=== PATIENT | female | born 1950 | race Caucasian/White ===

== ENCOUNTER 2021-09-22 12:44 | Emergency (ER) | payer OTHER, SELFPAY ==
[2021-09-22 12:46] VITALS: BP 129/80; PULSE 103; RESP 16; TEMP 36.3; O2SAT 94; BMI 30.2
--- NOTE | 2021-09-22 13:25 | RAD_ITS ---
STUDY: X-RAY - LEFT FOOT CLINICAL: Left foot pain, left foot injury 1 week ago. TECHNIQUE: 3 view(s) of the foot. COMPARISON: None. FINDINGS: There is a small plantar calcaneal enthesophyte. There is a small avulsion fracture at the medial aspect of the medial cuneiform only demonstrated on the oblique view. Normal visualized subtalar, talonavicular, calcaneocuboid, tarsal and tarsometatarsal articulations. Normal metatarsi. There are marginal osteophytes and severe joint space narrowing of the metatarsophalangeal joint of the great toe. Normal tibial and fibular sesamoid bones. Normal interphalangeal joint of the great toe. Normal phalanges of the great toe. Normal second through fifth metatarsophalangeal joints. Normal interphalangeal joints and phalanges of the lesser toes. The soft tissue structures are unremarkable. RAD/Foot min 3 Views IMPRESSION: Small avulsion fracture at the medial aspect of the medial cuneiform of indeterminate age. Osteoarthritis of the first metatarsophalangeal joint. Electronically Signed: Kodak Kelly MD at 14:06 EST Tel , Service support ,
--- NOTE | 2021-09-22 13:37 | ED.VIS.LOWEX ---
HPI History of Present Illness Chief Complaint: Lower Extremity Injury Detail of Chief Complaint: Left foot injury. Informant: patient and spouse/S.O. Occured/Mechanism Mechanism/Context: Yes injury Onset/Context/Timing Onset: Days Context: Sudden Onset Timing: Continuous Current Severity: Mild Maximum Severity: Mild Associated Symptoms Associated Symptoms: Negative for Parasthesia, Weakness and Loss of Funtion Narrative Narrative: 71-year-old female history of COPD. States she was getting in bed about a week ago when she lost her balance fell and injured her left foot. She has had bruising and swelling to it since that time. It is still very uncomfortable to walk on and she wanted evaluated. She denies any ankle injury. She denies any other complaints. Prior similar symptoms: No Recent Illness/Hospitalization: No PFSH PFSH Allergy/AdvReac Type Severity Reaction Status Date / Time No Known Allergies Allergy Verified 09/22/21 12:45 Social History Smoking Status: Current every day smoker tobacco type: cigarettes ROS ROS ED ROS Narrative Denies recent illness. Review of Systems ROS Unobtainable: Denies due to encephalopathy Constitutional Constitutional ED: Denies fever(s) Eyes Eyes: Denies change in vision ENT ENT ED: Denies ear pain Cardiovascular Cardiovascular: Denies chest pain Respiratory/Chest Respiratory/Chest: Denies dyspnea Gastrointestinal Gastrointestinal: Denies abdominal pain Genitourinary Genitourinary ED: Denies dysuria Musculoskeletal Musculoskeletal: Denies myalgias Integumentary Denies rash Neurologic Neurologic: Denies headache(s) Psychiatric Psychiatric: Denies depression Endocrine Endocrinology: Denies polyuria Hematologic/Lymphatic Hematologic/Lymphatic: Denies easy bruising Allergic/Immunologic Allergic/Immunologic ED: Denies urticaria EXAM Physical Exam Narrative Exam Narrative: 71-year-old female no acute distress vital signs stable afebrile. HEENT exam unremarkable atraumatic moist with membranes. Neck nontender. Lungs clear to auscultation. Heart regular rhythm no murmur. Chest wall nontender. Abdomen soft nontender normal bowel sounds no peritoneal signs. Pelvic girdle intact. Hips are nontender. No shortening or rotation. Normal flexion-extension. Both upper extremities are nontender no deformity. Normal range of motion. Right lower extremity nontender normal range of motion. Left lower extremity left foot is tender swollen and bruised. X-ray will be obtained. Ankle and knee are nontender. Neurologically she is awake and alert. Const Vital Signs: 09/22/21 12:46 Temperature 97.3 F L Temperature Source Temporal Pulse Rate 103 H Respiratory Rate 16 Blood Pressure 129/80 H Blood Pressure Mean 96 Pulse Ox 94 Oxygen Delivery Method Room Air Positive well nourished, well developed and obese; Negative for cachectic, contractures or unkempt General Appearance ED: well developed and NAD; Negative for unkempt, cachectic or contractures Nutritional Appearance: obese; Negative for cachectic HEENT Reports moist mucous membranes normocephalic and atraumatic; Negative for trauma or tenderness Eyes PERRL Neck full ROM and supple Thyroid: Negative for tender Chest Wall inspection of chest normal and palpation of chest normal Resp normal respiratory effort, no retractions and clear to auscultation bilaterally Auscultation: Negative for rales, rhonchi or wheezes Cardio regular rate, regular rhythm, S1 normal heart sound, S2 normal heart sound and no murmurs GI non-tender, non-distended and no masses Auscultation: normoactive bowel sounds Palpation: soft; Negative for tender, guarding or rebound tenderness present Back/Spine no CVA tenderness General Back: Negative for CVA tenderness Cervical Spine: Negative for cervical spine tenderness Thoracic Spine / Upper Back: Negative for thoracic spinal tenderness Lumbar Spine / Lower Back: Negative for lumbar spinal tenderness Extremity normal to inspection and full ROM Extremity Narrative: Except left foot bruised mildly swollen tender. No bony deformity. Skin intact. General Extremety ED: Negative for cyanosis General Extremity: Negative for cyanosis Neuro oriented x3 and moves all extremities Sensorium / Orientation: alert, oriented to person, oriented to place and oriented to time; Negative for orientation impaired, confused, lethargic or stuporous Motor Exam: strength 5/5 throughout Psych mental status grossly normal Appearance: Negative for unkempt Mood & Affect: Negative for anxious Skin no wounds Skin Narrative: Bruising left foot. Rashes: no rashes Trauma: Negative for abrasion or laceration MDM MDM MDM Narrative Medical decision making narrative: 71-year-old female fell a week ago bruising tenderness to her left foot x-ray being obtained. Repeat exam at 3:25 PM patient is doing well. She is dressed sitting in a chair ready to go. We went over x-ray results. They know to follow-up with a local food safety officer if not improving. Radiography Diagnostic Testing: Clinical Impression(s) from Imaging Studies Foot X-Ray 09/22/21 13:25 IMPRESSION: Small avulsion fracture at the medial aspect of the medial cuneiform of indeterminate age. Osteoarthritis of the first metatarsophalangeal joint. Electronically Signed: Kodak Kelly MD at 14:06 EST Tel , Service support , Left foot x-ray 3 views interpreted by myself the radiologist showed chronic changes primarily osteoarthritis of the left great toe. There is a small avulsion fracture of the medial cuneiform bone which is age-indeterminate and may have nothing to do with today's evaluation or may have happened when she fell. I went over that with the patient and her . Discharge Plan Triage Chief Complaint: Lower Extremity Injury ED Provider: Casey Gonzales Dx/Rx/DC Orders Primary Care Provider: Saleem Jarrett
== END 2021-09-22 15:32 | disposition home or self-care (01) ==
PROVIDERS: Emergency Provider Emergency Medicine; PCP Family Medicine
DX: S90.32XA Contusion of left foot, initial encounter (principal); W01.0XXA Fall on same level from slipping, tripping and stumbling without subsequent striking against object, initial encounter; Y93.9 Activity, unspecified; Y92.9 Unspecified place or not applicable; Y99.9 Unspecified external cause status; J44.9 Chronic obstructive pulmonary disease, unspecified; E66.9 Obesity, unspecified; F17.210 Nicotine dependence, cigarettes, uncomplicated
CPT/HCPCS: 73630; 99282

== ENCOUNTER 2021-11-05 08:42 | Outpatient (CLI) | payer MEDICARE, SELFPAY ==
--- NOTE | 2021-11-05 08:49 | US_ITS ---
STUDY: ABDOMINAL ULTRASOUND REASON FOR EXAM: Female, 71 years old. THROMBOCYTOPENIA TECHNIQUE: Transabdominal ultrasound was performed with real-time and static woo scale imaging. TECHNICAL QUALITY: Adequate. COMPARISON: None. FINDINGS: Liver: The liver measures 16.9 cm. There is increased echogenicity consistent with fatty infiltration. The bile ducts are within normal limits. There is hepatic color flow. The direction of portal flow is hepatopetal. There is no demonstrated mass lesion. Portal vein measurement: Gallbladder: Normal distended gallbladder. The gallbladder wall measures 3 mm. There is a negative sonographic Ye''s sign. There is no pericholecystic fluid. There are no gallstones. Common Bile Duct (C.B.D.): The common bile duct measures 6 mm. Pancreas: Normal size of the head, body and tail of the pancreas. There is normal echogenicity of the pancreas. There is no demonstrated pancreatic mass or cyst. Spleen: Spleen is atrophic The spleen measures 5.4 cm. Right Kidney: Normal size of the right kidney. The right kidney measures 10.4 x 5.0 x 5.2 cm. Normal renal cortex. The right cortex measures 1.6 cm. There is no demonstrated renal mass or cyst. There is no right hydronephrosis. Left Kidney: Normal size of the left kidney. The left kidney measures 10.0 x 5.1 x 5.8 cm. Normal renal cortex. The left cortex measures 1.5 cm. There is no demonstrated renal mass or cyst. There is no left hydronephrosis. Aorta: Tapers normally I.V.C.: The IVC is patent. There is no ascites. US/Abdomen Complete IMPRESSION: Fatty liver, no discrete lesion Atrophic spleen at 5.4 cm but no sonographic evidence of abnormal mass Electronically Signed: Pj Britt MD at 10:25 EST , Service support ,
--- NOTE | 2021-11-05 08:49 | US_ITS ---
STUDY: THYROID ULTRASOUND REASON FOR EXAM: Female, 71 years old. Thyroid nodule. TECHNIQUE: Ultrasound evaluation of the thyroid was performed with real-time and static woo-scale imaging. COMPARISON: None. FINDINGS: RIGHT LOBE: The right lobe of the thyroid gland measures 4.5 cm x 2.2 cm x 3 cm. There is a heterogeneous echotexture. There is a 1.9 cm x 1.3 cm x 1.6 cm solid and cystic nodule in the lower pole of the right lobe. Intranodular vascularity is seen. LEFT LOBE: The left lobe of the thyroid gland measures 3.8 cm x 1.7 cm x 2.9 cm. There is a heterogeneous echotexture. There are no demonstrated solid, cystic or complex lesions. ISTHMUS: The isthmus measures 3 mm. The regional lymph nodes are normal. US/Thyroid IMPRESSION: 1.9 cm x 1.3 cm x 1.6 cm solid and cystic nodule in the lower pole of the right lobe of the thyroid. Correlation with nuclear medicine thyroid uptake and scan is recommended. Electronically Signed: Jose D Esposito MD at 10:51 EST , Service support ,
== END 2021-11-05 23:59 | disposition short-term general hospital (02) ==
PROVIDERS: PCP Family Medicine; Referring Provider Family Medicine; Visit Provider Family Medicine
DX: E04.1 Nontoxic single thyroid nodule (principal); D69.6 Thrombocytopenia, unspecified
CPT/HCPCS: 76536; 76700

== ENCOUNTER → 2022-04-28 | Outpatient (CLI) | payer MEDICARE, SELFPAY ==
[2022-04-28 11:55] LABS: Hematocrit 44.9 % (37-47); Hemoglobin 15.8 g/dL (12.0-15.0); Mean Corp Hgb Conc 35.2 g/dL (32-36); Mean Corpuscular Hgb 36.8 pg (27.0-32.0); Mean Corpuscular Volume 104.7 fL (81-99); Platelet Count 148 K/mm3 (150-450); RBC Distribution Width SD 58.1 fl (35.1-43.9); Red Blood Count 4.29 M/mm3 (4.2-5.4); White Blood Count 3.8 K/mm3 (4.4-11.0)
[2022-04-28 12:22] LABS: ALB/GLOB Ratio 0.9 RATIO (0.9-2.4); AST(SGOT) 49 U/L (15-37); Alanine Aminotransfer ALT/SGPT 32 U/L (13-56); Albumin, Serum 3.6 g/dL (3.2-5.0); Alkaline Phosphatase 74 U/L (45-117); Anion Gap 6 (5-15); BUN 8 mg/dL (7-18); BUN/Creat Ratio 12.2 RATIO (10-20); Calcium,Total 8.7 mg/dL (8.5-10.1); Chloride 107 mmol/L (98-107); Creatinine, Serum 0.66 mg/dL (0.55-1.02); EST Glomerular Filtration Rate 94 mL/min (>60); Est Glom Filt Rate - Afr Amer 114 mL/min (>60); Globulin 3.8 g/dL (2.2-4.2); Glucose 84 mg/dL (74-106); Potassium 3.9 mmol/L (3.5-5.1); Protein, Total 7.4 g/dL (6.4-8.2); Sodium Level 142 mmol/L (136-145)
== END | disposition home or self-care (01) ==
LOC: MTLAB 10:35
PROVIDERS: PCP Family Medicine; Referring Provider Psychiatry & Neurology Neurology; Visit Provider Psychiatry & Neurology Neurology
DX: H81.90 Unspecified disorder of vestibular function, unspecified ear (principal)
CPT/HCPCS: 36415; 80053; 85027

== ENCOUNTER 2022-06-10 10:00 | Outpatient (RCR) | payer MEDICARE, SELFPAY ==
--- NOTE | 2022-04-29 13:50 | HP.PTEVAL ---
Patient's Visit Information KING METCALF is a 71 year old F referred to Physical Therapy by Dr. Raheem Cristina MD with a diagnosis of Peripheral vestibulopathy. Date of Evaluation: 04/29/22 Physical Therapist: Dominick Hernandez, DPT, OCS, CSCS - Visit Plan Frequency: 1x/Week Duration: 4-6 Weeks Plan: weekly x 4-6 for progression of habituation exercises and balance(ec) as needed. - Subjective Off and on dizzyness for over a year. Gets it daily. Short duration, not sure what causes it. Getting up and lying down can cause. Described as spinning. Sees Dr. Cristina but unable to tell me why she sees him. Dr. Jarrett sent her there. Has some numbness in L little finger. No pain. Not weakness, not imbalanced. 3 falls, 2 going to bathroom at night a while ago. 3rd one was this year fell going up step catching foot on step. Last dizzy was couple days ago. Poor historian. Lives with in one story with basement and she does not use it. One step to enter, does it well as it has grab bar. Dress self, bathe self. No cane or walker needed but has them. Hobbies:computer. Exercises: [email or web address] class 3x/week. Not employed. - Objective Walks hunched over but I with short steps, able to heel raise. Trasnfers without UE I. Steps require rail but reciprocal and I. Sensation LE WNL to gross light touch. reflexes 1/3 patella and achilles. LE strength 4-/5. Romberg eo 30 adn ec sway but 30 sec easily. - B hallpike zack and roll test. dizzy up from R>L hallpike but no nystagmus. Oculomotor: no nystagmus with gaze or head shake. - skew eye deviation. - ocular tilt. - head thrust. pursuit and saccades are slow and discoordinated but not symptomatic. VOR is slow but asymptomatic. min issues today are dizzyness up from both hallpike and ec balance challenges. - Balance/Special Test Scores Functional Gait Assessment Score: 24 % Disability: 20.0000 Dizziness Score: 26 - Goals Goal 1:: Abolish dizzyness with sitting up Goal Time Frame: 4-6 Weeks Goal 2:: FGA to diminish fall risk Goal Time Frame: 4-6 Weeks Goal 3:: DHI score 15 or better Goal Time Frame: 4-6 Weeks Goal 4:: I management of condition Goal Time Frame: 4-6 Weeks - Rehabilitation Potential Physical Therapy Diagnosis: vestibular weakness causing balance and some positional challenges. Rehabilitation Potential: Fair - Anticipated Interventions Patient/Client Instruction: Educate patient on: Condition, Plan of Care For the Purpose of:: To increase tolerance to activity/condition/position, To improve balance Therapeutic Exercise to Include: Balance training Comment: habituation For the Purpose of:: To increase tolerance to activity/condition/position, To improve ability of physical actions for home/community/work/leisure, To improve balance, To improve safety with gait Thank you for the opportunity to evaluate your patient. For Medicare and Medicare HMO plans, please review the plan of care and approve it. It will need to be FAXED BACK to us at [phone] for Medicare purposes. For Medicare only, by signing this I certify the plan of care. Please let me know if there are questions or concerns regarding this plan of care. Physician Signature: Date:
--- NOTE | 2022-06-10 10:13 | HP.PTDCSUM ---
It has been my pleasure to treat KING METCALF referred by Dr. Raheem Cristina MD, with the diagnosis of Peripheral vestibulopathy for a total of 4 visit(s). Discharge Date: 06/10/22 Please see the following information for a summary of their discharge status. Subjective: Did well over the last couple weeks. balance is improving. No problems int he last few weeks. One dizzy spell in last 3 weeks getting up from sitting and lasted 2 seconds. Activities normal at home and balance class going well. doing exercises e very day. To Dr. Cristina in september % Improvement: 95 Objective/Function: FGA much better and above average for age. Walking well and without hesitation. No positions causing dizzyness today, subjectively 95% better. Goal 1:: Abolish dizzyness with sitting up Goal Progress: Goal Met Goal 2:: FGA 26/30 to diminish fall risk Goal Progress: Goal Met Goal 3:: DHI score 15 or better Goal Progress: Goal Met Goal 4:: I management of condition Goal Progress: Goal Met Plan: d/c Discharge Comments: Will f/u with doctor in September. If there are questions or concerns regarding this patient's physical therapy, please feel free to call me at [phone]. Thank you for the referral of this patient. Sincerely, Dominick Hernandez, DPT, OCS, CSCS Balance/Gait/Functional tests - Balance/Special Test Scores Functional Gait Assessment Score: 29 % Disability: 3.3400 Dizziness Score: 10
== END 2022-06-10 13:19 | disposition home or self-care (01) ==
LOC: PT 10:00
PROVIDERS: PCP Family Medicine; Referring Provider Psychiatry & Neurology Neurology; Visit Provider Psychiatry & Neurology Neurology
DX: H81.90 Unspecified disorder of vestibular function, unspecified ear (principal)
CPT/HCPCS: 97110; 97162; 97164; 97530

== ENCOUNTER 2022-12-29 07:48 | Emergency (ER) | payer MEDICARE, SELFPAY ==
[2022-12-29 07:49] VITALS: BP 146/93; PULSE 107; RESP 18; TEMP 36.6; O2SAT 94
[2022-12-29 07:51] VITALS: BMI 30.9
--- NOTE | 2022-12-29 08:31 | CT_ITS ---
STUDY: CT LUMBAR SPINE WITHOUT CONTRAST REASON FOR EXAM: Female, 72 years old. Low back pain following a fall. RADIATION DOSAGE (If Supplied By Facility): CTDIvol = ( 21.65 ) mGy, DLP = ( 558.61 ) mGycm TECHNIQUE: The patient was scanned in a multi detector CT scanner. High resolution transaxial imaging was performed. Images were obtained from T12 to S1 level. Sagittal and coronal images were reconstructed. Individualized dose optimization techniques were used for this CT. COMPARISON: None FINDINGS: There is an exaggerated lumbar lordosis. There is no substantial scoliosis. Demineralization of the lumbar vertebrae. 50% loss of height of the superior endplate of the T12 vertebra in keeping with a compression fracture. No significant displacement is seen. L1-2: Normal endplates. Normal disc height and morphology. Normal bilateral facet joints. Normal central canal and bilateral lateral recesses. Normal bilateral intervertebral neural foramina. L2-3: Mild degree of anterior spondylosis. L3-4: Minimal degree of anterior listhesis of L3 on L4 most likely secondary to the facet joint osteoarthritis. Mild degree of central canal stenosis due to mild diffuse posterior disc bulge as well as a hypertrophy of the ligamenta flava. Facet joint osteoarthritis and hypertrophy with bilateral neural foraminal stenosis. L4-5: Mild degree of diffuse posterior disc bulge. Mild degree of bilateral neural foraminal stenosis. L5-S1: Normal endplates. Normal disc height and morphology. Normal bilateral facet joints. Normal central canal and bilateral lateral recesses. Normal bilateral intervertebral neural foramina. Atherosclerotic plaque formation of the infra renal abdominal aorta. CT/Spine Lumbar without Contrast IMPRESSION: 50% loss of height of the T12 vertebrae 80 with a compression fracture. Minimal anterior listhesis of L3 on L4 most likely secondary to the facet joint osteoarthritis. Electronically Signed: Jose D Esposito MD at 10:08 [facility] ,
--- NOTE | 2022-12-29 08:31 | CT_ITS ---
STUDY: CT BRAIN WITHOUT CONTRAST REASON FOR EXAM: Female, 72 years old. Head injury due to a recent fall. RADIATION DOSAGE (If Supplied By Facility): CTDIvol = ( 44.99 ) mGy, DLP = ( 798.92 ) mGycm TECHNIQUE: Transaxial CT imaging of the brain was performed without administration of intravenous contrast material. Individualized dose optimization techniques were used for this CT. COMPARISON: No relevant priors. FINDINGS: Normal soft tissue structures. Normal calvarium. There is mild cerebral atrophy with widening of the extra-axial spaces and ventricular dilatation. There are areas of decreased attenuation within the white matter tracts of the supratentorial brain, consistent with microvascular disease changes. Normal basal ganglia and thalami. Normal brainstem. Normal cerebellum. There is no intracranial hemorrhage. There are no findings of an acute ischemic infarction. Atherosclerotic calcification of the cavernous portions of the internal carotid arteries bilaterally. Normal visualized paranasal sinuses. CT/Brain/Head without Contrast IMPRESSION: Chronic involutional changes of the brain. Electronically Signed: Jose D Esposito MD at 10:05 EST ,
--- NOTE | 2022-12-29 08:31 | CT_ITS ---
STUDY: CT THORACIC SPINE WITHOUT CONTRAST REASON FOR EXAM: Female, 72 years old. Back pain following a fall. RADIATION DOSAGE (If Supplied By Facility): CTDIvol = ( 18.51 ) mGy, DLP = ( 634.79 ) mGycm TECHNIQUE: The patient was scanned in a multi detector CT scanner. High resolution imaging was performed. Images were obtained from T1 to T12 vertebral level. Sagittal and coronal images were reconstructed. Individualized dose optimization techniques were used for this CT. COMPARISON: None. FINDINGS: There is multilevel degenerative disc disease and cervical spondylosis. There is an increased kyphosis of the thoracic spine. There is no substantial scoliosis. There is multilevel endplate spondylosis of the thoracic spine. There is multilevel degenerative disc disease with loss of the disc space heights. 50% loss of height of the superior endplate of the T12 vertebrae in keeping with a compression fracture. Atherosclerotic calcification of the thoracic aorta. Increased markings at the lung bases suggestive of atelectasis and/or scarring. CT/Spine Thoracic without Contras IMPRESSION: 50% loss of height of the T12 vertebrae in keeping with a compression fracture. Electronically Signed: Jose D Esposito MD at 10:15 EST ,
--- NOTE | 2022-12-29 08:31 | CT_ITS ---
STUDY: CT CHEST, ABDOMEN T PELVIS WITH CONTRAST REASON FOR EXAM: Female, 72 years old. History of fall. Diffuse pain. RADIATION DOSAGE (If Supplied By Facility): CTDIvol = ( 14.89 ) mGy, DLP = ( 1210.88 ) mGycm TECHNIQUE: Transaxial imaging was performed following intravenous administration of IV 100mL [id number]-300. Individualized dose optimization techniques were used for this CT. COMPARISON: No relevant priors. FINDINGS: CHEST Minimally enlarged right lobe of the thyroid with the a focal hypodensity in the posterior aspect. Mild degree of increased linear markings at the lung bases slightly more prominent on the right side suggestive of a mild bibasilar scarring and/or atelectasis. There is no demonstrated pleural abnormality. There are calcifications of the coronary arteries. There are multiple small lymph nodes within the mediastinum, which are normal in size and morphology most compatible with reactive lymph hyperplasia. Normal hilar regions. Normal unenhanced pulmonary arteries. There is atherosclerotic calcification of the aortic arch with tortuosity and elongation of the aortic arch and descending thoracic aorta. There are multi-level degenerative changes of the thoracic spine. 50% loss of height of the T12 vertebrae suggestive of compression fracture. Diffuse fatty infiltration of the liver. ABDOMEN There is decreased attenuation of the liver consistent with steatosis. Normal gallbladder and extrahepatic biliary system. Normal spleen. Normal pancreas. Normal bilateral adrenal glands. Normal right kidney. Normal left kidney. There is a small hiatal hernia. Normal small intestine. There are multiple colonic diverticula consistent with diverticulosis. The appendix is visualized and appears normal. There is diffuse atherosclerotic calcification of the abdominal aorta and its major visceral branches, without a demonstrated aneurysm. Normal inferior vena cava. Normal retroperitoneum. Normal abdominal wall. 50% loss of height of the superior endplate of the T12 vertebrae. PELVIS Normal urinary bladder. There is no pelvic fluid. There is no pelvic lymphadenopathy or mass lesion. There is diffuse atherosclerotic calcification of the pelvic arteries. CT/CT Chest, Abd, Pel w/Contrast IMPRESSION: 50% loss of height of the superior endplate of the T12 vertebrae. Diffuse fatty attrition of the liver. Mild degree of increased linear markings at the lung bases suggestive of atelectasis and/or scarring. Electronically Signed: Jose D Esposito MD at 10:13 EST ,
[2022-12-29 08:52] LABS: Absolute Lymphocyte Count 0.45 X10^3/uL (0.83-4.51); Absolute Neutrophil Count 5.6 X10^3/uL (2.0-7.7); Basophil# 0.03 X10^3/uL; Basophil% 0.4 % (0-1); Eosinophil# 0.01 X10^3/uL; Eosinophils% 0.1 % (0-5); Hematocrit 47.2 % (37-47); Hemoglobin 17.1 g/dL (12.0-15.0); Lymphocyte # 0.45 X10^3/ul (0.83-4.51); Lymphocyte % 6.7 % (19-41); Mean Corp Hgb Conc 36.2 g/dL (32-36); Mean Corpuscular Hgb 37.3 pg (27.0-32.0); Mean Corpuscular Volume 103.1 fL (81-99); Mean Platelet Vol. 10.5 fl (6.2-12.0); Monocyte# 0.52 X10^3/uL; Monocyte% 7.8 % (0-10); NRBC Flagged by Analyzer 0 % (0-5); Neutrophil # 5.62 X10^3/uL (2.7-7.7); Neutrophil % 84.3 % (47-70); POSITIVE COUNT YES; POSITIVE DIFFERENTIAL YES; Platelet Count 98 K/mm3 (150-450); Red Blood Count 4.58 M/mm3 (4.2-5.4); White Blood Count 6.7 K/mm3 (4.4-11.0)
[2022-12-29] MEDS: 0.9% Normal Saline 1,000 ML 1000 ML IV (08:53)
[2022-12-29] MEDS: HYDROmorphone 1 MG/ML Syringe 0.5 MG IV (08:55)
[2022-12-29] MEDS: Ondansetron 4 MG/2 ML Vial IV ×2 (08:55→11:19)
[2022-12-29 08:56] LABS: Differential Indicated SCAN CRITERIA MET
[2022-12-29 09:09] LABS: AST(SGOT) 59 U/L (15-37); Alanine Aminotransfer ALT/SGPT 35 U/L (13-56); Alkaline Phosphatase 108 U/L (45-117); Anion Gap 14 (5-15); BUN 7 mg/dL (7-18); BUN/Creat Ratio 13.6 RATIO (10-20); Chloride 96 mmol/L (98-107); Creatinine, Serum 0.52 mg/dL (0.55-1.02); EST Glomerular Filtration Rate 124 mL/min (>60); Est Glom Filt Rate - Afr Amer 150 mL/min (>60); Estimated Creatinine Clearance 37.81 ml/min; Glucose 91 mg/dL (74-106); Potassium 3.7 mmol/L (3.5-5.1); Sodium Level 133 mmol/L (136-145); Troponin-I HS 10 pg/mL (3.0-54.0)
[2022-12-29 09:25] LABS: Lactic Acid 3.3 mmol/L (0.4-1.9)
[2022-12-29 09:26] VITALS: BP 159/87; PULSE 86; RESP 20; TEMP 36.6; O2SAT 96
[2022-12-29 09:41] LABS: Differential Comment SCANNED
[2022-12-29] MEDS: HYDROmorphone 0.5 MG/0.5 ML SYRINGE IV (10:00)
[2022-12-29 10:10] VITALS: BP 133/85; PULSE 118; RESP 20; O2SAT 96
[2022-12-29 10:55] LABS: Bacteria 0 SEEN /hpf (None Seen); Mucous, Urine 0 SEEN /hpf (<or=2+); White Blood Cells 0 SEEN /hpf (0-5)
[2022-12-29 10:59] LABS: Color, Urine Yellow (Yellow); Glucose, Dipstick Normal (Normal); Ketone-Dipstick 50 mg/dl (Negative); Leukocyte Esterase-Dipstick Negative /ul (Negative); Nitrite-Dipstick Negative (Negative); Occult Blood-Urine 10 /ul (Negative); Protein-Dipstick 30 mg/dl (Negative); Urine Bilirubin Dipstick Negative (Negative); Urine Clarity Sl. Cloudy (Clear); Urine Urobilinogen Normal (Normal); Urine pH 6.5 (5.0 - 8.0)
[2022-12-29 11:09] LABS: Red Blood Cells-Urine 0-5 SEEN /hpf (0-5); Squamous Epithelial Cells - UA 0-5 SEEN /hpf (5-10)
[2022-12-29] MEDS: 0.9% Normal Saline 1,000 ML 999 ML IV (11:19)
[2022-12-29] MEDS: oxyCODONE 5 MG Tablet PO (11:19)
--- NOTE | 2022-12-29 11:45 | ED.RN ---
Pt continues to states they will be going home or leaving [facility]. Aware unable to be without 02 as her sat drops in the 80's. Dr Morris pina. Will discuss with social services director Araseli
--- NOTE | 2022-12-29 12:46 | CM.ED ---
Social Work Note Referral Source: [facility] Referral Reason: oxygen/support MAU Peralta met with MASSIEL and reviewed patient's symptoms as well as concerns for patient wishing to leave [facility] rather than be admitted to [facility]. MAU Peralta also reports patient will at minimum need to go home with oxygen if she isn't willing to stay as the patient's oxygen levels have been dropping while resting without additional oxygen. SW to follow up. SW met with patient and patient's and introduced herself and role as [facility] Director Workforce Management. Patient was agreeable to speak with SW with present. SW inquired about recent events as well as patient's needs. Patient reported she wasn't interested in staying at [facility] due to a negative experience she had at [facility]. Patient reports she wants to return home. Patient's explained they have someone that comes to clean their home and patient's does the cooking. Patient's reports the patient is a daily smoker and drinker, so she would not want to be in the hospital without access to those things. SW validated patient's concerns and provided emotional support. SW educated patient on the dangers of smoking with oxygen, patient and patient's voiced understanding that patient needs to be outside with the oxygen off inside if patient needs to smoke. SW inquired about the need for additional resources for alcohol use or other community resources. Patient declined additional resources. No other needs voiced at this time. MASSIEL reviewed the conversation with MAU Peralta and MD Caceres. MAU Peralta reports patient needs 3 lmp continual oxygen, MD in agreement. MASSIEL assisted MD in completing the Home oxygen script. MASSIEL contacted [facility] liaison Ronel to review referral for patient. Referral sent via [facility]. SW informed patient and patient's the [facility] liaison will be in to provide the oxygen tank and review instructions on use as soon as she is able. Patient and patient's voice understanding. No other needs voiced. SW remains available if needs arise. Plan: home with oxygen Araesli CASTILLO, CHRISS
[2022-12-29 12:50] LABS: Reflex Lactate? Y
--- NOTE | 2022-12-29 13:18 | EDS_ITS ---
HPI History of Present Illness Chief Complaint: Head Injury Informant: patient Narrative Narrative: Patient is a 72-year-old female with history of tobacco use, questionable COPD, hypertension presenting with generalized weakness and back pain. Patient sustained a fall 2 days ago where she did hit her head on a small table and then landed on her back. No loss of conscious at the time. Patient states she had taken a nap and stood up and then got dizzy. This caused her to fall. She is really been complaining of thoracic back pain since. She been taking Advil and started having upset stomach and started throwing up. She generally been able to eat or drink much. Does have a cough but does not feel like is particularly different than normal. Denies any shortness of breath. Denies any fever or chills. Denies any abdominal pain. No other complaints at this time. [facility] Medical History Alcohol abuse Chronic bronchitis Coagulation defect COPD (chronic obstructive pulmonary disease) COPD (chronic obstructive pulmonary disease) History of colon polyps Hypertension Migraines Osteopenia Pneumonia Popliteal aneurysm Home Medications amlodipine 5 mg tablet 5 mg PO DAILY BLOOD PRESSURE 04/27/22 [History Last Taken 12/29/22] citalopram 10 mg tablet 10 mg PO DAILY DEPRESSION 04/27/22 [History Last Taken 12/29/22] budesonide-formoterol HFA 80 mcg-4.5 mcg/actuation aerosol inhaler (Symbicort) 2 puff inhalation BID COPD 09/26/22 [History Last Taken 12/29/22] lactobacillus combination no.4 3 billion cell capsule (Probiotic) 3,000 mmu cells PO DAILY GUT HEALTH 12/29/22 [History Last Taken 12/29/22] methyl salicylate-menthol topical ointment 1 ea topical DAILY PRN BACK PAIN 12/29/22 [History Last Taken 12/29/22] multivitamin 1 tab PO DAILY HEALTH MAINTENANCE 12/29/22 [History Last Taken 12/29/22] ondansetron HCl 4 mg tablet 4 mg PO Q6H PRN nausea and vomiting 3 days #12 tabs 12/29/22 [Rx Last Taken Unknown] oxycodone-acetaminophen 5 mg-325 mg tablet (Endocet) 1 tab PO Q6H PRN pain 3 days #12 tabs 12/29/22 [Rx Last Taken Unknown] polyethylene glycol 3350 17 gram/dose oral powder (Miralax) 17 g PO DAILY #119 grams 12/29/22 [Rx Last Taken Unknown] vitamin B complex 1 cap PO DAILY SUPPLEMENT 12/29/22 [History Last Taken 12/29/22] Allergy/AdvReac Type Severity Reaction Status Date / Time No Known Allergies Allergy Verified 12/29/22 07:49 Family History Daughter Alcoholism Anxiety Sister Diabetes Mother Heart disease Hypertension CVA (cerebral vascular accident) Father Heart disease Brother Lung cancer Surgical History History of Social History Smoking Status: Current every day smoker tobacco type: cigarettes Tobacco: How many years used: 50 second hand exposure: No alcohol intake: current Alcohol type: hard liquor details: occasoinally substance use type: does not use what type of physical activity do you participate in: other details: silver sneakers frequency: 3-4 times per week marielos/adventist: Anglican seatbelt use: always ROS ROS ED Constitutional Constitutional ED: Denies chills or fever(s) Eyes Eyes: Denies change in vision Cardiovascular Cardiovascular: Denies chest pain or palpitations Respiratory/Chest Respiratory/Chest: Reports cough; Denies dyspnea Gastrointestinal Gastrointestinal: Denies abdominal pain Genitourinary Genitourinary ED: Denies dysuria or hematuria Musculoskeletal Musculoskeletal: Reports back pain; Denies arthralgias or neck pain Integumentary Denies rash Neurologic Neurologic: Denies headache(s), paresthesias or weakness Hematologic/Lymphatic Hematologic/Lymphatic: Denies easy bleeding or easy bruising EXAM Physical Exam Const Vital Signs: 12/29/22 07:49 12/29/22 07:51 12/29/22 09:26 Temperature 98 F 97.9 F Temperature Source Temporal Temporal Pulse Rate 107 H 86 Respiratory Rate 18 20 H Respiratory Effort Short of Breath Blood Pressure 146/93 H 159/87 H Blood Pressure Mean 110 111 Pulse Ox 94 96 Oxygen Delivery Method Room Air Nasal Cannula 12/29/22 10:10 12/29/22 14:47 Temperature Temperature Source Pulse Rate 118 H 100 Respiratory Rate 20 H 20 H Respiratory Effort Blood Pressure 133/85 H 134/87 H Blood Pressure Mean 101 Pulse Ox 96 95 Oxygen Delivery Method Nasal Cannula Positive well nourished and well developed General Appearance ED: well developed HEENT Reports dry mucous membranes HEENT Narrative: No scalp laceration appreciated. Approximately 2 cm irregular circumferential area of ecchymosis to the left parietal scalp. No associated hematoma. trauma Mouth ED: Yes dry mucous membranes Mouth: dry mucous membranes Eyes PERRL and EOMs intact bilaterally General Eye ED: Negative for pale conjunctiva Neck supple Neck Narrative: No midline tenderness, normal range of motion Chest Wall inspection of chest normal and palpation of chest normal Resp Resp Narrative: Mild tachypnea, diminished breath sounds at the bases. Cardio regular rhythm and no murmurs Rate: tachycardic GI normal to inspection, nondistended, normoactive bowel sounds and non-tender Palpation: Negative for guarding Back/Spine Back/Spine Narrative: No obvious deformity. No step-off sign. Tenderness to palpation approximately T12/L1 Extremity normal to inspection Extremity Narrative: No focal deformity Neuro oriented x3 Sensorium / Orientation: alert Motor Exam: general weakness Psych mental status grossly normal Skin no rashes or lesions noted and no wounds Skin Narrative: Ecchymosis to the left scalp?see above MDM MDM MDM Narrative Medical decision making narrative: Patient is evaluated for continued back pain. Patient had a fall after what sounds like a dizzy episode possibly near syncopal episode earlier in the week. Arrival she is seeming to have a hard time breathing however she is not hypoxic. She has clear breath sounds. Clinically I suspect patient has some underlying obstructive lung disease however she does not have a clear diagnosis of it. While in the ER patient does become hypoxic and is requiring 2 L of supplemental oxygen. She has midline back tenderness as well as signs of a prior head injury. She also reports that she has been having nausea and vomiting as well as constipation so small bowel obstructions on the differential. CT of the brain does not show any acute intracranial process or skull fracture. CT of the chest due to her increased work of breathing and to make sure she does not have an associated rib fracture is obtained as well as recons of the thoracic and lumbar spine. CT abdomen pelvis is obtained to rule out small bowel obstruction or acute intra-abdominal pathology. Septic work-up also obtained as patient is tachycardic upon arrival. Patient is found to have an acute T12 compression fracture consistent with her area of pain in her back. No other acute processes found. She is 84% on room air at rest. Patient denies feeling short of breath. Patient is counseled that I would recommend admission given her acute hypoxia of unknown origin (no signs of pneumonia or pneumothorax on her CT of her chest) as well as for pain control. Patient was given 2 doses of Dilaudid in the emergency room and does have adequate pain control. She also has a lactic acidosis of 3.3, her kidney function is normal however her hemoglobin is elevated 17.1 I suspect she is dehydrated/hemoconcentrated. Patient is given a 2 L of IV fluid and a repeat lactate it is 0.7. Blood cultures were ordered. Patient again refused admission. She will sign AGAINST MEDICAL ADVICE. I did arrange for home oxygen with social work. Ultimately it was discovered that patient smokes and drinks pretty heavily and does not want to go through detox/be admitted to the hospital because of the social reasons. In addition she had admission in the past to [facility] and had a very bad experience. Patient is counseled the risk of going home. She will be prescribed a short course of Percocet for her back pain as she does have an acute compression fracture but counseled at length do not mix it with alcohol. She is also counseled at length to not smoke cigarettes while wearing home oxygen. I did discuss the case with Dr. Smith, spine surgery, who gave her activity restrictions and instructed her to call the office later today to arrange next day follow-up if possible. Patient and are agreeable this plan of care. Patient is able to ambulate out of the emergency room. Finally patient is given a prescription for Zofran for her nausea as well as MiraLAX for opioid-induced constipation. As she is able to tolerate p.o. in the emergency room. Patient is given referral for pulmonology as well for her hypoxia to be evaluated outpatient. Encouraged to return to the emergency room should she change her mind about admission. History & Record Review Discussion w/independent historian: Family ( does not know the patient smokes and drinks regularly) Lab Data Labs: Laboratory Results - last 24 hr 12/29/22 12/29/22 12/29/22 08:25 08:25 08:40 WBC 6.7 RBC 4.58 Hgb 17.1 H Hct 47.2 H MCV 103.1 H MCH 37.3 H MCHC 36.2 H RDW Std Deviation 54.0 H RDW Coeff of Chelsie 14.0 Plt Count 98 L MPV 10.5 Immature Gran % (Auto) 0.700 Neut % (Auto) 84.3 H Lymph % (Auto) 6.7 L Lamar % (Auto) 7.8 Eos % (Auto) 0.1 Baso % (Auto) 0.4 Absolute Neuts (auto) 5.6 Absolute Lymphs (auto) 0.45 L Nucleated RBC % 0 Differential Comment SCANNED Sodium 133 L Potassium 3.7 Chloride 96 L Carbon Dioxide 23.0 Anion Gap 14 BUN 7 Creatinine 0.52 L Estim Creat Clear Calc 37.81 Est GFR (MDRD) Af Amer 150 Est GFR (MDRD) Non-Af 124 BUN/Creatinine Ratio 13.6 Glucose 91 Lactic Acid 3.3 H* Calcium 9.0 Total Bilirubin 1.50 H AST 59 H ALT 35 Alkaline Phosphatase 108 Troponin I High Sens 10 Total Protein 8.0 Albumin 4.0 Globulin 4.0 Albumin/Globulin Ratio 1.0 Urine Color Urine Clarity Urine pH Ur Specific Singer Urine Protein Urine Glucose (UA) Urine Ketones Urine Occult Blood Urine Nitrite Urine Bilirubin Urine Urobilinogen Ur Leukocyte Esterase Urine RBC Urine WBC Ur Squamous Epith Cells Urine Bacteria Urine Mucus 12/29/22 12/29/22 10:30 13:10 WBC RBC Hgb Hct MCV MCH MCHC RDW Std Deviation RDW Coeff of Chelsie Plt Count MPV Immature Gran % (Auto) Neut % (Auto) Lymph % (Auto) Lamar % (Auto) Eos % (Auto) Baso % (Auto) Absolute Neuts (auto) Absolute Lymphs (auto) Nucleated RBC % Differential Comment Sodium Potassium Chloride Carbon Dioxide Anion Gap BUN Creatinine Estim Creat Clear Calc Est GFR (MDRD) Af Amer Est GFR (MDRD) Non-Af BUN/Creatinine Ratio Glucose Lactic Acid 0.7 Calcium Total Bilirubin AST ALT Alkaline Phosphatase Troponin I High Sens Total Protein Albumin Globulin Albumin/Globulin Ratio Urine Color Yellow Urine Clarity Sl. Cloudy Urine pH 6.5 Ur Specific Singer 1.010 Urine Protein 30 H Urine Glucose (UA) Normal Urine Ketones 50 H Urine Occult Blood 10 H Urine Nitrite Negative Urine Bilirubin Negative Urine Urobilinogen Normal Ur Leukocyte Esterase Negative Urine RBC 0-5 SEEN Urine WBC 0 SEEN Ur Squamous Epith Cells 0-5 SEEN Urine Bacteria 0 SEEN Urine Mucus 0 SEEN Radiography Diagnostic Testing: Clinical Impression(s) from Imaging Studies Brain CT 12/29/22 08:31 IMPRESSION: Chronic involutional changes of the brain. Electronically Signed: Jose D Esposito MD at 10:05 EST , Chest/Abdomen/Pelvis CT 12/29/22 08:31 IMPRESSION: 50% loss of height of the superior endplate of the T12 vertebrae. Diffuse fatty attrition of the liver. Mild degree of increased linear markings at the lung bases suggestive of atelectasis and/or scarring. Electronically Signed: Jose D Esposito MD at 10:13 EST , Lumbar Spine CT 12/29/22 08:31 IMPRESSION: 50% loss of height of the T12 vertebrae 80 with a compression fracture. Minimal anterior listhesis of L3 on L4 most likely secondary to the facet joint osteoarthritis. Electronically Signed: Jose D Esposito MD at 10:08 EST , Thoracic Spine CT 12/29/22 08:31 IMPRESSION: 50% loss of height of the T12 vertebrae in keeping with a compression fracture. Electronically Signed: Jose D Esposito MD at 10:15 EST , Rhythm Strip Rhythm Strip: Sinus Tach Rate: 122 Ectopy: None EKG Initial EKG: Attestation: I personally reviewed and interpreted this EKG as follows: Comments: Sinus tachycardia at a rate of 122 bpm Left axis deviation Low voltage QRS Nonspecific T wave changes No prior EKG available for comparison Management Discussion w/another healthcare provider: Early Childhood Associate Teacher (Spine surgeon, Dr. Smith. We will arrange for close outpatient follow-up. Given lifting and movement restrictions) and garment worker/Case management (Arrange for home oxygen) Discharge Plan Triage Chief Complaint: Head Injury ED Provider: April Caceres Dx/Rx/DC Orders Clinical Impression: Compression fracture of T12 vertebra, Closed head injury, Acute dehydration, Elevated lactic acid level, Hypoxia Instructions: AMA, ED Fracture, Vertebral Compression, ED Scalp Contusion, ED Dehydration (Adult), ED Head Injury (Adult) Prescriptions: New oxycodone-acetaminophen [Endocet] 5-325 mg tablet 1 tab PO Q6H PRN (Reason: pain) 3 Days Qty: 12 0RF polyethylene glycol 3350 [Miralax] 17 gram/dose powder 17 g PO DAILY Qty: 119 0RF ondansetron HCl 4 mg tablet 4 mg PO Q6H PRN (Reason: nausea and vomiting) 3 Days Qty: 12 0RF No Action citalopram 10 mg tablet 10 mg PO DAILY amlodipine 5 mg tablet 5 mg PO DAILY budesonide-formoterol [Symbicort] 80-4.5 mcg/actuation HFA aerosol inhaler 2 puff inhalation BID multivitamin Tablet 1 tab PO DAILY BenGay Ointment 1 ea TOPICAL DAILY PRN (Reason: BACK PAIN ) vitamin B complex [B Complex] Capsule 1 cap PO DAILY Probiotic 3 billion cell Capsule 3,000 mmu cells PO DAILY Rx Instructions: administer with a meal Primary Care Provider: Mell López NP Referrals: Sen Rodríguez DO [Med Staff - Active Staff] - As soon as possible Dimas Smith DO [Med Staff - Active Staff] - As soon as possible (Call office today ) Mell López NP, ELECTRIFICATION ADVISER-C [Primary Care Provider] - Activity Restrictions/Additional Instructions: Do not lift more than 5 to 10 pounds. No repetitive bending twisting and take it easy. Please follow-up with your primary care doctor as well as pulmonology for further evaluation of your low oxygen. If you do not feel like you have adequate pain control, have worsening dehydration or worsening symptoms please return to the emergency room. Do not smoke while wearing oxygen. This is incredibly dangerous. Disposition Disposition: Against Medical Advice Discharge Date/Time: 12/29/22 14:50
[2022-12-29 13:51] LABS: Lactic Acid 0.7 mmol/L (0.4-1.9)
[2022-12-29 14:47] VITALS: BP 134/87; PULSE 100; RESP 20; O2SAT 95
== END 2022-12-29 14:50 | disposition left against medical advice (07) ==
PROVIDERS: Emergency Provider Emergency Medicine; PCP Internal Medicine; Visit Provider Emergency Medicine
DX: S22.080A Wedge compression fracture of T11-T12 vertebra, initial encounter for closed fracture (principal); J44.9 Chronic obstructive pulmonary disease, unspecified; S09.90XA Unspecified injury of head, initial encounter; R09.02 Hypoxemia; E86.0 Dehydration; T40.2X5A Adverse effect of other opioids, initial encounter; I10 Essential (primary) hypertension; R11.0 Nausea; R74.02 Elevation of levels of lactic acid dehydrogenase [LDH]; K59.03 Drug induced constipation; F17.210 Nicotine dependence, cigarettes, uncomplicated
CPT/HCPCS: 70450; 71260; 72128; 72131; 74160; 74177; 80053; 81001; 83605; 84484; 85025; 87040; 93005; 96361; 96374; 96375; 96376; 99285; J7030; Q9967; A4216; J2405

== ENCOUNTER → 2023-04-13 | Outpatient (CLI) | payer MEDICARE, SELFPAY ==
--- NOTE | 2023-04-14 05:54 | PFTCOMP_ITS ---
COMPLETE PULMONARY FUNCTION TEST INTERPRETATION Brief HPI: Patient is a 72-year-old female, currently under the care of Dr. Rodríguez, who presents to [facility] for complete pulmonary function tests secondary to diagnosis of nicotine dependence. Respiratory therapist reports good effort and reproducible results. Interpretation: Forced expiration spirometry shows no large airways obstructive ventilatory defect with an FEV1 of 86% predicted. There is no significant bronchodilator response by strict ATS criteria. Spirograms are of good quality and plateau normally. The respiratory flow volume loop shows a normal pattern. Lung volumes by body plethysmography show a normal total lung capacity at 4.55 L, 109% predicted. All other lung volumes are within normal limits. Diffusion capacity by carbon monoxide is normal at 96% predicted. The airway resistance is normal. No previous pulmonary function tests were available for review. Impression: These pulmonary function tests are grossly within normal limits
== END | disposition home or self-care (01) ==
LOC: PSN 09:57
PROVIDERS: PCP Internal Medicine; Referring Provider Internal Medicine Critical Care Medicine; Visit Provider Internal Medicine Critical Care Medicine
DX: J45.909 Unspecified asthma, uncomplicated (principal); F17.210 Nicotine dependence, cigarettes, uncomplicated
CPT/HCPCS: 94060; 94726; 94729

== ENCOUNTER 2023-06-05 11:30 | Outpatient (RCR) | payer MEDICARE, SELFPAY ==
--- NOTE | 2023-04-17 14:40 | HP.PTEVAL_ITS ---
Patient's Visit Information KING METCALF is a 72 year old F referred to Physical Therapy by [facility] with a diagnosis of PERSONAL HISTORY OF SPINE SURGERY ,BACK PAIN DUE TO INJURY. Date of Evaluation: 04/17/23 Physical Therapist: Albert Walton, PT, Cert MDT, OCS - Visit Plan Frequency: 2x /Week Duration: 6 Weeks Plan: S/P LUMABR FUSION WITH RODS AND SREWS WITH ALLOGRAFT FEBRUARY 15. LUMBAR BRACE ON ALL TIMES. PT INTERVETIONS BLE STRENGTHENING , POSRURAL EX'S ,DLS ,ENDURANCE ,FUNCTIONAL STRENGTHENING AND BALANCE PROGRAM - Subjective This 72 y/o female presents to physical therapy with lumbar fusion. Patient fell December 23 2022 at home ,patient went to ER had CATSCAN of thoracic and lumbar showed compression fracture. Patient had alot better after seen DR with lumbar brace. Then ~ 7 weeks symptoms worse with back brace and pain medication. Seen Back neurologist which patient had US and then had 2nd CATSCAN and recommended immediate surgery. Patient fusion with rods and 12 srews with fusion T11 ,12 bone allograft on February 15 [facility] placed in TLSO brace to be worn at all times. Patient also has bone stimulator vest. Patient had [facility] in 2xweek for 1 month. Patient return to [place] March 31 . Patient use rollator for gait. Denies paresthesia/tingling. Patient has one story home with basement with one step. Patient has walkin shower grab bars and shower bench. Patient is able to dress and needs assist with showering. Bowel/bladder -/ Coughing/sneezing-. Patient plans to have osteoporsis. Plan to keep brace on 6 months. RTD surgeon Jun. Patient condition affects QOL and f unction. Patient goals to return prior level and walk without device. - Pain Bilateral Back Pain Intensity (Out of 10): 1 Pain Intensity Range: 10 - Objective POSTURE: mild forward posture , mod thoracic fracture. NEURO: denies paresthesia/tingling ,reflexes L3-4,L4-L5,L5 -S1 1/3. GAIT: ambulatory with rollator with mild forward slow jessica. BALANCE: fair + with rollator. LUMBAR ROM: NT. FLEXABLITY: hamstrings min tight. MMT: ( Peak force) quads 23.4 left ,22.7 right ,hip flexion 18.6 right ,left 17.6 ,ankle 4/5 - Balance/Special Test Scores Oswestry Low Back Score: 35 - Goals Goal 1:: Patient to be I with HEP Goal Time Frame: 4-6 Weeks Goal 2:: Patient to ambulate with least restrictive device community distances. Goal Time Frame: 4-6 Weeks Goal 3:: Patient to demonstrate 50% improvement with decrease pain and improved function Goal Time Frame: 4-6 Weeks Goal 4:: Patient to improve peak force quads/hams/hip by 5-10 # to improve function with gait Goal Time Frame: 4-6 Weeks Goal 5:: Patient to improve back oswestry score by 5 points to improve QOL and function Goal Time Frame: 4-6 Weeks Goal 6:: Patient to improve CATSIB by 10 points to improve balance. Goal Time Frame: 4-6 Weeks - Rehabilitation Potential Physical Therapy Diagnosis: This patient underwent s/p lumbar surgery with fusion with back brace on all times uses rollator with pain ,decrease strength ,gait ,balance. and ADLS thus benefit from skilled PT Rehabilitation Potential: Good - Anticipated Interventions Patient/Client Instruction: Educate patient on: Condition, Plan of Care For the Purpose of:: To decrease pain, To increase ROM, To improve muscle performance and motor function, To increase tolerance to activity/condition/position, To improve ability of physical actions for home/community/work/leisure, To improve gait and locomotor functions, To increase flexibility/ROM, To improve endurance, To improve balance, To improve safety with gait, To reduce risk of recurrence, To improve tolerance to ADL's Therapeutic Exercise to Include: Strength training, Endurance training, Balance training, Body mechanics, Postural training, Gait and locomotor training, Dynamic Lumbar Stabilization Comment: BLE For the Purpose of:: To decrease pain, To improve muscle performance and motor function, To increase tolerance to activity/condition/position, To improve ability of physical actions for home/community/work/leisure, To improve health of tissue, To decrease soft tissue restriction, To increase flexibility/ROM, To improve endurance, To improve balance, To reduce risk of recurrence, To improve tolerance to ADL's Thank you for the opportunity to evaluate your patient. For Medicare and Medicare HMO plans, please review the plan of care and approve it. It will need to be FAXED BACK to us at [phone] for Medicare purposes. For Medicare only, by signing this I certify the plan of care. Please let me know if there are questions or concerns regarding this plan of care. Physician Signature: Date:
--- NOTE | 2023-06-05 11:59 | HP.PTDCSUM_ITS ---
Discharge Summary D/C summary: It has been my pleasure to treat KING METCALF referred by [facility], with the diagnosis of PERSONAL HISTORY OF SPINE SURGERY ,BACK PAIN DUE TO INJURY for a total of 13 visit(s). Discharge Date: 06/05/23 Please see the following information for a summary of their discharge status. Subjective Subjective: Patient ready for d/c due to leaving [facility] Pain Bilateral Back: Pain Intensity (Out of 10): 1 Overall Improvement % Improvement: 75 Objective Objective/Function: POSTURE: mild forward posture , mod thoracic fracture. NEURO: denies paresthesia/tingling ,reflexes L3-4,L4-L5,L5 -S1 1/3. GAIT: ambulatory with rollator with mild forward slow jessica. BALANCE: fair + with rollator. LUMBAR ROM: NT. FLEXABLITY: hamstrings min tight. MMT: ( Peak force) quads 343.4 left ,28.7 right ,hip flexion 23.6 right ,left 21.6 ,ankle 4/5 Goals Goal 1:: Patient to be I with HEP Goal Progress: Goal Met Goal 2:: Patient to ambulate with least restrictive device community distances. Goal Progress: Progressing Goal 3:: Patient to demonstrate 50% improvement with decrease pain and improved function Goal Progress: Goal Met Goal 4:: Patient to improve peak force quads/hams/hip by 5-10 # to improve function with gait Goal 5:: Patient to improve back oswestry score by 5 points to improve QOL and function Goal 6:: Patient to improve CATSIB by 10 points to improve balance. Goal Progress: Goal Met Plan Plan: D/C D/C Information Discharge Comments: HEP d/c sentence: If there are questions or concerns regarding this patient's physical therapy, please feel free to call me at [phone]. Thank you for the referral of this patient. Sincerely, Albert Walton, PT, Cert MDT, OCS Balance/Gait/Functional tests Balance/Special Test Scores CATSIB Score (Max score 120 seconds): 100 Oswestry Low Back Score: 16
== END 2023-06-05 14:16 | disposition home or self-care (01) ==
LOC: PT 11:30
PROVIDERS: PCP Internal Medicine; Referring Provider Internal Medicine; Visit Provider Internal Medicine
DX: M54.9 Dorsalgia, unspecified (principal); Z98.890 Other specified postprocedural states
CPT/HCPCS: 97110; 97162; 97530

== ENCOUNTER → 2024-05-22 | Outpatient (CLI) | payer MEDICARE, SELFPAY ==
--- NOTE | 2024-05-22 15:45 | CT_ITS ---
STUDY: LOW DOSE CT LUNG CANCER SCREENING REASON FOR EXAM: Female, 73 years old. SCREEN. Smoker 60+ years. 1.5 packs per day. RADIATION DOSAGE (If Supplied By Facility): CTDIvol = ( 3.02 ) mGy, DLP = ( 90.25 ) mGycm TECHNIQUE: No contrast was administered. Low dose technique was utilized (average mAS-38 and kVp 120). 1.25 mm axial source images with a slice interval of 1.25-mm were reconstructed in lung windows with coronal sagittal reformats. COMPARISON: December 29, 2022 NODULES: No suspicious pulmonary nodule. likely atelectasis in the left lower lung. Parenchyma: No airspace consolidation, effusion, or pneumothorax. Mild atelectasis or scarring in the lateral left lung base and posterior right lung base. Endobronchial lesion: Mild mucous or debris in the left mainstem bronchus. No evidence of solid endobronchial mass. No gross peribronchial thickening Aorta: Aortic atherosclerosis without ectasia or intramural hematoma. CORONARY ARTERIES: Moderate multivessel calcified coronary atherosclerosis. Heart: No cardiomegaly or pericardial effusion. Pulmonary artery: No main pulmonary arterial enlargement. Mediastinal nodes: No mediastinal adenopathy. Unremarkable hilar adenopathy. Other chest and abdominal findings: Right thyroid 1.5 cm nodule, stable to minimally increased in size from December 29, 2022. Unremarkable esophagus. Left breast surgical changes. Thoracolumbar fixation hardware partially seen. No acute osseous finding. Sequela old right posterior lateral rib fractures. CT/Low Dose CT Lung Screening IMPRESSION: No suspicious pulmonary nodule. New thick linear likely atelectasis or scarring in the left lower lung, possibly secondary to ongoing breast radiation, which could obscure pulmonary nodule. Clinical follow-up is recommended to exclude developing consolidation and pneumonia. 3 month follow-up CT is recommended to ensure resolution. Right thyroid 1.5 cm nodule, stable to minimally increased in size from December 29, 2022. Ultrasound characterization is recommended when clinically able. Lung-RADS category 0 - Additional lung cancer screening CT images and/or comparison to prior chest CT examination is needed. IMPORTANT NOTES FOR USE: ACR Lung-RADS Version 1.1 Assessment Categories Release Date: 2018 Category: Coded 0-4 bases on nodule(s) with highest degree of suspicion. Negative screen is defined as categories 1 and 2; a positive screen is defined as categories 3 and 4. Category 3 and 4A nodules that are unchanged on interval CT should be coded as category 2, and individuals returned to screening in 12 months. Category 4X: Category 3 or 4 nodules with additional imaging findings that increase the suspicion of lung cancer, such as spiculation, GGN that doubles in size in 1 year, enlarged lymph notes, etc. Category Modifiers: S (significant finding unrelated to lung cancer) Electronically Signed: Jaxson Sahu MD at 0:02 EDT ,
== END | disposition home or self-care (01) ==
PROVIDERS: PCP Internal Medicine; Referring Provider Internal Medicine; Visit Provider Internal Medicine
DX: Z12.2 Encounter for screening for malignant neoplasm of respiratory organs (principal); F17.210 Nicotine dependence, cigarettes, uncomplicated
CPT/HCPCS: 71271

== ENCOUNTER 2024-11-28 18:40 | Inpatient (IN) | payer MEDICARE, SELFPAY ==
[2024-11-28] VITALS (30 sets, daily range): BP systolic 106–131; BP diastolic 50–95; PULSE 84–120; RESP 12–35; TEMP 36.5–37.1; O2SAT 60–96; BMI 31.4; BMI 32.3
--- NOTE | 2024-11-28 18:57 | EKG12_ITS ---
Test Reason : SOB Blood Pressure : */* mmHG Vent. Rate : 155 BPM Atrial Rate : 86 BPM P-R Int : 168 ms QRS Dur : 70 ms QT Int : 352 ms P-R-T Axes : 54 -43 15 degrees QTcB Int : 565 ms Critical Test Result: High HR Sinus rhythm with frequent Premature ventricular complexes Left axis deviation Low voltage QRS Inferior infarct , age undetermined Cannot rule out Anterior infarct , age undetermined Abnormal ECG Confirmed by MELANIA JARQUIN, LEONIDES ([id number]), publications editor BEN GILLESPIE ([id number]) on 11/30/2024 8:05:21 AM Referred By: Confirmed By: LEONIDES VELÁZQUEZ MD
--- NOTE | 2024-11-28 19:14 | EDS_ITS ---
HPI History of Present Illness Chief Complaint: Shortness of Breath Narrative Narrative: Chief complaint and HPI: Shortness of breath. 74-year-old female with past medical history of COPD, HTN presents for evaluation of shortness of breath. History taken by patient as well as . Patient states at baseline she has a cough due to her COPD. She states over the past week she has been having increased shortness of breath. She has also had decreased appetite and is more fatigued. She denies any fever, chills, chest pain, abdominal pain, vomiting, dysuria. On arrival in the emergency department patient was hypoxic at 60% on room air. Placed on 6 L nasal cannula with improvement. She has a past medical history of breast cancer here. Denies a history of DVT/PE, blood clotting disorder, recent trauma or surgery, exogenous estrogen use, unilateral leg swelling, travel. Review of systems: See HPI Medications: As listed on the chart Allergies: As listed on the chart PFSH: Per chart Vital signs: As listed on the chart. Reviewed. Physical exam: Gen: A&O x3 Head: Normocephalic, atraumatic Eyes: No sclera icterus, conjunctiva clear ENT: Dry mucous membranes Neck: Trachea midline, No JVD CV: RRR, no murmurs, no peripheral edema Breast: Patient has thickening of the skin over her left breast compared to the right - states that this is new over the past 2-week, nontender and patient denies any pain, no inversion of the nipple or nipple discharge, not war m, the skin is darker in color compared to her normal skin however patient states that this is her baseline since receiving radiation from her previous breast cancer Resp: Lungs diminished, wheezing, On 6 L nasal cannula, GI: Abd soft, non-distended, non-tender, no r/r/g Musc: Full ROM, no deformity Skin: Warm, dry Neuro: Alert, oriented, grossly intact, sensation intact Psych: Cooperative, appropriate mood and affect [facility] Medical History (Updated 11/28/24 @ 22:[address] Karen Liang MD) History of breast cancer Obesity Asthma Anxiety and depression Tobacco use Thrombocytopenia HLD (hyperlipidemia) Chronic neck and back pain Alcohol abuse Osteopenia Coagulation defect Popliteal aneurysm COPD (chronic obstructive pulmonary disease) History of colon polyps Hypertension Migraines Chronic bronchitis Home Medications ?Medication ?Instructions ?Recorded ?Last Taken ?Type amlodipine 5 mg tablet 5 mg PO DAILY BLOOD PRESSURE 04/27/22 12/29/22 History budesonide-formoterol HFA 80 2 puff inhalation BID [employer] D 09/26/22 12/29/22 History mcg-4.5 mcg/actuation aerosol inhaler (Symbicort) lactobacillus combination no.4 3 3,000 mmu cells PO DA [facility] 12/29/22 12/29/22 History billion cell capsule (Probiotic) multivitamin 1 tab PO DAILY [facility] 12/29/22 12/29/22 History polyethylene glycol 3350 17 17 g PO DAILY #119 grams 0 12/29/22 Unknown Rx gram/dose oral powder (Miralax) vitamin B complex 1 cap PO DAILY SUPPLEMENT 12/29/22 History aspirin 81 mg capsule 81 mg PO DAILY 11/28/24 Unkn own History atorvastatin 40 mg tablet 40 mg PO DAILY 11/28/24 Unkn own History duloxetine 20 mg capsule,delayed 20 mg PO DAILY Unknown History release potassium chloride 10 mEq 10 meq PO DAILY 11/28/24 Unk nown History tablet,extended release(part/cryst) Allergy/AdvReac Type Severity Reaction Status Date / Time No Known Allergies Allergy Verified 11/28/24 18:41 Family History Daughter Alcoholism Anxiety Sister Diabetes Mother Heart disease Hypertension CVA (cerebral vascular accident) Father Heart disease Brother Lung cancer Surgical History History of S/P spinal fusion Social History (Updated 06/25/23 @ 09:36 by Angelika Ndiaye) household members: spouse Smoking Status: Heavy Smoker (>10/day) Tobacco: How many years used: 50 second hand exposure: No alcohol intake: current alcohol intake frequency: 0-2 drinks per day Alcohol type: hard liquor details: occasoinally substance use type: does not use what type of physical activity do you participate in: other details: silver sneakers frequency: 3-4 times per week marielos/buddhist: Buddhist seatbelt use: always EXAM Physical Exam Const Vital Signs: 11/28/24 18:41 11/28/24 18:41 11/28/24 18:43 Temperature 98.3 F 98.3 F Temperature Source Oral Oral Pulse Rate 95 110 H Respiratory Rate 30 H 27 H Respiratory Effort Respiratory Depth Respiratory Pattern Blood Pressure 121/76 H 121/76 H Blood Pressure Mean 91 91 Pulse Ox 60 92 60 Oxygen Delivery Method Room Air Nasal Cannula Room Air Oxygen Flow Rate (L/min) 6 Fraction of Inspired Oxygen (FIO2) 11/28/24 18:57 11/28/24 18:57 11/28/24 19:13 Temperature Temperature Source Pulse Rate Respiratory Rate 24 H Respiratory Effort Respiratory Depth Respiratory Pattern Blood Pressure Blood Pressure Mean Pulse Ox 95 95 Oxygen Delivery Method Nasal Cannula Nasal Cannula Nasal Cannula Oxygen Flow Rate (L/min) 6 6 6 Fraction of Inspired Oxygen (FIO2) 11/28/24 19:15 11/28/24 19:43 11/28/24 20:00 Temperature 98.0 F 98 F Temperature Source Oral Oral Pulse Rate 92 95 Respiratory Rate 28 H 23 H Respiratory Effort Short of Breath Labored Accessory Muscle Use Head [place] Respiratory Depth Deep Respiratory Pattern Tachypnea Blood Pressure 108/95 H 116/71 Blood Pressure Mean 99 86 Pulse Ox 95 95 Oxygen Delivery Method Nasal Cannula Nasal Cannula Nasal Cannula Oxygen Flow Rate (L/min) 6 6 6 Fraction of Inspired Oxygen (FIO2) 11/28/24 20:00 11/28/24 20:00 11/28/24 20:55 Temperature 98 F 98.1 F Temperature Source Oral Pulse Rate 95 92 86 Respiratory Rate 23 H 24 H 22 H Respiratory Effort Respiratory Depth Respiratory Pattern Blood Pressure 116/71 116/71 Blood Pressure Mean 86 86 Pulse Ox 95 92 Oxygen Delivery Method Room Air Oxygen Flow Rate (L/min) Fraction of Inspired Oxygen (FIO2) 11/28/24 20:55 11/28/24 21:00 11/28/24 21:43 Temperature 98.1 F Temperature Source Oral Pulse Rate 92 Respiratory Rate 24 H Respiratory Effort Respiratory Depth Respiratory Pattern Blood Pressure 106/50 L Blood Pressure Mean 68 Pulse Ox 92 93 92 Oxygen Delivery Method Nasal Cannula Nasal Cannula High Flow Oxygen Flow Rate (L/min) 6 6 15 Fraction of Inspired Oxygen (FIO2) 11/28/24 21:53 11/28/24 21:55 11/28/24 22:00 Temperature 98.1 F Temperature Source Temporal Pulse Rate 101 H 101 H Respiratory Rate 21 H 25 H 20 H Respiratory Effort Respiratory Depth Respiratory Pattern Tachypnea Blood Pressure 131/84 H Blood Pressure Mean 99 Pulse Ox 92 93 94 Oxygen Delivery Method High Flow Bi-pap Oxygen Flow Rate (L/min) 15 Fraction of Inspired Oxygen (FIO2) 25 MDM MDM MDM Narrative Medical decision making narrative: 74-year-old female with past medical history of COPD, HTN presents for evaluation of shortness of breath. Differential diagnosis includes but is not limited to COPD exacerbation, pneumonia, PE, ACS, viral illness, inflammatory breast cancer. On presentation patient is hypoxic at 60% on room air. She was placed on 6 L nasal cannula with improvement in saturations. NS bolus, DuoNebs, Solu-Medrol ordered. Cardiac/respiratory workup ordered. EKG reviewed see below. CBC without leukocytosis or anemia. Patient has baseline thrombocyto penia. BMP without ELISABETH. Troponin unremarkable. Lactic acid unremarkable. BNP unremarkable. Chest x-ray shows bibasilar pneumonia. Rocephin and azithromycin ordered. Patient's D-dimer elevated at 2.06. Cannot rule PE out at this time therefore CTA chest ordered. Shortly after coming back from CTA patient's hypoxia worsened. She was requiring 15 L nonrebreather with increased work of breathing. Patient placed on BiPAP. VBG ordered prior to BiPAP with pH of 7.32 and normal pCO2 of 32. CTA chest negative for PE. CTA shows left-sided pneumonia with air bronchograms. There is the patient's mild skin thickening of the left breast with subcutaneous soft tissue stranding. This correlates with patient's physical exam. Compression fracture deformity of T11 and T12 vertebral body. Patient and family updated of all the results and the plan for admission. Patient was discussed with hospitalist and admission was accepted. EKG: Interpreted by me/EM physician: EKG shows normal sinus rhythm with PVCs. She has T wave inversions in lead III which is new from previous EKG. Heart rate is normal. EKG is reading heart rate is 155 but this is incorrect. Diagnostic: Interpreted by me/EM physician: Bibasilar pneumonia 35 minutes of critical care time utilized in managing the patient. This is due to high probability of and deterioration of the patient based on the patient's condition and excludes any separately billable procedures. Impression: 1. Acute hypoxic respiratory failure requiring BiPAP 2. Pneumonia 3. COPD exacerbation 4. Concern for inflammatory breast cancer of the left breast 5. Chronic thrombocytopenia Lab Data Labs: Laboratory Results - last 24 hr 11/28/24 18:58 WBC 4.8 RBC 4.16 L Hgb 14.7 Hct 43.9 MCV 105.5 H MCH 35.3 H MCHC 33.5 RDW Std Deviation 69.1 H RDW Coeff of Chelsie 17.9 H Plt Count 93 L MPV 9.9 Immature Gran % (Auto) 1.000 H Neut % (Auto) 63.1 Lymph % (Auto) 18.7 L [place] % (Auto) 14.5 H Eos % (Auto) 1.5 Baso % (Auto) 1.2 H Absolute Neuts (auto) 3.0 Absolute Lymphs (auto) 0.90 Nucleated RBC % 0.8 Atypical Lymphocytes 1+ Polychromasia 1+ Anisocytosis 1+ Target Cells 1+ D-Dimer Quant (PE/DVT) 2.06 H* Sodium 133 L Potassium 3.9 Chloride 92 L Carbon Dioxide 29.0 Anion Gap 13 BUN 10 Creatinine 0.58 Estim Creat Clear Calc 56.44 Est GFR (MDRD) Af Amer 131 Est GFR (MDRD) Non-Af 109 BUN/Creatinine Ratio 17.4 Glucose 94 Lactic Acid 1.8 Calcium 8.8 Troponin I High Sens 9 B-Natriuretic Peptide 71.9 ABG Data ABG results: ABG 11/28/24 21:46 Specimen Type RAMIRO Sample Site Not entered O2 % 15.0 VBG pH 7.32 VBG pO2 50 H VBG HCO3 30 H VBG Total CO2 32 VBG O2 Sat (Calc) 81 H VBG Base Excess 4 H POC Mix VBG pCO2 Pt Tmp 58.4 H O2 Delivery Device Not entered Radiography Diagnostic Testing: Clinical Impression(s) from Imaging Studies Chest X-Ray 11/28/24 19:40 IMPRESSION: Pulmonary findings as above. Reading Location: [facility] Chest CTA 11/28/24 21:02 IMPRESSION: No evidence of pulmonary embolism. Patchy left basilar and lingular consolidation with air bronchograms, concerning for infection. Small right basilar atelectasis. Small bilateral pleural effusion. Mild skin thickening of the left breast with subcutaneous soft tissue stranding, please correlate clinically for infection. Compression fracture deformity of T11 and T12 vertebral body. One or more dose reduction techniques were used (e.g., Automated exposure control, adjustment of the mA and/or kV according to patient size, use of iterative reconstruction technique). Reading Location: [facility] Discharge Plan Triage Chief Complaint: Shortness of Breath ED Provider: Baltazar Kwon Dx/Rx/DC Orders Prescriptions: No Action amlodipine 5 mg tablet 5 mg PO DAILY budesonide-formoterol [Symbicort] 80-4.5 mcg/actuation HFA aerosol inhaler 2 puff inhalation BID multivitamin Tablet 1 tab PO DAILY vitamin B complex [B Complex] Capsule 1 cap PO DAILY Probiotic 3 billion cell Capsule 3,000 mmu cells PO DAILY Rx Instructions: administer with a meal polyethylene glycol 3350 [Miralax] 17 gram/dose powder 17 g PO DAILY Qty: 119 0RF potassium chloride 10 mEq tablet,ER particles/crystals 10 meq PO DAILY duloxetine 20 mg capsule,delayed release(DR/EC) 20 mg PO DAILY aspirin 81 mg capsule 81 mg PO DAILY atorvastatin 40 mg tablet 40 mg PO DAILY Primary Care Provider: Mell López NP Referrals: Mell López NP, [employer] [Primary Care Provider] - Print Language: Bolivian
[2024-11-28] MEDS: 0.9% Normal Saline (1000mL) 1,000 ML 999 ML IV (19:24)
[2024-11-28] MEDS: MethylPREDNISolone 125 MG/2 ML Vial IV (19:25)
[2024-11-28 19:38] LABS: Basophil# 0.06 X10^3/uL; Basophil% 1.2 % (0-1); Eosinophil# 0.07 X10^3/uL; Eosinophils% 1.5 % (0-5); Hematocrit 43.9 % (37-47); Hemoglobin 14.7 g/dL (12.0-15.0); Lymphocyte % 18.7 % (19-41); Mean Corp Hgb Conc 33.5 g/dL (32-36); Mean Corpuscular Hgb 35.3 pg (27.0-32.0); Mean Corpuscular Volume 105.5 fL (81-99); Mean Platelet Vol. 9.9 fl (6.2-12.0); Monocyte% 14.5 % (0-10); NRBC Flagged by Analyzer 0.8 % (0-5); Neutrophil # 3.04 X10^3/uL (2.7-7.7); Neutrophil % 63.1 % (47-70); POSITIVE COUNT YES; POSITIVE MORPHOLOGY YES; Platelet Count 93 K/mm3 (150-450); RBC Distribution Width CV 17.9 % (11.6-14.6); RBC Distribution Width SD 69.1 fl (35.1-43.9); Red Blood Count 4.16 M/mm3 (4.2-5.4); White Blood Count 4.8 K/mm3 (4.4-11.0)
--- NOTE | 2024-11-28 19:40 | RAD_ITS ---
PROCEDURE: CHEST PA AND LATERAL REASON FOR EXAM: Hypoxia. TECHNIQUE: Frontal and lateral views of the chest. COMPARISON: None. FINDINGS: The heart is enlarged. The mediastinal contour is unremarkable. [id number]-right basilar opacities which may represent infiltrate versus infection. Small [id number]-right pleural effusions. Thoracolumbar fixation. RAD/Chest PA and Lateral IMPRESSION: Pulmonary findings as above. Reading Location: [id number]
[2024-11-28 19:45] LABS: Differential Indicated SCAN CRITERIA MET
[2024-11-28 20:03] LABS: Lactic Acid 1.8 mmol/L (0.4-1.9)
[2024-11-28 20:06] LABS: Anion Gap 13 (5-15); BUN 10 mg/dL (7-18); BUN/Creat Ratio 17.4 RATIO (10-20); Calcium,Total 8.8 mg/dL (8.5-10.1); Chloride 92 mmol/L (98-107); Creatinine, Serum 0.58 mg/dL (0.55-1.02); EST Glomerular Filtration Rate 109 mL/min (>60); Est Glom Filt Rate - Afr Amer 131 mL/min (>60); Estimated Creatinine Clearance 56.44 ml/min; Glucose 94 mg/dL (74-106); Potassium 3.9 mmol/L (3.5-5.1); Sodium Level 133 mmol/L (136-145); Troponin-I HS 9 pg/mL (3.0-54.0)
[2024-11-28] MEDS: Ceftriaxone 1 GM/50 ML BAG IV (20:28)
[2024-11-28 20:36] LABS: BNP,B-Type NATRIURETIC PEPTIDE 71.9 pg/mL (0-100)
[2024-11-28] MEDS: Ipratropium/Albuterol Sulfate 3 ML AMPUL.NEB 9 ML INHALATION (20:51)
--- NOTE | 2024-11-28 20:52 | ED.RN ---
ATTEMPTED TO CALL REPORT TO ICU. NO NURSES AVAILABLE AT THIS TIME
[2024-11-28 20:57] LABS: D-Dimer Quantitative (DVT/PE) 2.06 FEU/ug/m (0.27-0.49)
--- NOTE | 2024-11-28 21:02 | CT_ITS ---
PROCEDURE: CTA CHEST W/WO CONTRAST REASON FOR EXAM: PE TECHNIQUE: CTA imaging of the chest with intravenous contrast. 3D reconstructions. CONTRAST: COMPARISON: CT of the chest dated December 29, 2022.. FINDINGS: Hardware: None. Lymph nodes: No mediastinal hilar or axillary lymphadenopathy. Heart: Normal heart size. No pericardial effusion. RV/LV Diameter Ratio: N/A Thoracic Aorta: No thoracic aortic aneurysm or dissection. Pulmonary Vessels: No evidence of acute pulmonary emboli through the major subsegmental branches. Most Proximal Level of Embolus (if embolus present): N/A Lungs and Airways: Patchy left basilar and lingular consolidation with air bronchograms, concerning for infiltrates. Small right basilar atelectasis. Pleura: Small bilateral pleural effusions. No evidence of pneumothorax. Chest wall: Mild skin thickening of the left breast with subcutaneous soft tissue stranding. Upper Abdomen: Visualized portions of the upper abdominal viscera are unremarkable. Bones: Fixation screws and rods transverse the lower thoracic spine. Compression fracture deformity of T11 and T12 vertebral body. CT/CTA Chest W/WO Contrast IMPRESSION: No evidence of pulmonary embolism. Patchy left basilar and lingular consolidation with air bronchograms, concernin g for infection. Small right basilar atelectasis. Small bilateral pleural effusion. Mild skin thickening of the left breast with subcutaneous soft tissue stranding , please correlate clinically for infection. Compression fracture deformity of T11 and T12 vertebral body. One or more dose reduction techniques were used (e.g., Automated exposure contr ol, adjustment of the mA and/or kV according to patient size, use of iterative reconstruction technique). Reading Location: [facility]
[2024-11-28 21:04] LABS: Anisocytosis 1+; Atypical Lymphocyte 1+ %; Polychromasia 1+; Target Cells 1+
--- NOTE | 2024-11-28 21:44 | CPS ---
Patient placed on HFNC due to increasing Oxygen needs.
[2024-11-28 21:50] LABS: Blood Gas Specimen Type VEN; O2 Delivery Device Not entered; SITE Not entered; VBG BASE EXCESS 4 mmol/L (-1.0-3.5); VBG Bicarbonate 30 mmol/L (22-26); VBG PO2 50 mmHg (25-40); VBG SO2 81 % (50-70); VBG TCO2 32 mmol/L (23-33); VBG pCO2 58.4 mmHg (41-51); VBG pH 7.32 (7.32-7.42)
[2024-11-28] MEDS: Azithromycin 500 MG in 0.9% Normal Saline (250mL Bag) 250 ML 255 MG IV (21:51)
--- NOTE | 2024-11-28 22:35 | HP.PCM.HOS_ITS ---
[facility] - General General Date of Admission: 11/28/24 Date of Service: 11/28/24 Chief Complaint: Dyspnea, cough, URI symptoms. HPI Narrative The patient is a 74-year-old female with past medical history breast cancer unclear type, obesity, alcohol abuse, chronic thrombocytopenia, anxiety and depression, tobacco use, COPD/asthma, hypertension, hyperlipidemia, chronic migraines who presents to the [facility] ED on 11/28/2024 with 1 week history of progressively worsening fatigue, malaise, dyspnea worse with exertion with decreased appetite with ongoing persistent chronic unchanged cough with no recent fevers or chills or other marked URI type symptoms but given worsening status prompted ED evaluation to be cautious. He does note she has had decreased appetite and some mild nausea with no emesis. She does have chronic issues with loose stools. She notes her left breast has always been discolored compared to her other breast but over the last 2 weeks has been more discolored with no pain or increased warmth. Workup in the ED included T98.3, heart rate 95, BP 121/76, respiratory rate 30, initially noted to be 60% on room air transition to 6 L noted to be 92% --> T98.3 Orally, heart 110, BP 121/76, respiratory rate 24, 95% on 6 L nasal cannula--> eventually requiring 15 L of high flow placed on BiPAP with most recent repeat vitals T98.1 Temporal, heart rate 101, BP 131/84, respiratory rate 20 as noted 94% on BiPAP with 25% FiO2 CBC with WBC 4.8, human 14.7, platelet 93 with increased immature granulocyte, BMP with sodium 133, chloride 92 otherwise not marked appearing, lactic acid 1.8, troponin 9, BNP 71.9, D-dimer 2.06, chest x-ray with left greater than right basilar opacities suspicious for infiltrate with small left greater than right pleural effusion, CTPA with no evidence of any pulmonary embolism, patchy left basilar and lingular consolidation with air bronchogram concerning for infection, small right basilar atelectasis, small bibasilar pleural effusions, mild skin thickening the left breast with subcutaneous tissue stranding, compression fracture deformity T11-T12 with a vertebral body of unclear chronicity, VBG with pH 7.32, pO2 50, bicarb 30. In the ED patient ministered 1 L normal saline, azithromycin 5 mg IV x 1, Rocephin 1 g IV x 1, DuoNeb therapy and Solu-Medrol 1.5 mg IV x 1. [facility] Medical History History of breast cancer Obesity Asthma Anxiety and depression Tobacco use Thrombocytopenia HLD (hyperlipidemia) Chronic neck and back pain Alcohol abuse Osteopenia Coagulation defect Popliteal aneurysm COPD (chronic obstructive pulmonary disease) History of colon polyps Hypertension Migraines Chronic bronchitis Home Medications ?Medication ?Instructions ?Recorded ?Last Taken ?Type amlodipine 5 mg tablet 5 mg PO DAILY BLOOD PRESSURE 04/27/22 12/29/22 History budesonide-formoterol HFA 80 2 puff inhalation BID [employer] D 09/26/22 12/29/22 History mcg-4.5 mcg/actuation aerosol inhaler (Symbicort) lactobacillus combination no.4 3 3,000 mmu cells PO DA [facility] [employer] [facility] 12/29/22 12/29/22 History billion cell capsule (Probiotic) multivitamin 1 tab PO DAILY [facility] [employer] 12/29/22 12/29/22 History polyethylene glycol 3350 17 17 g PO DAILY #119 grams 0 12/29/22 Unknown Rx gram/dose oral powder (Miralax) vitamin B complex 1 cap PO DAILY SUPPLEMENT 12/29/22 History aspirin 81 mg capsule 81 mg PO DAILY 11/28/24 Unkn own History atorvastatin 40 mg tablet 40 mg PO DAILY 11/28/24 Unkn own History duloxetine 20 mg capsule,delayed 20 mg PO DAILY Unknown History release potassium chloride 10 mEq 10 meq PO DAILY 11/28/24 Unk nown History tablet,extended release(part/cryst) Allergy/AdvReac Type Severity Reaction Status Date / Time No Known Allergies Allergy Verified 11/28/24 18:41 Family History Daughter Alcoholism Anxiety Sister Diabetes Mother Heart disease Hypertension CVA (cerebral vascular accident) Father Heart disease Brother Lung cancer Surgical History (Updated 11/28/24 @ 23:[address] Karen Liang MD) S/P lumpectomy, left breast S/P spinal fusion History of Social History (Updated 11/28/24 @ 23:[address] Karen Liang MD) household members: spouse Smoking Status: Heavy Smoker (>10/day) Tobacco: How many years used: 50 second hand exposure: No alcohol intake: current alcohol intake frequency: 0-2 drinks per day Alcohol type: hard liquor details: 2-3 mixed hard liquor drinks/night. notes 2 but sometimes 3. substance use type: does not use what type of physical activity do you participate in: other details: silver sneakers frequency: 3-4 times per week marielos/congregational: Congregation seatbelt use: always ROS ROS Narrative Admission Review of Systems: CONSTITUTIONAL: No weight loss, fever, chills, + weakness or fatigue. HEENT: + Congestion. Eyes: No visual loss, blurred vision, double vision or yellow sclerae. Ears, Nose, Throat: No hearing loss, sneezing, sore throat. SKIN: No rash or itching, lesions, wounds except + left breast more darkened skin and orange peel like in texture. CARDIOVASCULAR: No chest pain, chest pressure or chest discomfort, palpitations, edema, orthopnea, syncopal events. RESPIRATORY: + Dyspnea, cough with not marked sputum production, wheezing. No hemoptysis. GASTROINTESTINAL: + Anorexic/decreased appetite, nausea without emesis, chronic diarrhea unchanged. No abdominal pain, melena, BRBPR. GENITOURINARY: No dysuria, frequency, urgency or retention. NEUROLOGICAL: No headache, dizziness, syncope, paralysis, ataxia, numbness or tingling in the extremities, focal weakness, change in bowel or bladder control, seizure. MUSCULOSKELETAL: + muscle, back pain, joint pain or stiffness. HEMATOLOGIC: No anemia, bleeding or bruising. LYMPHATICS: No enlarged nodes. No history of splenectomy. PSYCHIATRIC: + History of anxiety and depression. ENDOCRINOLOGIC: No reports of sweating, cold or heat intolerance. No polyuria or polydipsia. ALLERGIES: + History of asthma, allergic rhinitis. Vital Signs Vital Signs Vital Signs: 11/28/24 18:41 11/28/24 18:41 11/28/24 18:43 Temperature 98.3 F 98.3 F Temperature Source Oral Oral Pulse Rate 95 110 H Respiratory Rate 30 H 27 H Respiratory Effort Respiratory Depth Respiratory Pattern Blood Pressure 121/76 H 121/76 H Blood Pressure Mean 91 91 Pulse Ox 60 92 60 Oxygen Delivery Method Room Air Nasal Cannula Room Air Oxygen Flow Rate (L/min) 6 Fraction of Inspired Oxygen (FIO2) 11/28/24 18:57 11/28/24 18:57 11/28/24 19:13 Temperature Temperature Source Pulse Rate Respiratory Rate 24 H Respiratory Effort Respiratory Depth Respiratory Pattern Blood Pressure Blood Pressure Mean Pulse Ox 95 95 Oxygen Delivery Method Nasal Cannula Nasal Cannula Nasal Cannula Oxygen Flow Rate (L/min) 6 6 6 Fraction of Inspired Oxygen (FIO2) 11/28/24 19:15 11/28/24 19:43 11/28/24 20:00 Temperature 98.0 F 98 F Temperature Source Oral Oral Pulse Rate 92 95 Respiratory Rate 28 H 23 H Respiratory Effort Short of Breath Labored Accessory Muscle Use Head [place] Respiratory Depth Deep Respiratory Pattern Tachypnea Blood Pressure 108/95 H 116/71 Blood Pressure Mean 99 86 Pulse Ox 95 95 Oxygen Delivery Method Nasal Cannula Nasal Cannula Nasal Cannula Oxygen Flow Rate (L/min) 6 6 6 Fraction of Inspired Oxygen (FIO2) 11/28/24 20:00 11/28/24 20:00 11/28/24 20:55 Temperature 98 F 98.1 F Temperature Source Oral Pulse Rate 95 92 86 Respiratory Rate 23 H 24 H 22 H Respiratory Effort Respiratory Depth Respiratory Pattern Blood Pressure 116/71 116/71 Blood Pressure Mean 86 86 Pulse Ox 95 92 Oxygen Delivery Method Room Air Oxygen Flow Rate (L/min) Fraction of Inspired Oxygen (FIO2) 11/28/24 20:55 11/28/24 21:00 11/28/24 21:43 Temperature 98.1 F Temperature Source Oral Pulse Rate 92 Respiratory Rate 24 H Respiratory Effort Respiratory Depth Respiratory Pattern Blood Pressure 106/50 L Blood Pressure Mean 68 Pulse Ox 92 93 92 Oxygen Delivery Method Nasal Cannula Nasal Cannula High Flow Oxygen Flow Rate (L/min) 6 6 15 Fraction of Inspired Oxygen (FIO2) 11/28/24 21:53 11/28/24 21:55 11/28/24 22:00 Temperature 98.1 F Temperature Source Temporal Pulse Rate 101 H 101 H Respiratory Rate 21 H 25 H 20 H Respiratory Effort Respiratory Depth Respiratory Pattern Tachypnea Blood Pressure 131/84 H Blood Pressure Mean 99 Pulse Ox 92 93 94 Oxygen Delivery Method High Flow Bi-pap Oxygen Flow Rate (L/min) 15 Fraction of Inspired Oxygen (FIO2) 25 Weight Weight: 166 lb 3.657 oz Body Mass Index (BMI) 31.4 Physical Exam Narrative Physical Examination: General: Awake, alert, oriented to self, place and recent events but difficult exam given BiPAP in place with some difficulty communicating because of this, remains cooperative, laying in ED bed, BiPAP in place, fatigued and ill- appearing, respiratory distress improved. Skin: Normal color, normal turgor, no icterus, no cyanosis except for occasional stage ecchymoses, abrasion, left breast with darkened appearance some of which is chronic but patient/spouse note this is more so in the texture is orange peel like. HEENT: AT/NC, EOMI, PERRLA, dry MM, BiPAP in place, difficult to discern bruits given referred sounds, difficult to discern JVD given thickened neck. Lungs: Significantly diminished, greater bases, mildly rhonchorous, occasional end expiratory wheezing, BiPAP in place, respiratory distress has improved since initial ED arrival. Heart: Mildly tachycardic with regular rhythm; no gallop, rub audible. Abdomen: Soft, obese, NTTP, ND, distant BS, no discerned HSM. Extremities: No cyanosis, no clubbing, no marked peripheral edema noted. Neurological: Patient awake, alert, oriented as noted, cognitive function suspect near baseline intact; pupils equally reactive to light and accommodation, cranial nerves grossly normal, moving all 4 extremities, no focal deficits, strength severely globally decreased. Psychiatric: Affect appears flat, fatigued, ill-appearing, respiratory distress improved currently on BiPAP, no acute evidence of depressive or anxiety feelings but does have underlying history. Results Lab / Micro Data 11/28/24 18:58 11/28/24 18:58 Labs: Laboratory Results - last 24 hr 11/28/24 18:58: WBC 4.8, RBC 4.16 L, Hgb 14.7, Hct 43.9, MCV 105.5 H, MCH 35.3 H , MCHC 33.5, RDW Std Deviation 69.1 H, RDW Coeff of Chelsie 17.9 H, Plt Count 93 L, MPV 9.9, Immature Gran % (Auto) 1.000 H, Neut % (Auto) 63.1, Lymph % (Auto) 18.7 L, [place] % (Auto) 14.5 H, Eos % (Auto) 1.5, Baso % (Auto) 1.2 H, Absolute Neuts (auto) 3.0, Absolute Lymphs (auto) 0.90, Nucleated RBC % 0.8, Atypical Lymphocytes 1+, Polychromasia 1+, Anisocytosis 1+, Target Cells 1+, D-Dimer Quant (PE/DVT) 2.06 H*, Sodium 133 L, Potassium 3.9, Chloride 92 L, Carbon Dioxide 29.0, Anion Gap 13, BUN 10, Creatinine 0.58, Estim Creat Clear Calc 56.44, Est GFR (MDRD) Af Amer 131, Est GFR (MDRD) Non-Af 109, BUN/Creatinine Ratio 17.4, Glucose 94, Lactic Acid 1.8, Calcium 8.8, Troponin I High Sens 9, B- Natriuretic Peptide 71.9 Micro: Microbiology 11/28/24 19:00 Mucosa - Nose SARS-CoV-2, Influenza & RSV (PCR) - Final ABG Data ABG results: ABG 11/28/24 21:46 Specimen Type RAMIRO Sample Site Not entered O2 % 15.0 VBG pH 7.32 VBG pO2 50 H VBG HCO3 30 H VBG Total CO2 32 VBG O2 Sat (Calc) 81 H VBG Base Excess 4 H POC Mix VBG pCO2 Pt Tmp 58.4 H O2 Delivery Device Not entered Imaging Radiology Impression Chest X-Ray 11/28/24 19:40 IMPRESSION: Pulmonary findings as above. Reading Location: [facility] Chest CTA 11/28/24 21:02 IMPRESSION: No evidence of pulmonary embolism. Patchy left basilar and lingular consolidation with air bronchograms, concerning for infection. Small right basilar atelectasis. Small bilateral pleural effusion. Mild skin thickening of the left breast with subcutaneous soft tissue stranding, please correlate clinically for infection. Compression fracture deformity of T11 and T12 vertebral body. One or more dose reduction techniques were used (e.g., Automated exposure control, adjustment of the mA and/or kV according to patient size, use of iterative reconstruction technique). Reading [facility] Assessment & Plan Assessment/Plan (1) Acute hypoxic respiratory failure: (2) COPD exacerbation: (3) Pneumonia: PLAN: Plan The patient is a 74-year-old female with past medical history breast cancer unclear type, obesity, alcohol abuse, chronic thrombocytopenia, anxiety and depression, tobacco use, COPD/asthma, hypertension, hyperlipidemia, chronic migraines who presents to the [facility] ED on 11/28/2024 with 1 week history of progressively worsening fatigue, malaise, dyspnea worse with exertion with decreased appetite with ongoing persistent chronic unchanged cough with no recent fevers or chills or other marked URI type symptoms but given worsening status prompted ED evaluation to be cautious. #1. Acute Hypoxic Respiratory Failure (oxygenation RA 60%, requiring 6L NC for appropriate saturations, increased RR/tachypnea--> BiPAP) secondary to Acute on Chronic COPD/asthma exacerbation secondary to left-sided pneumonia, community- acquired: Will admit to PCU, maintain on oxygen with wean as tolerated to room air, continue ATC duonebs, PRN albuterol, IV methylprednisolone, IV Rocephin and IV azithromycin, HOB, IS parameters, will obtain sputum Cx, respiratory viral panel, urine antigens, procalcitonin. #2. Hyponatremia, hypochloremia suspect hypovolemic component with poor oral intake recently secondary #1 but also could component secondary to #3: Admission sodium 133, chloride 92, will judiciously hydrate and repeat CMP in AM. #3. History of L sided breast cancer, unclear type with concern for Recurrent L sided Breast CA unclear type: Initial diagnosis 01/2024, s/p L sided lumpectomy and several rounds of radiation only with no chemotherapy. Per discussion was potentially following with CC Dr. Cervantes and Dr. Raymundo performed lumpectomy. ED evaluation with CTA of the chest with noted mild skin thickening of the left breast with subcutaneous soft tissue stranding with chronic discolored changes to the left breast however she notes it is more prominent over the last 2 weeks with no recent increased warmth or pain to the breast. Patient does have a history of previous breast cancer which had been in remission but concerns given this finding the patient may have recurrent breast cancer, notes having an upcoming mammogram in 2 weeks. Given these findings will need early follow-up. #4. Chronic thrombocytopenia: Admission platelets 93, similar to previous with last noted 12/29/2022 platelet 98, likely secondary to underlying alcohol abuse, continue to trend CBC #5. Hypertension: Continue home regimen including amlodipine with hold parameters as needed, PRN hydralazine. #6. Hyperlipidemia: Per current list not on regimen, defer to outpatient. #7. Chronic migraines: Per current list patient uses Endocet as needed, encourage continued outpatient follow-up and would benefit from alternate abortive agent. #8. Anxiety and depression: We will continue patient home citalopram regimen. #9. EtOH Abuse: Patient notes routine consumption of approximately 2-3 mixed hard liquor drinks per day. Given patient's age and female status encouraged appropriate decrease of alcohol intake. To be cautious will maintain on CIWA protocol, MVI, thiamine and folic acid. Case management consulted. Magnesium and phosphorus levels requested. #10. Tobacco Abuse: Encouraged cessation, inpatient consultation per RT, NR if desired. #11. Obesity: Weight loss and lifestyle changes encouraged. #12. DVT prophylaxis: Lovenox. #13. CODE status: Patient HCPLJ is her who is present and living will is currently in place. Discussed CODE status at length including difference between FULL code, DNR-CCA and DNR-CC status. Following discussions about the differences in these status, requested Full Code status. Advanced Care Planning Face to Face Time: 16 minutes. Charges/Coding Visit Charges Inpatient E&M: 86459 Init Hosp L3 Procedures Hospitalists Procedures: 00875 Advncd Care Plan 30 Min
[2024-11-28 23:26] LABS: Procalcitonin 0.11 ng/mL (0.00-0.09)
[2024-11-28 23:44] LABS: Phosphorus 3.5 mg/dL (2.5-4.9)
[2024-11-29] VITALS (25 sets, daily range): BP systolic 116–138; BP diastolic 69–90; PULSE 84–103; RESP 12–25; TEMP 36–37.1; O2SAT 87–100; BMI 32.3
[2024-11-29] MEDS: 0.9% Saline Lock 10 ML Syringe IV ×2 (05:17→22:59)
[2024-11-29 05:24] LABS: Absolute Lymphocyte Count 0.19 X10^3/uL (0.83-4.51); Absolute Neutrophil Count 2.9 X10^3/uL (2.0-7.7); Hematocrit 42.7 % (37-47); Hemoglobin 14.3 g/dL (12.0-15.0); Lymphocyte # 0.19 X10^3/ul (0.83-4.51); Lymphocyte % 6.1 % (19-41); Mean Corp Hgb Conc 33.5 g/dL (32-36); Mean Corpuscular Hgb 35.4 pg (27.0-32.0); Mean Corpuscular Volume 105.7 fL (81-99); Mean Platelet Vol. 9.5 fl (6.2-12.0); Monocyte# 0.04 X10^3/uL; Monocyte% 1.3 % (0-10); NRBC Flagged by Analyzer 0 % (0-5); Neutrophil # 2.88 X10^3/uL (2.7-7.7); Neutrophil % 91.6 % (47-70); POSITIVE COUNT YES; POSITIVE DIFFERENTIAL YES; POSITIVE MORPHOLOGY YES; Platelet Count 96 K/mm3 (150-450); RBC Distribution Width CV 17.6 % (11.6-14.6); RBC Distribution Width SD 68.2 fl (35.1-43.9); Red Blood Count 4.04 M/mm3 (4.2-5.4); White Blood Count 3.1 K/mm3 (4.4-11.0)
[2024-11-29 05:31] LABS: Differential Indicated SCAN CRITERIA MET
[2024-11-29 05:52] LABS: ALB/GLOB Ratio 0.8 RATIO (0.9-2.4); AST(SGOT) 58 U/L (15-37); Alanine Aminotransfer ALT/SGPT 43 U/L (13-56); Alkaline Phosphatase 94 U/L (45-117); Anion Gap 15 (5-15); BUN 9 mg/dL (7-18); BUN/Creat Ratio 14.6 RATIO (10-20); Calcium,Total 8.2 mg/dL (8.5-10.1); Chloride 97 mmol/L (98-107); Creatinine, Serum 0.62 mg/dL (0.55-1.02); EST Glomerular Filtration Rate 100 mL/min (>60); Est Glom Filt Rate - Afr Amer 122 mL/min (>60); Estimated Creatinine Clearance 54.96 ml/min; Glucose 97 mg/dL (74-106); Potassium 4.8 mmol/L (3.5-5.1); Sodium Level 135 mmol/L (136-145)
[2024-11-29] MEDS: Ipratropium/Albuterol Sulfate 3 ML AMPUL.NEB INHALATION (07:21)
[2024-11-29] MEDS: amLODIPine 5 MG Tablet PO (08:44)
[2024-11-29] MEDS: DULoxetine Hcl 20 MG Capsule PO (08:44)
[2024-11-29] MEDS: Aspirin 81 MG TAB.CHEW PO (08:44)
[2024-11-29] MEDS: Polyethylene Glycol 3350 17 GM PACKET PO (08:44)
[2024-11-29] MEDS: Potassium Chloride Oral Tablet 10 MEQ PO (08:44)
[2024-11-29] MEDS: Lactobacillis Acidophilus 1 CAP PO (08:44)
[2024-11-29 09:04] LABS: Anisocytosis 2+; Differential Comment SCANNED; Macrocytosis 2+; Platelet Estimate MOD DEC (ADEQ); Polychromasia 1+
--- NOTE | 2024-11-29 09:11 | ECHOD_ITS ---
Reason For Study: DYSPNEA Procedure This was a 2D Doppler, Color Flow transthoracic echocardiogram. The study was technically difficult. Exam performed portable in patient room. Left Ventricle Normal LV size. Left ventricular systolic function is normal. The left ventricular ejection fraction is 70 %. Stage 1 diastolic dysfunction. No regional wall motion abnormalities noted. Right Ventricle Normal RV size. Normal systolic function. Atria Normal left atrium. Normal right atrium. Mitral Valve Normal mitral valve. Tricuspid Valve Normal tricuspid valve. Aortic Valve Trisinus/trileaflet aortic valve. Pulmonic Valve Normal pulmonic valve. Great Vessels Normal aortic root. The pulmonary artery is normal size. Normal inferior vena cava. Pericardium/Pleural No pericardial effusion. MMode/2D Measurements & Calculations LVIDd: 4.2 cm IVSd: 1.00 cm LVOT diam: 2.0 cm LVIDs: 2.3 cm LVPWd: 1.0 cm LVOT area: 3.0 cm2 RVDd: 3.6 cm FS: 44.3 % _ asc Aorta Diam: 3.5 cm LAV(MOD-bp): 32.3 ml LVAd ap4: 15.3 cm2 LAV(MOD-bp) Indexed: 19.0 ml/m2 LVLd ap4: 6.7 cm LAV(MOD-sp2): 31.8 ml EDV(MOD- sp4): 29.1 ml LAV(MOD-sp4): 28.9 ml EDV(sp4- el): 29.9 ml LVAs ap4: 6.7 cm2 LVLs ap4: 5.0 cm ESV(MOD- sp4): 7.9 ml ESV(sp4- el): 7.6 ml EF(MOD- sp4): 72.9 % EF(sp4- el): 74.4 % _ LVAd ap2: 16.7 cm2 SV(MOD-sp4): 21.2 ml SV(MOD- sp2): 23.8 ml LVLd ap2: 6.9 cm SI(MOD-sp4): 12.5 ml/m2 SI(MOD- sp2): 14.0 ml/m2 EDV(MOD-sp2): 33.1 ml EDV(sp2-el): 34.2 ml LVAs ap2: 7.8 cm2 LVLs ap2: 5.6 cm ESV(MOD-sp2): 9.3 ml ESV(sp2-el): 9.2 ml EF(MOD-sp2): 71.9 % _ SV(sp4-el): 22.2 ml Ao sinus diam: 3.[address] Junction: 2.9 cm _ LA dimension(2D): 3.5 cm LA A4 area: 12.8 cm2 RA A4 area: 11.7 cm2 _ TAPSE: 1.7 cm Time Measurements MV dec time: 0.20 sec Doppler Measurements & Calculations MV E max darwin: 81.4 cm/sec Lat Peak E' Darwin: 13.0 cm/sec Med Peak E' Darwin: 11.1 cm/sec MV A max darwin: 111.6 cm/sec E/E' lat: 6.3 E/E' med: 7.4 MV E/A: 0.73 _ MV dec slope: 404.7 cm/sec2 Ao V2 max: 158.5 cm/sec LV V1 max: 130.4 cm/sec Ao max P.0 mmHg LV V1 max P.8 mmHg Ao V2 mean: 121.5 cm/sec LV V1 mean P.9 mmHg Ao mean P.3 mmHg LV V1 mean: 93.5 cm/sec Ao V2 VTI: 30.5 cm LV V1 VTI: 23.8 cm AV (velocity ratio): 0.78 KERI(I,D): 2.3 cm2 KERI(V,D): 2.5 cm2 _ SV(LVOT): 71.0 ml PA V2 max: 90.3 cm/sec ECHO/Echo Complete Interpretation Summary Normal LV size. Left ventricular systolic function is normal. The left ventricular ejection fraction is 70 %. Stage 1 diastolic dysfunction. Ordering Physician: Sen Rodríguez Performed By: Hollie Rodriguez RDCS
--- NOTE | 2024-11-29 09:39 | VDLE_ITS ---
Reason For Study: Elevated D-dimer RIGHT LEFT GSV is normal. GSV is normal. CFV is compressible, spontaneous, phasic, CFV is compressible, spontaneous, phasic, competent and demonstrates normal competent, and demonstrates normal augmentation. augmentation. FV is compressible, spontaneous, phasic, FV is compressible, spontaneous, phasic, competent and demonstrates normal competent and demonstrates normal augmentation. augmentation. POP V is compressible, spontaneous, phasic, POP V is compressible, spontaneous, phasic, competent and demonstrates normal competent and demonstrates normal augmentation. augmentation. T/P Trunk is compressible. T/P Trunk is compressible. PTV is compressible. PTV is compressible. RT PerV is compressible. LT PerV is compressible. Procedure This is a venous duplex using B-mode, color flow and spectral Doppler. Exam performed portable in patient room. VL/Venous Duplex US - Micheal Extrem Interpretation Summary Deep veins of the lower extremities are bilaterally patent and compressible seg mentally. There is no evidence of deep vein thrombosis on either side. Valvular competence appears in tact within the proximal deep venous systems bilaterally. The great saphenous veins appear bila terally patent and compressible segmentally. Ordering Physician: Shilpa Andrews Referring Physician: Mell López NP Performed By: Liset Lema RVT and Student
--- NOTE | 2024-11-29 09:45 | CASEMGMT ---
[facility] ROSAS Assessment Face to Face with patient for initial transition planning/care coordination assessment. RN RALPH introduced self and role at [facility], pt voices understanding. Pt is A&Ox4 and is resting comfortably in bed and is calm. Pt and son at bedside. Care providers, pharmacy, and demographics verified. Admitting dx: Acute Hypoxic RF, COPD/Asthma LACE Strata: 1 PCP: Mell López Specialists: Breanne (MARY) Preferred Pharmacy:[facility] Insurance: [employer] [facility] Prescription Benefit: Yes LNOK: William Foote (H) Living Arrangements: Pt lives with her in a single story condo with a basement with handrails. FFSU. 1 step to enter the condo. ADLs/IADLs: Pt reports that she is independent Transportation: Self, DME: [employer]. Inhaler. Grab bars. Pt reports that she has a history with [employer] but has since returned her equipment. Pt is currently requiring additional oxygen and may qualify for home oxygen use again. A verbal list of local in-network DME companies were provided to the pt at this time. Pt prefers [employer] again.? HHC/SNF: Denies Skilled HH or SNF Hx. Pt son states that the pt has been to in the past for OP Tx. ETOH/ Smoking: Pt states that she drinks 2-3 drinks per day and smokes a pack of cigarettes per day. This RN CM inquired if the pt would like resources regarding these issues. Pt adamantly declines. SW notified. Pt?s goal: Home Plan: Anticipate home with new oxygen equipment, follow for OP Tx. This RN RALPH inquired if the pt would be interested in HH or OP tx. Pt states that she has 2 dogs and that HH would not be a good idea. Pt first states that she would not like to go to OP Tx but the son states that he thinks it would be a good idea. Pt reluctant at this time. CM to follow therapy evaluations. Pt states that she wants to return home JOSE. Per PCU staff, pt was considering leaving AMA today. Report given to FLUXER RALPH and PCU SW. CM to follow. Lesli Galvan RN, CM
[2024-11-29 09:49] LABS: BNP,B-Type NATRIURETIC PEPTIDE 79.5 pg/mL (0-100)
--- NOTE | 2024-11-29 10:41 | CON.PCM.CC_ITS ---
Assessment & Plan Assessment/Plan (1) Acute hypoxic respiratory failure: (2) COPD exacerbation: PLAN: Plan RECOMMENDATIONS: 1. Continue supplemental oxygen to maintain saturations at or above 90%. 2. Continue empiric antimicrobials. 3. Check respiratory viral panel. 4. Continue scheduled bronchodilators and steroids as ordered. 5. Encourage incentive spirometer use and mobilize patient as tolerated. IMPRESSIONS: 1. Acute hypoxemic respiratory failure Most likely secondary to asthma/COPD exacerbation related to pneumonia. The patient was last seen in our pulmonary medicine office 2 years ago with a self- reported history of asthma. Her pulmonary function studies, at that time, did not demonstrate evidence of COPD. However, the patient has continued to smoke since that time. Therefore, it is certainly plausible that she may have gone on to develop obstructive lung mechanics. CTA ruled out pulmonary embolism. At this time, recommend continuing supplemental oxygen to maintain saturations at or above 90%. The patient has already been initiated on antimicrobial therapy. Scheduled bronchodilators and IV steroids will be continued. I would recommend that the patient reestablish in the pulmonary medicine office following discharge. Smoking cessation is highly advisable. 2. Chronic tobacco dependency/hypertension/hyperlipidemia/alcohol dependency/anxiety/depression Complicates care, management, recovery and prognosis. Continue CIWA protocol and continue to monitor for any signs of alcohol withdrawal. Remainder of supportive care as noted above. This note was generated with [employer] dictation software. It may contain incorrect words, spelling, and punctuation that were not noted in checking the note before signing. HPI Consult Data Date of Consult: 11/29/24 HPI Narrative Reason for Consultation: Acute hypoxemic respiratory failure HPI Narrative: The patient is a 74-year-old female, with a history as outlined below, who presented to the emergency department on November 28 with shortness of breath and cough. The patient was previously followed in the pulmonary medicine clinic in April 2023 due to a self-reported history of asthma. At that time, the patient was noted to have an approximate [id number] smoking history. The patient had outside spirometry completed through [facility] in 2021 which demonstrated no evidence of a large airways obstructive ventilatory defect. There was no significant response to aerosolized bronchodilators. Pulmonary function studies completed in March 2023 were grossly within normal limits. The patient does report that she continues to smoke approximately 1 pack of cigarettes per day. She has remained compliant with the use of Symbicort. In addition to her dyspnea, she does report an occasional productive cough. She denied a history of venous thromboembolic disease. On presentation to the emergency department, the patient was documented to be afebrile and hemodynamically stable. Laboratory evaluation revealed a normal white blood cell count. Platelet count was low at 93,000. Chemistry profile was unremarkable. Lactate was within normal limits. Troponin was normal. BNP was normal. Procalcitonin was mildly elevated at 0.11. COVID, influenza and RSV PCR's were negative. CTA chest showed no evidence for pulmonary embolism, but did demonstrate consolidation within the lingula and left lower lobe. Small bilateral pleural effusions were noted. The patient was subsequently placed on antimicrobials, bronchodilators and steroids. She was admitted to the progressive care unit for further management. [facility] Medical History History of breast cancer Obesity Asthma Anxiety and depression Tobacco use Thrombocytopenia HLD (hyperlipidemia) Chronic neck and back pain Alcohol abuse Osteopenia Coagulation defect Popliteal aneurysm COPD (chronic obstructive pulmonary disease) History of colon polyps Hypertension Migraines Chronic bronchitis Home Medications ?Medication ?Instructions ?Recorded ?Last Taken ?Type amlodipine 5 mg tablet 5 mg PO DAILY BLOOD PRESSURE 04/27/22 12/29/22 History budesonide-formoterol HFA 80 2 puff inhalation BID [employer] D 09/26/22 12/29/22 History mcg-4.5 mcg/actuation aerosol inhaler (Symbicort) lactobacillus combination no.4 3 3,000 mmu cells PO DA H-umus 12/29/22 12/29/22 History billion cell capsule (Probiotic) multivitamin 1 tab PO DAILY [facility] 12/29/22 12/29/22 History polyethylene glycol 3350 17 17 g PO DAILY #119 grams 0 12/29/22 Unknown Rx gram/dose oral powder (Miralax) vitamin B complex 1 cap PO DAILY SUPPLEMENT 12/29/22 History aspirin 81 mg capsule 81 mg PO DAILY 11/28/24 Unkn own History atorvastatin 40 mg tablet 40 mg PO DAILY 11/28/24 Unkn own History duloxetine 20 mg capsule,delayed 20 mg PO DAILY Unknown History release potassium chloride 10 mEq 10 meq PO DAILY 11/28/24 Unk nown History tablet,extended release(part/cryst) Allergy/AdvReac Type Severity Reaction Status Date / Time No Known Allergies Allergy Verified 11/28/24 18:41 Family History Daughter Alcoholism Anxiety Sister Diabetes Mother Heart disease Hypertension CVA (cerebral vascular accident) Father Heart disease Brother Lung cancer Surgical History (Updated 11/28/24 @ 23:[address] Karen Liang MD) S/P lumpectomy, left breast S/P spinal fusion History of Social History (Updated 11/28/24 @ 23:[address] Karen Liang MD) household members: spouse Smoking Status: Current every day smoker tobacco type: cigarettes Tobacco: How many years used: 50 second hand exposure: No alcohol intake: current alcohol intake frequency: 0-2 drinks per day Alcohol type: hard liquor details: occasoinally substance use type: does not use what type of physical activity do you participate in: other details: silver sneakers frequency: 3-4 times per week marielos/spiritism: Anabaptism seatbelt use: always ROS ROS Narrative 10 systems were reviewed with pertinent positives as noted in the HPI above. Physical Exam Const alert, oriented x3 and no apparent distress General Appearance: cooperative HEENT normocephalic and head/scalp atraumatic Eyes PERRL, EOMs intact bilaterally and conjunctivae normal Neck supple General: trachea midline Chest inspection of chest normal Resp normal respiratory effort Auscultation: diminished lung sounds; Negative for rales, rhonchi or wheezes Cardio regular rate and regular rhythm GI normal to inspection, nondistended, normoactive bowel sounds Extremity no clubbing, cyanosis or edema Skin no rashes or lesions noted Neuro CN's II-XII intact bilaterally, moves all extremities and no focal motor deficits Psych cooperative and affect normal Lab / Micro Data 11/29/24 05:00 11/29/24 05:00 Labs: Laboratory Results - last 24 hr 11/28/24 18:58: WBC 4.8, RBC 4.16 L, Hgb 14.7, Hct 43.9, MCV 105.5 H, MCH 35.3 H , MCHC 33.5, RDW Std Deviation 69.1 H, RDW Coeff of Chelsie 17.9 H, Plt Count 93 L, MPV 9.9, Immature Gran % (Auto) 1.000 H, Neut % (Auto) 63.1, Lymph % (Auto) 18.7 L, [place] % (Auto) 14.5 H, Eos % (Auto) 1.5, Baso % (Auto) 1.2 H, Absolute Neuts (auto) 3.0, Absolute Lymphs (auto) 0.90, Nucleated RBC % 0.8, Atypical Lymphocytes 1+, Polychromasia 1+, Anisocytosis 1+, Target Cells 1+, D-Dimer Quant (PE/DVT) 2.06 H*, Sodium 133 L, Potassium 3.9, Chloride 92 L, Carbon Dioxide 29.0, Anion Gap 13, BUN 10, Creatinine 0.58, Estim Creat Clear Calc 56.44, Est GFR (MDRD) Af Amer 131, Est GFR (MDRD) Non-Af 109, BUN/Creatinine Ratio 17.4, Glucose 94, Lactic Acid 1.8, Calcium 8.8, Phosphorus 3.5, Magnesium 2.0, Troponin I High Sens 9, B-Natriuretic Peptide 71.9, Procalcitonin 0.11 H 11/29/24 05:00: WBC 3.1 L, RBC 4.04 L, Hgb 14.3, Hct 42.7, MCV 105.7 H, MCH 35.4 H, MCHC 33.5, RDW Std Deviation 68.2 H, RDW Coeff of Chelsie 17.6 H, Plt Count 96 L, MPV 9.5, Immature Gran % (Auto) 1.000 H, Neut % (Auto) 91.6 H, Lymph % (Auto) 6.1 L, [place] % (Auto) 1.3, Eos % (Auto) 0.0, Baso % (Auto) 0.0, Absolute Neuts (auto) 2.9, Absolute Lymphs (auto) 0.19 L, Nucleated RBC % 0, Differential Comment SCANNED, Platelet Estimate MOD DEC, Polychromasia 1+, Anisocytosis 2+, Macrocytosis 2+, Sodium 135 L, Potassium 4.8, Chloride 97 L, Carbon Dioxide 22.0, Anion Gap 15, BUN 9, Creatinine 0.62, Estim Creat Clear Calc 54.96, Est GFR (MDRD) Af Amer 122, Est GFR (MDRD) Non-Af 100, BUN/Creatinine Ratio 14.6, Glucose 97, Calcium 8.2 L, Total Bilirubin 0.50, AST 58 H, ALT 43, Alkaline Phosphatase 94, B-Natriuretic Peptide 79.5, Total Protein 7.0, Albumin 3.0 L, Globulin 4.0, Albumin/Globulin Ratio 0.8 L Micro: Microbiology 11/28/24 19:00 Mucosa - Nose SARS-CoV-2, Influenza & RSV (PCR) - Final ABG Data ABG results: ABG 11/28/24 21:46 Specimen Type RAMIRO Sample Site Not entered O2 % 15.0 VBG pH 7.32 VBG pO2 50 H VBG HCO3 30 H VBG Total CO2 32 VBG O2 Sat (Calc) 81 H VBG Base Excess 4 H POC Mix VBG pCO2 Pt Tmp 58.4 H O2 Delivery Device Not entered Imaging Radiology Impression Chest X-Ray 11/28/24 19:40 IMPRESSION: Pulmonary findings as above. Reading Location: [facility] Chest CTA 11/28/24 21:02 IMPRESSION: No evidence of pulmonary embolism. Patchy left basilar and lingular consolidation with air bronchograms, concerning for infection. Small right basilar atelectasis. Small bilateral pleural effusion. Mild skin thickening of the left breast with subcutaneous soft tissue stranding, please correlate clinically for infection. Compression fracture deformity of T11 and T12 vertebral body. One or more dose reduction techniques were used (e.g., Automated exposure control, adjustment of the mA and/or kV according to patient size, use of iterative reconstruction technique). Reading Location: [facility] Charges/Coding Visit Charges Inpatient E&M: 07620 Init Hosp L3
[2024-11-29] MEDS: Enoxaparin 40 MG/0.4 ML Syringe SC (12:16)
--- NOTE | 2024-11-29 14:50 | PN_ITS ---
Subjective Subjective Patient seen and examined this morning. She had just been weaned off of BiPAP and was on 8 L of oxygen. She felt her shortness of breath had improved. She is coughing and is productive of some scant sputum. She denied any fever or chills. Review of systems otherwise negative. She is otherwise hemodynamically stable. Patient was asking about discharge today but was told that it is unlikely she will be discharged today as she was on 8 L of oxygen at time of review in the morning. Objective Data Objective Data Vital Signs: Vital Signs Temp Pulse Resp BP Pulse Ox O2 Del Method O2 Flow Rate 98.2 F 98 24 H 116/80 100 High Flow 3 11/29/24 12:00 11/29/24 12:00 11/29/24 12:00 11/29/24 12:00 11/29/24 12:11 11/29/24 12:11 11/29/24 12:11 FiO2 40 11/29/24 03:23 Oxygen Flow Rate (L/min) 3 Oxygen Delivery Method High Flow Weight: 165 lb 5.547 oz Body Mass Index (BMI) 32.3 Intake & Output: Intake and Output for Last 24 Hours 11/27/24 11/28/24 11/29/24 23:59 23:59 23:59 Intake Total 1305 / 1305 800 / 800 Output Total 1000 / 1000 450 / 450 Balance 305 / 305 350 / 350 Lab / Micro Data 11/29/24 05:00 11/29/24 05:00 Labs: Laboratory Results - last 24 hr 11/28/24 18:58: WBC 4.8, RBC 4.16 L, Hgb 14.7, Hct 43.9, MCV 105.5 H, MCH 35.3 H , MCHC 33.5, RDW Std Deviation 69.1 H, RDW Coeff of Chelsie 17.9 H, Plt Count 93 L, MPV 9.9, Immature Gran % (Auto) 1.000 H, Neut % (Auto) 63.1, Lymph % (Auto) 18.7 L, [place] % (Auto) 14.5 H, Eos % (Auto) 1.5, Baso % (Auto) 1.2 H, Absolute Neuts (auto) 3.0, Absolute Lymphs (auto) 0.90, Nucleated RBC % 0.8, Atypical Lymphocytes 1+, Polychromasia 1+, Anisocytosis 1+, Target Cells 1+, D-Dimer Quant (PE/DVT) 2.06 H*, Sodium 133 L, Potassium 3.9, Chloride 92 L, Carbon Dioxide 29.0, Anion Gap 13, BUN 10, Creatinine 0.58, Estim Creat Clear Calc 56.44, Est GFR (MDRD) Af Amer 131, Est GFR (MDRD) Non-Af 109, BUN/Creatinine Ratio 17.4, Glucose 94, Lactic Acid 1.8, Calcium 8.8, Phosphorus 3.5, Magnesium 2.0, Troponin I High Sens 9, B-Natriuretic Peptide 71.9, Procalcitonin 0.11 H 11/29/24 05:00: WBC 3.1 L, RBC 4.04 L, Hgb 14.3, Hct 42.7, MCV 105.7 H, MCH 35.4 H, MCHC 33.5, RDW Std Deviation 68.2 H, RDW Coeff of Chelsie 17.6 H, Plt Count 96 L, MPV 9.5, Immature Gran % (Auto) 1.000 H, Neut % (Auto) 91.6 H, Lymph % (Auto) 6.1 L, [place] % (Auto) 1.3, Eos % (Auto) 0.0, Baso % (Auto) 0.0, Absolute Neuts (auto) 2.9, Absolute Lymphs (auto) 0.19 L, Nucleated RBC % 0, Differential Comment SCANNED, Platelet Estimate MOD DEC, Polychromasia 1+, Anisocytosis 2+, Macrocytosis 2+, Sodium 135 L, Potassium 4.8, Chloride 97 L, Carbon Dioxide 22.0, Anion Gap 15, BUN 9, Creatinine 0.62, Estim Creat Clear Calc 54.96, Est GFR (MDRD) Af Amer 122, Est GFR (MDRD) Non-Af 100, BUN/Creatinine Ratio 14.6, Glucose 97, Calcium 8.2 L, Total Bilirubin 0.50, AST 58 H, ALT 43, Alkaline Phosphatase 94, B-Natriuretic Peptide 79.5, Total Protein 7.0, Albumin 3.0 L, Globulin 4.0, Albumin/Globulin Ratio 0.8 L Micro: Microbiology 11/28/24 21:08 Sputum, Expectorated/Coughed Respiratory Culture - Preliminary Appears to be normal respiratory abdoulaye. Further studies to follow. 11/28/24 19:00 Mucosa - Nose SARS-CoV-2, Influenza & RSV (PCR) - Final ABG Data ABG results: ABG 11/28/24 21:46 Specimen Type RAMIRO Sample Site Not entered O2 % 15.0 VBG pH 7.32 VBG pO2 50 H VBG HCO3 30 H VBG Total CO2 32 VBG O2 Sat (Calc) 81 H VBG Base Excess 4 H POC Mix VBG pCO2 Pt Tmp 58.4 H O2 Delivery Device Not entered Radiography Diagnostic Testing: Radiology Impression Chest X-Ray 11/28/24 19:40 IMPRESSION: Pulmonary findings as above. Reading Location: [facility] Chest CTA 11/28/24 21:02 IMPRESSION: No evidence of pulmonary embolism. Patchy left basilar and lingular consolidation with air bronchograms, concerning for infection. Small right basilar atelectasis. Small bilateral pleural effusion. Mild skin thickening of the left breast with subcutaneous soft tissue stranding, please correlate clinically for infection. Compression fracture deformity of T11 and T12 vertebral body. One or more dose reduction techniques were used (e.g., Automated exposure control, adjustment of the mA and/or kV according to patient size, use of iterative reconstruction technique). Reading [facility] Physical Exam Const alert, oriented x3 and no apparent distress Constitutional Narrative: class 1 obesity General Appearance: cooperative HEENT normocephalic, head/scalp atraumatic, moist oral mucous membranes and oropharynx normal Eyes PERRL and EOMs intact bilaterally Neck no lymphadenopathy and supple Lymph Lymphatic: no lymphadenopathy noted Resp Resp Narrative: diminished breath sounds bibasally, bilateral crackles. On 8L of oxygen at time of review this morning, though she came down to 3L. Cardio regular rate, regular rhythm, S1 normal heart sound, S2 normal heart sound and no murmurs GI normal to inspection, nondistended, normoactive bowel sounds, soft to palpation, non-tender and non-distended Extremity normal capillary refill, no clubbing, cyanosis or edema and no calf tenderness General Extremity: no tenderness to palpation of joints or extremities Skin General Skin Exam: no breakdown Neuro CN's II-XII intact bilaterally, no focal motor deficits and no sensory deficits noted Motor Exam: general weakness Psych thought process normal Appearance: appropriate Assessment & Plan Assessment/Plan (1) COPD exacerbation: (2) Pneumonia: (3) Acute hypoxic respiratory failure: PLAN: Plan #Acute hypoxic respiratory failure due to the left lower lobe pneumonia and acute on chronic COPD exacerbation * Was on BiPAP overnight but weaned down to 8 L of oxygen this morning subsequently down to 3 L. * On IV Solu-Medrol, IV ceftriaxone and azithromycin. Sputum cultures pending. Breathing treatments bronchodilators. Titrate oxygen to maintain saturation above 90%. * Urine for strep and Legionella antigens negative. * #Hyponatremia: Improving. Sodium is 135 today. Will monitor. # History of left breast cancer with concern for recurrence * Was initially diagnosed in January 2024 and had a left-sided lumpectomy and radiation but no chemotherapy. * CT of the chest on admission this time showed mild thickening of the left breast with subcutaneous soft tissue stranding with chronic discolored changes of the left breast. Patient thinks has become more prominent over the last 2 weeks. * Will benefit from follow-up with her surgeons and oncologist. She is due to have mammogram in 2 weeks. * #Chronic thrombocytopenia: Platelets were 93 on admission and now 96. Likely due to chronic alcohol abuse. Will monitor. #Elevated D-dimer: D-dimer was 2.[address] of the chest showed no evidence of PE. #Hypertension: Amlodipine. IV hydralazine as needed #History of migraines: On Endocet. #Anxiety depression: On citalopram and duloxetine #History of alcohol use disorder: * Drinks about 2-3 hard liquor drinks daily. * On CIWA protocol. Continue any active withdrawal. * On thiamine, folic acid and Multi-Melvin. #Nicotine dependence: Counseled to quit. Nicotine patch as needed #Class I obesity: Complicates acute care, expected recovery and prognosis. DVT prophylaxis: Lovenox Charges/Coding Visit Charges Inpatient E&M: 47829 Subs Hosp L2
[2024-11-29] MEDS: Ceftriaxone 2 GM in 0.9% Normal Saline (50mL MB+) 50 ML IV (21:23)
[2024-11-29] MEDS: Atorvastatin Calcium 40 MG Tablet PO (21:23)
[2024-11-29] MEDS: Azithromycin 500 MG in 0.9% Normal Saline (250mL Bag) 250 ML 255 MG IV (22:59)
[2024-11-30] VITALS (12 sets, daily range): BP systolic 112–130; BP diastolic 68–80; PULSE 73–95; RESP 12–20; TEMP 36.4–37.1; O2SAT 93–100; BMI 33.0
[2024-11-30] MEDS: 0.9% Saline Lock 10 ML Syringe IV ×2 (05:30→21:04)
[2024-11-30] MEDS: Ipratropium/Albuterol Sulfate 3 ML AMPUL.NEB INHALATION ×3 (07:01→14:36)
[2024-11-30 07:17] LABS: Absolute Lymphocyte Count 0.31 X10^3/uL (0.83-4.51); Absolute Neutrophil Count 9.1 X10^3/uL (2.0-7.7); Basophil# 0.01 X10^3/uL; Basophil% 0.1 % (0-1); Hematocrit 42.9 % (37-47); Hemoglobin 14.7 g/dL (12.0-15.0); Lymphocyte # 0.31 X10^3/ul (0.83-4.51); Lymphocyte % 3.1 % (19-41); Mean Corp Hgb Conc 34.3 g/dL (32-36); Mean Corpuscular Volume 105.1 fL (81-99); Mean Platelet Vol. 9.8 fl (6.2-12.0); Monocyte# 0.53 X10^3/uL; Monocyte% 5.3 % (0-10); NRBC Flagged by Analyzer 0.3 % (0-5); Neutrophil # 9.08 X10^3/uL (2.7-7.7); Neutrophil % 90.7 % (47-70); POSITIVE DIFFERENTIAL YES; POSITIVE MORPHOLOGY YES; Platelet Count 114 K/mm3 (150-450); RBC Distribution Width CV 17.9 % (11.6-14.6); RBC Distribution Width SD 68.8 fl (35.1-43.9); Red Blood Count 4.08 M/mm3 (4.2-5.4)
[2024-11-30 07:20] LABS: Differential Indicated SCAN CRITERIA MET
[2024-11-30 07:35] LABS: Anion Gap 6 (5-15); BUN 10 mg/dL (7-18); BUN/Creat Ratio 17.6 RATIO (10-20); Calcium,Total 8.8 mg/dL (8.5-10.1); Chloride 97 mmol/L (98-107); Creatinine, Serum 0.57 mg/dL (0.55-1.02); EST Glomerular Filtration Rate 110 mL/min (>60); Est Glom Filt Rate - Afr Amer 133 mL/min (>60); Estimated Creatinine Clearance 55.65 ml/min; Glucose 154 mg/dL (74-106); Sodium Level 137 mmol/L (136-145)
[2024-11-30] MEDS: Aspirin 81 MG TAB.CHEW PO (08:43)
[2024-11-30] MEDS: Enoxaparin 40 MG/0.4 ML Syringe SC (10:10)
[2024-11-30] MEDS: Lactobacillis Acidophilus 1 CAP PO (10:11)
[2024-11-30] MEDS: amLODIPine 5 MG Tablet PO (10:11)
[2024-11-30] MEDS: Potassium Chloride Oral Tablet 10 MEQ PO (10:12)
[2024-11-30] MEDS: DULoxetine Hcl 20 MG Capsule PO (10:12)
[2024-11-30 11:05] LABS: Anisocytosis 2+; Differential Comment SCANNED; Platelet Estimate SLT DEC (ADEQ)
--- NOTE | 2024-11-30 12:23 | PN_ITS ---
Subjective Subjective Patient seen and examined. She complained of diarrhea overnight. She is still short of breath and is on 8 L of oxygen at time of review. She is asking to go home today. Review of systems otherwise negative. Objective Data Objective Data Vital Signs: Vital Signs Temp Pulse Resp BP Pulse Ox O2 Del Method O2 Flow Rate 98.8 F 95 18 126/80 H 93 Nasal Cannula 5 11/30/24 09:13 11/30/24 10:44 11/30/24 10:44 11/30/24 09:13 11/30/24 10:44 11/30/24 10:44 11/30/24 10:44 FiO2 45 11/30/24 03:30 Oxygen Flow Rate (L/min) 5 Oxygen Delivery Method Nasal Cannula Weight: 169 lb 5.04 oz Body Mass Index (BMI) 33.0 Intake & Output: Intake and Output for Last 24 Hours 11/28/24 11/29/24 11/30/24 23:59 23:59 23:59 Intake Total 1305 / 1305 1505 / 1505 Output Total 1000 / 1000 450 / 750 300 / 300 Balance 305 / 305 1055 / 755 -300 / -300 Lab / Micro Data 11/30/24 06:25 11/30/24 06:25 Labs: Laboratory Results - last 24 hr 11/30/24 06:25: WBC 10.0, RBC 4.08 L, Hgb 14.7, Hct 42.9, MCV 105.1 H, MCH 36.0 H, MCHC 34.3, RDW Std Deviation 68.8 H, RDW Coeff of Chelsie 17.9 H, Plt Count 114 L , MPV 9.8, Immature Gran % (Auto) 0.800, Neut % (Auto) 90.7 H, Lymph % (Auto) 3.1 L, [place] % (Auto) 5.3, Eos % (Auto) 0.0, Baso % (Auto) 0.1, Absolute Neuts (auto) 9.1 H, Absolute Lymphs (auto) 0.31 L, Nucleated RBC % 0.3, Differential Comment SCANNED, Platelet Estimate SLT DEC, Anisocytosis 2+, Sodium 137, Potassium 4.0, Chloride 97 L, Carbon Dioxide 34.0 H, Anion Gap 6, BUN 10, Creatinine 0.57, Estim Creat Clear Calc 55.65, Est GFR (MDRD) Af Amer 133, Est GFR (MDRD) Non-Af 110, BUN/Creatinine Ratio 17.6, Glucose 154 H, Calcium 8.8 Micro: Microbiology 11/30/24 06:00 Sputum, Expectorated/Coughed Gram Stain - Final 11/28/24 21:08 Sputum, Expectorated/Coughed Gram Stain - Final 11/28/24 21:08 Sputum, Expectorated/Coughed Respiratory Culture - Preliminary Appears to be normal respiratory abdoulaye. Further studies to follow. 11/29/24 12:20 Mucosa - Nose Respiratory Panel (PCR) - Final 11/28/24 19:00 Mucosa - Nose SARS-CoV-2, Influenza & RSV (PCR) - Final Radiography Diagnostic Testing: Radiology Impression Echocardiogram 11/29/24 09:11 Interpretation Summary Normal LV size. Left ventricular systolic function is normal. The left ventricular ejection fraction is 70 %. Stage 1 diastolic dysfunction. Ordering Physician: Sen Rodríguez Performed By: Hollie Rodriguez RDCS Venous Doppler Study 11/29/24 09:39 Interpretation Summary Deep veins of the lower extremities are bilaterally patent and compressible segmentally. There is no evidence of deep vein thrombosis on either side. Valvular competence appears intact within the proximal deep venous systems bilaterally. The great saphenous veins appear bilaterally patent and compressible segmentally. Ordering Physician: Shilpa Andrews Referring Physician: Mell López NP Performed By: Liset Lema RVT and Student Physical Exam Const alert, oriented x3 and no apparent distress Constitutional Narrative: class 1 obesity General Appearance: cooperative and well developed HEENT normocephalic, head/scalp atraumatic, moist oral mucous membranes and oropharynx normal Eyes PERRL and EOMs intact bilaterally Neck no lymphadenopathy and supple Lymph Lymphatic: no lymphadenopathy noted Resp Resp Narrative: diminished breath sounds bibasally, bilateral crackles. On 8L of oxygen at time of review, but she came down to 5L subsequently. Cardio regular rate, regular rhythm, S1 normal heart sound, S2 normal heart sound and no murmurs GI normal to inspection, nondistended, normoactive bowel sounds, soft to palpation, non-tender and non-distended Extremity normal capillary refill, no clubbing, cyanosis or edema and no calf tenderness General Extremity: no tenderness to palpation of joints or extremities Skin General Skin Exam: no breakdown Neuro CN's II-XII intact bilaterally, no focal motor deficits and no sensory deficits noted Motor Exam: general weakness Psych thought process normal Appearance: appropriate Assessment & Plan Assessment/Plan (1) COPD exacerbation: (2) Pneumonia: (3) Acute hypoxic respiratory failure: PLAN: Plan #Acute hypoxic respiratory failure due to the left lower lobe pneumonia and acute on chronic COPD exacerbation * was on 8L of oxygen this morning but now down to 5L. * On IV Solu-Medrol, IV ceftriaxone and azithromycin. Sputum cultures pending. Breathing treatments bronchodilators. Titrate oxygen to maintain saturation above 90%. * Respiratory panel negative and sputum Gram stain negative. Respiratory cultures pending. * #Hyponatremia: Improving. Sodium is 135 today. Will monitor. # History of left breast cancer with concern for recurrence * Was initially diagnosed in January 2024 and had a left-sided lumpectomy and radiation but no chemotherapy. * CT of the chest on admission this time showed mild thickening of the left breast with subcutaneous soft tissue stranding with chronic discolored changes of the left breast. Patient thinks has become more prominent over the last 2 weeks. * Will benefit from follow-up with her surgeons and oncologist. She is due to have mammogram in 2 weeks. * #Chronic thrombocytopenia: Platelets were 93 on admission and now 96. Likely due to chronic alcohol abuse. Will monitor. #Elevated D-dimer: D-dimer was 2.[address] of the chest showed no evidence of PE. #Hypertension: Amlodipine. IV hydralazine as needed #History of migraines: On Endocet. #Anxiety depression: On citalopram and duloxetine #History of alcohol use disorder: * Drinks about 2-3 hard liquor drinks daily. * On CIWA protocol. Continue any active withdrawal. * On thiamine, folic acid and Multi-Melvin. #Nicotine dependence: Counseled to quit. Nicotine patch as needed #Class I obesity: Complicates acute care, expected recovery and prognosis. DVT prophylaxis: Lovenox Disposition: for dc home once she is medically stable, likely over the next 24- 48 hours. Charges/Coding Visit Charges Inpatient E&M: 86547 Subs Hosp L2
--- NOTE | 2024-11-30 13:32 | PN.CC_ITS ---
Objective Data Objective Data Vital Signs: Vital Signs Last response 3 Temperature 37.1 C 11/30/24 09:13 Temperature Source Oral 11/30/24 09:13 Pulse Rate 95 11/30/24 10:44 Respiratory Rate 18 11/30/24 10:44 Respiratory Effort Short of Breath 11/30/24 10:00 Respiratory Depth Shallow 11/30/24 10:00 Respiratory Pattern Normal 11/30/24 10:44 Blood Pressure 126/80 H 11/30/24 09:13 Blood Pressure Mean 95 11/30/24 09:13 Blood Pressure Source Monitor 11/30/24 09:13 Blood Pressure Position Sitting 11/30/24 09:13 Blood Pressure Location Right Arm 11/30/24 09:13 Pulse Ox 93 11/30/24 10:44 Oxygen Delivery Method Nasal Cannula 11/30/24 10:44 Oxygen Flow Rate (L/min) 5 11/30/24 10:44 Fraction of Inspired Oxygen (FIO2) 45 11/30/24 03:30 I&O: I&O Last 24 Hours 3 11/29/24 11/30/24 11/30/24 23:59 11:59 23:59 Intake Total 1505 / 1505 Output Total 400 / 750 300 / 300 Balance 1105 / 755 -300 / -300 I&O: Total Stay 3 11/28/24 18:40 thru 11/30/24 06:00 Intake Total 2810 Output Total 1750 Balance 1060 Current Meds Ordered / Administered: Current meds ordered / Administered 3 Generic Name Dose Route Start Last Admin Trade Name Freq PRN Reason Stop Dose Admin Acetaminophen 650 mg 11/28/24 23:27 Acetaminophen 325 Mg Tablet PO Q4H PRN PRN Fever, pain 1-10 Al Hydroxide/Mg Hydroxide 30 ml 11/28/24 23:27 Mag Hydrox/Al Hydrox/Simeth 30 Ml Udc PO Q6H PRN PRN Gastric Burning Albuterol Sulfate 2.5 mg 11/28/24 23:27 Albuterol 2.5 Mg/3 Ml Vial.Neb. INHALATION Q2H PRN PRN Dyspnea, wheezing Albuterol/Ipratropium 3 ml 11/28/24 23:27 11/30/24 10:42 Ipratropium/Albuterol Sulfate 3 Ml Ampul.Neb INHALATION 3 ml Q4HWA.RT JOAQUIM Administration Amlodipine Besylate 5 mg 11/29/24 10:00 11/30/24 10:11 Amlodipine 5 Mg Tablet PO 5 mg DAILY JOAQUIM Administration Protocol Aspirin 81 mg 11/29/24 08:00 11/30/24 08:43 Aspirin 81 Mg Tab.Chew PO 81 mg BREAKFAST JOAQUIM Administration Atorvastatin Calcium 40 mg 11/29/24 22:00 11/29/24 21:23 Atorvastatin Calcium 40 Mg Tablet PO 40 mg QHS JOAQUIM Administration Duloxetine HCl 20 mg 11/29/24 10:00 11/30/24 10:12 Duloxetine Hcl 20 Mg Capsule PO 20 mg DAILY JOAQUIM Administration Enoxaparin Sodium 40 mg 11/29/24 10:00 11/30/24 10:10 Enoxaparin 40 Mg/0.4 Ml Syringe SC 40 mg DAILY JOAQUIM Administration Guaifenesin 20 ml 11/28/24 23:27 Guaifenesin 10 Ml Udc (200mg/10ml) PO Q4H PRN PRN COUGH Hydralazine HCl 10 mg 11/28/24 23:27 Hydralazine 20 Mg/Ml Vial IV Q4H PRN PRN SBP > 160 Protocol Azithromycin 500 mg/ Sodium 255 mls @ 255 mls/hr 11/29/24 22:00 11/29/24 23:59 Chloride IV Infused Q24H JOAQUIM Infusion Ceftriaxone Sodium 2 gm/ 50 mls @ 100 mls/hr 11/29/24 22:00 11/29/24 22:00 Sodium Chloride IV Infused Q24H JOAQUIM Infusion Sodium Chloride 100 mls @ 15 mls/hr 11/28/24 23:36 IV .Q6H40M PRN Saline Flush Sodium Chloride 100 mls @ 15 mls/hr 11/28/24 23:36 IV .Q6H40M PRN Additional IVPB Infusion Lorazepam 2 mg 11/28/24 23:27 Lorazepam 2 Mg/Ml Syringe IV UD PRN CIWA score >/=15. Protocol Lorazepam 2 mg 11/28/24 23:27 Lorazepam 2 Mg/Ml Syringe IV Q2H PRN PRN CIWA score > 8 but <15 Protocol Lorazepam 2 mg 11/28/24 23:27 Lorazepam 1 Mg Tablet PO UD PRN CIWA score >/=15. Protocol Lorazepam 2 mg 11/28/24 23:27 Lorazepam 1 Mg Tablet PO Q2H PRN PRN CIWA score > 8 but <15 Protocol Melatonin 3 mg 11/28/24 23:27 Melatonin 3 Mg Tablet PO QHS PRN PRN INSOMNIA Methylprednisolone 40 mg 11/29/24 06:00 11/30/24 05:30 Methylprednisolone 40 Mg/Ml Vial IV 40 mg Q8 JOAQUIM Administration Nicotine 21 mg 11/28/24 23:27 11/30/24 10:11 Nicotine 21 Mg Patch TD 21 mg DAILY JOAQUIM Administration Ondansetron HCl 4 mg 11/28/24 23:27 Ondansetron 4 Mg/2 Ml Vial IV Q8H PRN PRN NAUSEA/VOMITING Polyethylene Glycol 17 gm 11/29/24 10:00 11/29/24 08:44 Polyethylene Glycol 3350 17 Gm Packet PO 17 gm DAILY JOAQUIM Administration Potassium Chloride 10 meq 11/29/24 10:00 11/30/24 10:12 Potassium Chloride Oral Tablet 10 Meq PO 10 meq DAILY JOAQUIM Administration Prochlorperazine Edisylate 5 mg 11/28/24 23:27 Prochlorperazine 10 Mg/2 Ml Vial IV Q4H PRN PRN Breakthrough Nausea/Vomiting Senna/Docusate Sodium 2 tablet 11/28/24 23:27 Senna/Docusate Sodium 1 Tablet PO BID PRN PRN Constipation Sodium Chloride 10 - 40 ml 11/28/24 23:36 11/30/24 05:30 0.9% Saline Lock 10 Ml Syringe IV 10 ml UD PRN Administration SALINE FLUSH Throat Lozenges 1 lozenge 11/28/24 23:27 Benzocaine/Menthol 1 Lozenge MUCOUS MEM Q2H PRN PRN SORE THROAT Lab / Micro Data Attestation: I reviewed the patient's lab results. 11/30/24 06:25 11/30/24 06:25 Labs: Laboratory Results - last 24 hr 11/30/24 06:25: WBC 10.0, RBC 4.08 L, Hgb 14.7, Hct 42.9, MCV 105.1 H, MCH 36.0 H, MCHC 34.3, RDW Std Deviation 68.8 H, RDW Coeff of Chelsie 17.9 H, Plt Count 114 L , MPV 9.8, Immature Gran % (Auto) 0.800, Neut % (Auto) 90.7 H, Lymph % (Auto) 3.1 L, [place] % (Auto) 5.3, Eos % (Auto) 0.0, Baso % (Auto) 0.1, Absolute Neuts (auto) 9.1 H, Absolute Lymphs (auto) 0.31 L, Nucleated RBC % 0.3, Differential Comment SCANNED, Platelet Estimate SLT DEC, Anisocytosis 2+, Sodium 137, Potassium 4.0, Chloride 97 L, Carbon Dioxide 34.0 H, Anion Gap 6, BUN 10, Creatinine 0.57, Estim Creat Clear Calc 55.65, Est GFR (MDRD) Af Amer 133, Est GFR (MDRD) Non-Af 110, BUN/Creatinine Ratio 17.6, Glucose 154 H, Calcium 8.8 Micro: Microbiology 11/30/24 06:00 Sputum, Expectorated/Coughed Gram Stain - Final 11/28/24 21:08 Sputum, Expectorated/Coughed Gram Stain - Final 11/28/24 21:08 Sputum, Expectorated/Coughed Respiratory Culture - Preliminary Appears to be normal respiratory abdoulaye. Further studies to follow. 11/29/24 12:20 Mucosa - Nose Respiratory Panel (PCR) - Final Imaging Radiology Impression Echocardiogram 11/29/24 09:11 Interpretation Summary Normal LV size. Left ventricular systolic function is normal. The left ventricular ejection fraction is 70 %. Stage 1 diastolic dysfunction. Ordering Physician: Sen Rodríguez Performed By: Hollie Rodriguez RDCS Venous Doppler Study 11/29/24 09:39 Interpretation Summary Deep veins of the lower extremities are bilaterally patent and compressible segmentally. There is no evidence of deep vein thrombosis on either side. Valvular competence appears intact within the proximal deep venous systems bilaterally. The great saphenous veins appear bilaterally patent and compressible segmentally. Ordering Physician: Shilpa Andrews Referring Physician: Mell López NP Performed By: Liset Lema RVT and Student Assessment and Plan . Assessment and plan: IMPRESSIONS: 1. Acute hypoxemic respiratory failure Pneumonia plus ?suspected asthma-COPD overlap but per Dr. Rodríguez no airflow obstruction on previous PFTs. On 6L/min still and desaturates easily with so will recheck CXR 2. Chronic tobacco dependency/hypertension/hyperlipidemia/alcohol dependency/anxiety/depression Complicates care, management, recovery and prognosis. Continue CIWA protocol and continue to monitor for any signs of alcohol withdrawal. Remainder of supportive care as noted above RECOMMENDATIONS: 1. Continue supplemental oxygen to maintain saturations at or above 90%. 2. Continue empiric antimicrobials. 3. Check respiratory viral panel. 4. Continue scheduled bronchodilators and steroids as ordered. 5. Encourage incentive spirometer use and mobilize patient as tolerated. Critical Care Time: 50 minutes The entirety of this encounter was done via Telemedicine Physical Exam Const alert and no apparent distress General Appearance: ill appearing Neck full ROM Resp normal respiratory effort Subjective Subjective States she is about the same, gets OOB and coughs a lot. Requires 6L/min. Staff note profound desaturation when ambulating.
[2024-11-30] MEDS: Azithromycin 500 MG in 0.9% Normal Saline (250mL Bag) 250 ML 255 MG IV (21:04)
[2024-11-30] MEDS: Atorvastatin Calcium 40 MG Tablet PO (21:04)
[2024-11-30] MEDS: MELATONIN 3 MG TABLET PO (21:13)
[2024-11-30] MEDS: Ceftriaxone 2 GM in 0.9% Normal Saline (50mL MB+) 50 ML IV (22:17)
[2024-12-01] VITALS (11 sets, daily range): BP systolic 113–137; BP diastolic 65–86; PULSE 71–131; RESP 17–20; TEMP 36.5–37; O2SAT 92–100; BMI 32.9
[2024-12-01 05:08] LABS: Absolute Neutrophil Count 8.7 X10^3/uL (2.0-7.7); Hematocrit 40.9 % (37-47); Hemoglobin 13.5 g/dL (12.0-15.0); Lymphocyte % 2.1 % (19-41); Mean Corpuscular Hgb 34.7 pg (27.0-32.0); Mean Corpuscular Volume 105.1 fL (81-99); Mean Platelet Vol. 10.2 fl (6.2-12.0); Monocyte# 0.41 X10^3/uL; Monocyte% 4.4 % (0-10); NRBC Flagged by Analyzer 0 % (0-5); Neutrophil # 8.69 X10^3/uL (2.7-7.7); Neutrophil % 92.9 % (47-70); POSITIVE DIFFERENTIAL YES; POSITIVE MORPHOLOGY YES; Platelet Count 118 K/mm3 (150-450); RBC Distribution Width CV 17.8 % (11.6-14.6); RBC Distribution Width SD 68.7 fl (35.1-43.9); Red Blood Count 3.89 M/mm3 (4.2-5.4); White Blood Count 9.4 K/mm3 (4.4-11.0)
[2024-12-01 05:10] LABS: Differential Indicated SCAN CRITERIA MET
[2024-12-01 05:16] LABS: Anion Gap 7 (5-15); BUN 10 mg/dL (7-18); BUN/Creat Ratio 21.4 RATIO (10-20); Calcium,Total 8.2 mg/dL (8.5-10.1); Chloride 98 mmol/L (98-107); Creatinine, Serum 0.47 mg/dL (0.55-1.02); EST Glomerular Filtration Rate 138 mL/min (>60); Est Glom Filt Rate - Afr Amer 167 mL/min (>60); Estimated Creatinine Clearance 55.54 ml/min; Glucose 161 mg/dL (74-106); Sodium Level 138 mmol/L (136-145)
[2024-12-01] MEDS: 0.9% Saline Lock 10 ML Syringe IV ×3 (05:23→20:07)
[2024-12-01 06:50] LABS: Anisocytosis 1+; Differential Comment SCANNED
[2024-12-01 06:52] LABS: Macrocytosis 1+; Microcytosis RARE
[2024-12-01] MEDS: Potassium Chloride Oral Tablet 10 MEQ PO (09:31)
[2024-12-01] MEDS: amLODIPine 5 MG Tablet PO (09:31)
[2024-12-01] MEDS: Lactobacillis Acidophilus 1 CAP PO (09:31)
[2024-12-01] MEDS: Potassium Chloride Oral Tablet 20 MEQ 60 MEQ PO (09:31)
[2024-12-01] MEDS: DULoxetine Hcl 20 MG Capsule PO (09:31)
[2024-12-01] MEDS: Aspirin 81 MG TAB.CHEW PO (09:31)
[2024-12-01] MEDS: Enoxaparin 40 MG/0.4 ML Syringe SC (09:32)
--- NOTE | 2024-12-01 10:54 | PN_ITS ---
Subjective Subjective Patient seen and examined. Says she is feeling better today. She was down to 5 L of oxygen. She still wheezing a bit. Review of systems otherwise negative. She has otherwise remained hemodynamically stable. Objective Data Objective Data Vital Signs: Vital Signs Temp Pulse Resp BP Pulse Ox O2 Del Method O2 Flow Rate 98.4 F 74 19 H 137/76 H 97 High Flow 5 12/01/24 09:26 12/01/24 09:26 12/01/24 09:26 12/01/24 09:26 12/01/24 09:26 12/01/24 09:26 12/01/24 09:26 FiO2 45 11/30/24 03:30 Oxygen Flow Rate (L/min) 5 Oxygen Delivery Method High Flow Weight: 168 lb 10.458 oz Body Mass Index (BMI) 32.9 Intake & Output: Intake and Output for Last 24 Hours 11/29/24 11/30/24 12/01/24 23:59 23:59 23:59 Intake Total 1505 / 1505 298.33 / 298.33 Output Total 450 / 750 950 / 950 Balance 1055 / 755 -651.67 / -651.67 Lab / Micro Data 12/01/24 03:11 12/01/24 03:11 Labs: Laboratory Results - last 24 hr 11/30/24 06:25: Differential Comment SCANNED, Platelet Estimate SLT DEC, Anisocytosis 2+ 12/01/24 03:11: WBC 9.4, RBC 3.89 L, Hgb 13.5, Hct 40.9, MCV 105.1 H, MCH 34.7 H , MCHC 33.0, RDW Std Deviation 68.7 H, RDW Coeff of Chelsie 17.8 H, Plt Count 118 L, MPV 10.2, Immature Gran % (Auto) 0.600, Neut % (Auto) 92.9 H, Lymph % (Auto) 2.1 L, [place] % (Auto) 4.4, Eos % (Auto) 0.0, Baso % (Auto) 0.0, Absolute Neuts (auto) 8.7 H, Absolute Lymphs (auto) 0.20 L, Nucleated RBC % 0, Differential Comment SCANNED, Anisocytosis 1+, Microcytosis RARE, Macrocytosis 1+, Sodium 138, P otassium 3.0 L, Chloride 98, Carbon Dioxide 33.0 H, Anion Gap 7, BUN 10, C reatinine 0.47 L, Estim Creat Clear Calc 55.54, Est GFR (MDRD) Af Amer 167, Est GFR (MDRD) Non-Af 138, BUN/Creatinine Ratio 21.4 H, Glucose 161 H, Calcium 8.2 L Micro: Microbiology 11/30/24 06:00 Sputum, Expectorated/Coughed Gram Stain - Final 11/30/24 06:00 Sputum, Expectorated/Coughed Respiratory Culture - Preliminary Appears to be normal respiratory abdoulaye. Further studies to follow. 11/28/24 21:08 Sputum, Expectorated/Coughed Gram Stain - Final 11/28/24 21:08 Sputum, Expectorated/Coughed Respiratory Culture - Final 11/29/24 12:20 Mucosa - Nose Respiratory Panel (PCR) - Final 11/28/24 19:00 Mucosa - Nose SARS-CoV-2, Influenza & RSV (PCR) - Final Physical Exam Const alert, oriented x3 and no apparent distress Constitutional Narrative: class 1 obesity General Appearance: cooperative and well developed HEENT normocephalic, head/scalp atraumatic, moist oral mucous membranes and oropharynx normal Eyes PERRL and EOMs intact bilaterally Neck no lymphadenopathy and supple Lymph Lymphatic: no lymphadenopathy noted Resp Resp Narrative: diminished breath sounds bibasally, bilateral crackles. on 5L of oxygen this morning. Cardio regular rate, regular rhythm, S1 normal heart sound, S2 normal heart sound and no murmurs GI normal to inspection, nondistended, normoactive bowel sounds, soft to palpation, non-tender and non-distended Extremity normal capillary refill, no clubbing, cyanosis or edema and no calf tenderness General Extremity: no tenderness to palpation of joints or extremities Skin General Skin Exam: no breakdown Neuro CN's II-XII intact bilaterally, no focal motor deficits and no sensory deficits noted Motor Exam: general weakness Psych thought process normal Appearance: appropriate Assessment & Plan Assessment/Plan (1) COPD exacerbation: (2) Pneumonia: (3) Acute hypoxic respiratory failure: PLAN: Plan #Acute hypoxic respiratory failure due to the left lower lobe pneumonia and acute on chronic COPD exacerbation * down to 5L of oxygen this morning. * Sputum cultures negative. * On IV Solu-Medrol, IV ceftriaxone and azithromycin. Sputum cultures pending. Breathing treatments bronchodilators. Titrate oxygen to maintain saturation above 90%. * Respiratory panel negative and sputum Gram stain negative. * #Hyponatremia:resolved. Sodium is 138 today. #Hypokalemia: Potassium is 3 today. Will replace and trend. # History of left breast cancer with concern for recurrence * Was initially diagnosed in January 2024 and had a left-sided lumpectomy and radiation but no chemotherapy. * CT of the chest on admission this time showed mild thickening of the left breast with subcutaneous soft tissue stranding with chronic discolored changes of the left breast. Patient thinks has become more prominent over the last 2 weeks. * Will benefit from follow-up with her surgeons and oncologist. She is due to have mammogram in 2 weeks. * #Chronic thrombocytopenia: Platelets were 93 on admission and now 96. Likely due to chronic alcohol abuse. Will monitor. #Elevated D-dimer: D-dimer was 2.[address] of the chest showed no evidence of PE. #Hypertension: Amlodipine. IV hydralazine as needed #History of migraines: On Endocet. #Anxiety depression: On citalopram and duloxetine #History of alcohol use disorder: * Drinks about 2-3 hard liquor drinks daily. * On CIWA protocol. Continue any active withdrawal. * On thiamine, folic acid and Multi-Melvin. #Nicotine dependence: Counseled to quit. Nicotine patch as needed #Class I obesity: Complicates acute care, expected recovery and prognosis. DVT prophylaxis: Lovenox Disposition: anticipate dc over the next 24-48 hours, when medically stable. Charges/Coding Visit Charges Inpatient E&M: 90262 Subs Hosp L2
[2024-12-01] MEDS: Ipratropium/Albuterol Sulfate 3 ML AMPUL.NEB INHALATION ×2 (11:03→19:58)
--- NOTE | 2024-12-01 13:30 | PN.CC_ITS ---
Objective Data Objective Data Vital Signs: Vital Signs Last response 3 Temperature 36.9 C 12/01/24 09:26 Temperature Source Oral 12/01/24 09:26 Pulse Rate 81 12/01/24 11:04 Pulse Strength Weak (1+) 12/01/24 09:37 Respiratory Rate 17 12/01/24 11:04 Respiratory Effort Normal, Non-Labored 12/01/24 09:30 Respiratory Depth Normal 12/01/24 09:30 Respiratory Pattern Normal 12/01/24 11:04 Blood Pressure 137/76 H 12/01/24 09:26 Blood Pressure Mean 96 12/01/24 09:26 Blood Pressure Source Monitor 12/01/24 09:26 Blood Pressure Position Semi-Fowlers 12/01/24 09:26 Blood Pressure Location Left Arm 12/01/24 09:26 Pulse Ox 97 12/01/24 09:26 Oxygen Delivery Method Nasal Cannula 12/01/24 09:30 Oxygen Flow Rate (L/min) 5 12/01/24 09:30 Fraction of Inspired Oxygen (FIO2) 45 11/30/24 03:30 I&O: I&O Last 24 Hours 3 11/30/24 12/01/24 12/01/24 23:59 11:59 23:59 Intake Total 298.33 / 298.33 Output Total 650 / 950 Balance -351.67 / -651.67 I&O: Total Stay 3 11/28/24 18:40 thru 12/01/24 05:43 Intake Total 3108.33 Output Total 2400 Balance 708.33 Current Meds Ordered / Administered: Current meds ordered / Administered 3 Generic Name Dose Route Start Last Admin Trade Name Freq PRN Reason Stop Dose Admin Acetaminophen 650 mg 11/28/24 23:27 Acetaminophen 325 Mg Tablet PO Q4H PRN PRN Fever, pain 1-10/10 Al Hydroxide/Mg Hydroxide 30 ml 11/28/24 23:27 Mag Hydrox/Al Hydrox/Simeth 30 Ml Udc PO Q6H PRN PRN Gastric Burning Albuterol Sulfate 2.5 mg 11/28/24 23:27 Albuterol 2.5 Mg/3 Ml Vial.Neb. INHALATION Q2H PRN PRN Dyspnea, wheezing Albuterol/Ipratropium 3 ml 11/28/24 23:27 12/01/24 11:03 Ipratropium/Albuterol Sulfate 3 Ml Ampul.Neb INHALATION 3 ml Q4HWA.RT JOAQUIM Administration Amlodipine Besylate 5 mg 11/29/24 10:00 12/01/24 09:31 Amlodipine 5 Mg Tablet PO 5 mg DAILY JOAQUIM Administration Protocol Aspirin 81 mg 11/29/24 08:00 12/01/24 09:31 Aspirin 81 Mg Tab.Chew PO 81 mg BREAKFAST JOAQUIM Administration Atorvastatin Calcium 40 mg 11/29/24 22:00 11/30/24 21:04 Atorvastatin Calcium 40 Mg Tablet PO 40 mg QHS JOAQUIM Administration Duloxetine HCl 20 mg 11/29/24 10:00 12/01/24 09:31 Duloxetine Hcl 20 Mg Capsule PO 20 mg DAILY JOAQUIM Administration Enoxaparin Sodium 40 mg 11/29/24 10:00 12/01/24 09:32 Enoxaparin 40 Mg/0.4 Ml Syringe SC 40 mg DAILY JOAQUIM Administration Guaifenesin 20 ml 11/28/24 23:27 Guaifenesin 10 Ml Udc (200mg/10ml) PO Q4H PRN PRN COUGH Hydralazine HCl 10 mg 11/28/24 23:27 Hydralazine 20 Mg/Ml Vial IV Q4H PRN PRN SBP > 160 Protocol Azithromycin 500 mg/ Sodium 255 mls @ 255 mls/hr 11/29/24 22:00 11/30/24 22:18 Chloride IV Infused Q24H JOAQUIM Infusion Ceftriaxone Sodium 2 gm/ 50 mls @ 100 mls/hr 11/29/24 22:00 11/30/24 22:43 Sodium Chloride IV Infused Q24H JOAQUIM Infusion Sodium Chloride 100 mls @ 15 mls/hr 11/28/24 23:36 IV .Q6H40M PRN Saline Flush Sodium Chloride 100 mls @ 15 mls/hr 11/28/24 23:36 IV .Q6H40M PRN Additional IVPB Infusion Lorazepam 2 mg 11/28/24 23:27 Lorazepam 2 Mg/Ml Syringe IV UD PRN CIWA score >/=15. Protocol Lorazepam 2 mg 11/28/24 23:27 Lorazepam 2 Mg/Ml Syringe IV Q2H PRN PRN CIWA score > 8 but <15 Protocol Lorazepam 2 mg 11/28/24 23:27 Lorazepam 1 Mg Tablet PO UD PRN CIWA score >/=15. Protocol Lorazepam 2 mg 11/28/24 23:27 Lorazepam 1 Mg Tablet PO Q2H PRN PRN CIWA score > 8 but <15 Protocol Melatonin 3 mg 11/28/24 23:27 11/30/24 21:13 Melatonin 3 Mg Tablet PO 3 mg QHS PRN PRN Administration INSOMNIA Methylprednisolone 40 mg 11/29/24 06:00 12/01/24 05:23 Methylprednisolone 40 Mg/Ml Vial IV 40 mg Q8 JOAQUIM Administration Nicotine 21 mg 11/28/24 23:27 12/01/24 09:32 Nicotine 21 Mg Patch TD 21 mg DAILY JOAQUIM Administration Ondansetron HCl 4 mg 11/28/24 23:27 Ondansetron 4 Mg/2 Ml Vial IV Q8H PRN PRN NAUSEA/VOMITING Polyethylene Glycol 17 gm 11/29/24 10:00 11/29/24 08:44 Polyethylene Glycol 3350 17 Gm Packet PO 17 gm DAILY JOAQUIM Administration Potassium Chloride 10 meq 11/29/24 10:00 12/01/24 09:31 Potassium Chloride Oral Tablet 10 Meq PO 10 meq DAILY JOAQUIM Administration Prochlorperazine Edisylate 5 mg 11/28/24 23:27 Prochlorperazine 10 Mg/2 Ml Vial IV Q4H PRN PRN Breakthrough Nausea/Vomiting Senna/Docusate Sodium 2 tablet 11/28/24 23:27 Senna/Docusate Sodium 1 Tablet PO BID PRN PRN Constipation Sodium Chloride 10 - 40 ml 11/28/24 23:36 12/01/24 05:23 0.9% Saline Lock 10 Ml Syringe IV 10 ml UD PRN Administration SALINE FLUSH Throat Lozenges 1 lozenge 11/28/24 23:27 Benzocaine/Menthol 1 Lozenge MUCOUS MEM Q2H PRN PRN SORE THROAT Lab / Micro Data Attestation: I reviewed the patient's lab results. 12/01/24 03:11 12/01/24 03:11 Labs: Laboratory Results - last 24 hr 12/01/24 03:11: WBC 9.4, RBC 3.89 L, Hgb 13.5, Hct 40.9, MCV 105.1 H, MCH 34.7 H , MCHC 33.0, RDW Std Deviation 68.7 H, RDW Coeff of Chelsie 17.8 H, Plt Count 118 L, MPV 10.2, Immature Gran % (Auto) 0.600, Neut % (Auto) 92.9 H, Lymph % (Auto) 2.1 L, [place] % (Auto) 4.4, Eos % (Auto) 0.0, Baso % (Auto) 0.0, Absolute Neuts (auto) 8.7 H, Absolute Lymphs (auto) 0.20 L, Nucleated RBC % 0, Differential Comment SCANNED, Anisocytosis 1+, Microcytosis RARE, Macrocytosis 1+, Sodium 138, P otassium 3.0 L, Chloride 98, Carbon Dioxide 33.0 H, Anion Gap 7, BUN 10, C reatinine 0.47 L, Estim Creat Clear Calc 55.54, Est GFR (MDRD) Af Amer 167, Est GFR (MDRD) Non-Af 138, BUN/Creatinine Ratio 21.4 H, Glucose 161 H, Calcium 8.2 L Micro: Microbiology 11/30/24 06:00 Sputum, Expectorated/Coughed Gram Stain - Final 11/30/24 06:00 Sputum, Expectorated/Coughed Respiratory Culture - Preliminary Appears to be normal respiratory abdoulaye. Further studies to follow. 11/28/24 21:08 Sputum, Expectorated/Coughed Gram Stain - Final 11/28/24 21:08 Sputum, Expectorated/Coughed Respiratory Culture - Final Assessment and Plan . Assessment and plan: 1. Acute hypoxemic respiratory failure Pneumonia plus ?suspected asthma-COPD overlap but per Dr. Rodríguez no airflow obstruction on previous PFTs. Has been slow to resolve but O2 needs finally improving, Discussed the usual goals for O2 requirements prior to planning hospital discharge. 2. Chronic tobacco dependency/hypertension/hyperlipidemia/alcohol dependency/anxiety/depression Complicates care, management, recovery and prognosis. Continue CIWA protocol and continue to monitor for any signs of alcohol withdrawal. Remainder of supportive care as noted above RECOMMENDATIONS: 1. Continue supplemental oxygen to maintain saturations at or above 90%. 2. Continue empiric antimicrobials. 3. Check respiratory viral panel. 4. Continue scheduled bronchodilators and steroids as ordered. 5. Encourage incentive spirometer use and mobilize patient as tolerated. Critical Care Time: 50 minutes The entirety of this encounter was done via Telemedicine Physical Exam Const alert, oriented x3 and no apparent distress Neck full ROM Lymph Lymphatic: no lymphadenopathy noted Resp Effort and Inspection: able to speak in complete sentences and uses accessory muscles Subjective Subjective States she is some better today, apparently did not need NIV overnight
[2024-12-01] MEDS: Ceftriaxone 2 GM in 0.9% Normal Saline (50mL MB+) 50 ML IV (20:06)
[2024-12-01] MEDS: Atorvastatin Calcium 40 MG Tablet PO (20:06)
[2024-12-01] MEDS: Azithromycin 500 MG in 0.9% Normal Saline (250mL Bag) 250 ML 255 MG IV (21:46)
[2024-12-02 03:50] VITALS: BP 140/84; PULSE 89; RESP 18; TEMP 36.7; O2SAT 92
[2024-12-02] MEDS: 0.9% Saline Lock 10 ML Syringe IV (04:46)
[2024-12-02 06:49] LABS: Anion Gap 8 (5-15); BUN 11 mg/dL (7-18); BUN/Creat Ratio 20.8 RATIO (10-20); Calcium,Total 8.9 mg/dL (8.5-10.1); Chloride 102 mmol/L (98-107); Creatinine, Serum 0.53 mg/dL (0.55-1.02); EST Glomerular Filtration Rate 120 mL/min (>60); Est Glom Filt Rate - Afr Amer 145 mL/min (>60); Estimated Creatinine Clearance 55.54 ml/min; Glucose 143 mg/dL (74-106); Potassium 3.7 mmol/L (3.5-5.1); Sodium Level 136 mmol/L (136-145)
[2024-12-02 06:52] LABS: Absolute Lymphocyte Count 0.21 X10^3/uL (0.83-4.51); Absolute Neutrophil Count 6.9 X10^3/uL (2.0-7.7); Basophil# 0.01 X10^3/uL; Basophil% 0.1 % (0-1); Hematocrit 44.3 % (37-47); Hemoglobin 15.3 g/dL (12.0-15.0); Lymphocyte # 0.21 X10^3/ul (0.83-4.51); Lymphocyte % 2.7 % (19-41); Mean Corp Hgb Conc 34.5 g/dL (32-36); Mean Corpuscular Hgb 35.4 pg (27.0-32.0); Mean Corpuscular Volume 102.5 fL (81-99); Mean Platelet Vol. 9.7 fl (6.2-12.0); Monocyte# 0.56 X10^3/uL; Monocyte% 7.2 % (0-10); NRBC Flagged by Analyzer 0 % (0-5); Neutrophil # 6.93 X10^3/uL (2.7-7.7); Neutrophil % 89.6 % (47-70); POSITIVE DIFFERENTIAL YES; POSITIVE MORPHOLOGY YES; Platelet Count 143 K/mm3 (150-450); RBC Distribution Width CV 17.3 % (11.6-14.6); Red Blood Count 4.32 M/mm3 (4.2-5.4); White Blood Count 7.7 K/mm3 (4.4-11.0)
[2024-12-02 07:05] LABS: Differential Indicated SCAN CRITERIA MET
[2024-12-02 07:08] VITALS: PULSE 88; RESP 20; O2SAT 93
[2024-12-02] MEDS: Ipratropium/Albuterol Sulfate 3 ML AMPUL.NEB INHALATION (07:08)
[2024-12-02 07:40] LABS: Anisocytosis 1+
[2024-12-02 09:24] VITALS: BP 130/83; PULSE 86; RESP 16; TEMP 36.9; O2SAT 94
[2024-12-02] MEDS: Lactobacillis Acidophilus 1 CAP PO (09:37)
[2024-12-02] MEDS: DULoxetine Hcl 20 MG Capsule PO (09:37)
[2024-12-02] MEDS: Aspirin 81 MG TAB.CHEW PO (09:37)
[2024-12-02] MEDS: Potassium Chloride Oral Tablet 10 MEQ PO (09:37)
[2024-12-02] MEDS: Enoxaparin 40 MG/0.4 ML Syringe SC (09:37)
[2024-12-02] MEDS: amLODIPine 5 MG Tablet PO (09:37)
[2024-12-02 11:10] VITALS: O2SAT 90; O2SAT 92
--- NOTE | 2024-12-02 11:22 | PN.CC_ITS ---
Assessment & Plan Assessment/Plan (1) Acute hypoxic respiratory failure: (2) COPD exacerbation: PLAN: Plan RECOMMENDATIONS: 1. Continue supplemental oxygen to maintain saturations at or above 90%. 2. Antimicrobials can be discontinued from my perspective. 3. Continue scheduled bronchodilators. 4. At discharge, transition to prednisone 40 mg daily to complete a 5-day burst. 5. Perform walking oximetry study prior to consideration for discharge home. 6. The patient should reestablish care in the pulmonary medicine office after discharge. IMPRESSIONS: 1. Acute hypoxemic respiratory failure Most likely secondary to asthma/COPD exacerbation related to ongoing tobacco dependency and questionable pneumonia. However, cultures were negative. Therefore, pneumonia has been ruled out. The patient was last seen in our pulmonary medicine office 2 years ago with a self-reported history of asthma. Her pulmonary function studies, at that time, did not demonstrate evidence of COPD. However, the patient has continued to smoke since that time. Therefore, it is certainly plausible that she may have gone on to develop obstructive lung mechanics. CTA ruled out pulmonary embolism. At this time, the patient appears clinically improved following several days of scheduled bronchodilators and steroids. I would recommend that we perform a walking oximetry study on her today to assess her readiness for discharge. Ultimately, the patient should reestablish care in the pulmonary medicine office so that repeat PFTs can be obtained and bronchodilator therapy prescribed, if needed. Antimicrobials can be discontinued from my perspective. At discharge, the patient can be transitioned to prednisone 40 mg daily to complete a 5-day burst. Smoking cessation is advisable. 2. Chronic tobacco dependency/hypertension/hyperlipidemia/alcohol dependency/anxiety/depression Complicates care, management, recovery and prognosis. Continue current supportive care as noted above. This note was generated with [employer] dictation software. It may contain incorrect words, spelling, and punctuation that were not noted in checking the note before signing. Subjective Subjective The patient was seen and examined at the bedside this morning. Events from the last 24 hours have been reviewed. The patient is currently afebrile, hemodynamically stable and maintaining appropriate oxygen saturations on room air. The patient is quite anxious to be discharged home. White blood cell count is normal. Chemistry profile was unremarkable. Objective Data Objective Data The patient's most recent lab work, culture data and imaging studies have all been personally reviewed. Sputum culture appears to be normal respiratory abdoulaye. Vital Signs: Vital Signs Temp Pulse Resp BP Pulse Ox O2 Del Method O2 Flow Rate 98.5 F 86 16 130/83 H 94 Room Air 2 12/02/24 09:24 12/02/24 09:24 12/02/24 09:24 12/02/24 09:24 12/02/24 09:24 12/02/24 09:28 12/01/24 16:40 FiO2 45 11/30/24 03:30 Oxygen Flow Rate (L/min) 2 Oxygen Delivery Method Room Air Weight: 168 lb 10.458 oz Body Mass Index (BMI) 32.9 Intake & Output: Intake and Output for Last 24 Hours 11/30/24 12/01/24 12/02/24 23:59 23:59 23:59 Intake Total 298.33 / 298.33 1045 / 1045 Output Total 950 / 950 Balance -651.67 / -651.67 1045 / 1045 Lab / Micro Data Attestation: I reviewed the patient's lab results. 12/02/24 06:34 12/02/24 05:51 Labs: Laboratory Results - last 24 hr 12/02/24 05:51: WBC Cancelled, Corrected WBC Cancelled, RBC Cancelled, Hgb Cancelled, Hct Cancelled, MCV Cancelled, MCH Cancelled, MCHC Cancelled, RDW Std Deviation Cancelled, RDW Coeff of Chelsie Cancelled, Plt Count Cancelled, MPV Cancelled, Immature Gran % (Auto) Cancelled, Neut % (Auto) Cancelled, Lymph % (Auto) Cancelled, [place] % (Auto) Cancelled, Eos % (Auto) Cancelled, Baso % (Auto) Cancelled, Absolute Neuts (auto) Cancelled, Absolute Lymphs (auto) Cancelled, Total Counted Cancelled, Neutrophils % (Manual) Cancelled, Band Neutrophils % Cancelled, Lymphocytes % (Manual) Cancelled, Monocytes % (Manual) Cancelled, Eosinophils % (Manual) Cancelled, Basophils % (Manual) Cancelled, Metamyelocytes % Cancelled, Myelocytes % Cancelled, Promyelocytes % Cancelled, Blast Cells % Cancelled, Plasma Cell % (Manual) Cancelled, Other Cells % Cancelled, Nucleated RBC % Cancelled, Nucleated RBCs/100 WBC Cancelled, Differential Comment Cancelled, Diff Path Review Cancelled, Hypersegmented Neuts Cancelled, Atypical Lymphocytes Cancelled, Reactive Lymphocytes Cancelled, Smudge Cells Cancelled, Toxic Granulation Cancelled, Toxic Vacuolation Cancelled, Dohle Bodies Cancelled, Krystle Rods Cancelled, Platelet Estimate Cancelled, Plt Morphology Comment Cancelled, RBC Morphology Cancelled 12/02/24 05:51: RBC Morphology Cancelled, Polychromasia Cancelled, Hypochromasia Cancelled, Basophilic Stippling Cancelled, Anisocytosis Cancelled, Microcytosis Cancelled, Macrocytosis Cancelled, Spherocytes Cancelled, Sickle Cells Cancelled, Target Cells Cancelled, Tear Drop Cells Cancelled, Ovalocytes Cancelled, Stomatocytes Cancelled, Gutierrez-[place] Bodies Cancelled, Missy Cells Cancelled, Bite Cells Cancelled, Crenated Cell Cancelled, Acanthocytes (Spur) Cancelled, Rouleaux Cancelled, Schistocytes Cancelled, Sodium 136, Potassium 3.7, Chloride 102, Carbon Dioxide 26.0, Anion Gap 8, BUN 11, Creatinine 0.53 L, Estim Creat Clear Calc 55.54, Est GFR (MDRD) Af Amer 145, Est GFR (MDRD) Non-Af 120, BUN/Creatinine Ratio 20.8 H, Glucose 143 H, Calcium 8.9 12/02/24 06:34: WBC 7.7, RBC 4.32, Hgb 15.3 H, Hct 44.3, MCV 102.5 H, MCH 35.4 H , MCHC 34.5, RDW Std Deviation 66.0 H, RDW Coeff of Chelsie 17.3 H, Plt Count 143 L, MPV 9.7, Immature Gran % (Auto) 0.400, Neut % (Auto) 89.6 H, Lymph % (Auto) 2.7 L, [place] % (Auto) 7.2, Eos % (Auto) 0.0, Baso % (Auto) 0.1, Absolute Neuts (auto) 6.9, Absolute Lymphs (auto) 0.21 L, Nucleated RBC % 0, Anisocytosis 1+ Micro: Microbiology 11/30/24 06:00 Sputum, Expectorated/Coughed Gram Stain - Final 11/30/24 06:00 Sputum, Expectorated/Coughed Respiratory Culture - Preliminary Appears to be normal respiratory abdoulaye. Further studies to follow. 11/28/24 21:08 Sputum, Expectorated/Coughed Gram Stain - Final 11/28/24 21:08 Sputum, Expectorated/Coughed Respiratory Culture - Final 11/29/24 12:20 Mucosa - Nose Respiratory Panel (PCR) - Final 11/28/24 19:00 Mucosa - Nose SARS-CoV-2, Influenza & RSV (PCR) - Final Physical Exam Const alert, oriented x3 and no apparent distress General Appearance: cooperative HEENT normocephalic, head/scalp atraumatic and moist oral mucous membranes Eyes PERRL, EOMs intact bilaterally and conjunctivae normal Neck supple General: trachea midline Chest inspection of chest normal Resp normal respiratory effort Auscultation: diminished lung sounds; Negative for rales, rhonchi or wheezes Cardio regular rate and regular rhythm GI normal to inspection, nondistended, normoactive bowel sounds Extremity no clubbing, cyanosis or edema Skin no rashes or lesions noted Neuro CN's II-XII intact bilaterally, moves all extremities and no focal motor deficits Psych cooperative and affect normal Charges/Coding Visit Charges Inpatient E&M: 69918 Subs Hosp L2
--- NOTE | 2024-12-02 11:26 | DCINST_ITS ---
Discharge Instructions Diet Discharge Diet: No restrictions DC O2, CPAP, BIPAP needs Home O2 Discharge instructions: No Dressing / Incision Discharge Activity: Return to Normal Activity Weight Bearing Status: Full weight bearing Follow Up Care Test Results: Test results from this visit will be discussed in further detail at your follow- up appointment, if applicable. Discharge Plan Admission Admit Date/Time: 11/28/24 22:40 Primary Reason for Your Visit: Exacerbation of COPD, probable viral illness Attending Provider: Ben Ornelas Primary Care Provider: Mell López NP Consulting Providers: Karen Liang; Get Kelley; Killian Mccall; Darinel Andre; Sen Rodríguez; Oneal La; Drew Stubbs; Danis Man; Ashley Scott; Kevin Messer; Kyler Carreon; Cruz Schneider; Tamara Coronel; Jocelynn Britt; Kimi Ramos; Bryon Carrizales; Cesar Head; David Jane; Manny Lazcano; Beatriz Nunez; Emily Casanova; Pancho Gutierrez; Adan Diego; Ky Black; Shilpa Andrews Discharge Orders/Prescriptions Prescriptions: New prednisone 20 mg tablet 40 mg PO DAILY Qty: 9 0RF Rx Instructions: 2 tabs daily for 3 days, then 1 tab daily for 3 days then stop albuterol sulfate 90 mcg/actuation HFA aerosol inhaler 2 puff inhalation Q6H PRN (Reason: shortness of breath or wheezing) Qty: 6.7 0RF Continued amlodipine 5 mg tablet 5 mg PO DAILY budesonide-formoterol [Symbicort] 80-4.5 mcg/actuation HFA aerosol inhaler 2 puff inhalation BID multivitamin Tablet 1 tab PO DAILY vitamin B complex Capsule 1 cap PO DAILY Probiotic 3 billion cell Capsule 3,000 mmu cells PO DAILY Rx Instructions: administer with a meal polyethylene glycol 3350 [Miralax] 17 gram/dose powder 17 g PO DAILY Qty: 119 0RF potassium chloride 10 mEq tablet,ER particles/crystals 10 meq PO DAILY duloxetine 20 mg capsule,delayed release(DR/EC) 20 mg PO DAILY aspirin 81 mg capsule 81 mg PO DAILY atorvastatin 40 mg tablet 40 mg PO DAILY Referrals / Follow Up: Mell López SUPERVISOR ENGRAVING, SUPERVISOR ENGRAVING-C [Primary Care Provider] - Within 2 Weeks Disposition Disposition (needs filled in before D/C Order can be placed): Home, Self Care
--- NOTE | 2024-12-02 11:35 | DS.PCM_ITS ---
Providers Date of Admission: 11/28/24 Date of Discharge: 12/02/24 Primary Care Physician: YO Bains Consultations 11/29/24 10:14 Consult: [facility] / Pulmonary Medicine Routine Consulting Provider: Intensivists/Pulmonary Med Reason for Consult: acute hypoxic respiratory failure EMERGENT Consult: No MD Notified: Yes Date Notified: 11/29/24 Time Notified: 10:15 Method of Notification: Text Reason For Visit: ACUTE HYPOXIC RESP FAILURE, COPD/ASTHMA Diagnosis Discharge Diagnosis (1) Acute hypoxic respiratory failure: Status: Acute Code(s): J96.01 - Acute respiratory failure with hypoxia (2) COPD exacerbation: Status: Chronic Code(s): J44.1 - Chronic obstructive pulmonary disease with (acute) exacerbation Plan 1. Acute hypoxic respiratory failure #2 acute COPD exacerbation #3 essential hypertension #4 hyperlipidemia #5 hypokalemia Pneumonia was ruled out Medications at Discharge Home Medications amlodipine 5 mg tablet 5 mg PO DAILY BLOOD PRESSURE 04/27/22 budesonide-formoterol HFA 80 mcg-4.5 mcg/actuation aerosol inhaler (Symbicort) 2 puff inhalation BID COPD 09/26/22 lactobacillus combination no.4 3 billion cell capsule (Probiotic) 3,000 mmu cells PO DAILY GUT HEALTH 12/29/22 multivitamin 1 tab PO DAILY HEALTH MAINTENANCE 12/29/22 polyethylene glycol 3350 17 gram/dose oral powder (Miralax) 17 g PO DAILY #119 grams 12/29/22 vitamin B complex 1 cap PO DAILY SUPPLEMENT 12/29/22 aspirin 81 mg capsule 81 mg PO DAILY 11/28/24 atorvastatin 40 mg tablet 40 mg PO DAILY 11/28/24 duloxetine 20 mg capsule,delayed release 20 mg PO DAILY 11/28/24 potassium chloride 10 mEq tablet,extended release(part/cryst) 10 meq PO DAILY 11/28/24 albuterol sulfate 90 mcg/actuation aerosol inhaler 2 puff inhalation Q6H PRN shortness of breath or wheezing #6.7 grams 12/02/24 prednisone 20 mg tablet 40 mg (2 x 20 mg) PO DAILY #9 tabs 12/02/24 Hospital Course Operations None Procedures None Summary of Care Provided Minutes Spent on Discharge: 31 Hospital Course: This 74-year-old white female was seen in the emergency room at [facility] chief complaint shortness of breath. Patient has a history of COPD. On arrival to the emergency room, patient was hypoxic at 60% on room air, she was placed on 6 L of nasal cannula oxygen with improvement. Workup included a CBC which showed a normal white blood cell count, hemoglobin was 14.7, D-dimer was elevated at 2.06, chest x-ray showed left greater than right basilar opacities which may represent infiltrate versus infection, there were small left greater than right pleural effusions. Chest CTA showed no evidence of pulmonary embolism, there were patchy left basilar and lingular consolidations with air bronchograms concerning for infection. Patient was admitted to PCU, she was initially placed on IV antibiotics, given aerosol treatments and IV corticosteroids. Patient's cultures were negative, pulmonary medicine saw the patient and felt that pneumonia had been ruled out. Patient clinically improved following several days of scheduled bronchodilators and IV corticosteroids, she did not require home O2 at the time of discharge from the hospital. On 12/02/2024, patient was seen and examined: On examination she appeared in good health and spirits, she does not appear to be in any distress. Vital signs as documented. Skin warm and dry and without overt rashes. Neck without JVD, thyroid appears normal, trachea is midline, neck is supple. Lungs clear, normal air movement was noted. Heart exam notable for regular rhythm, normal sounds and absence of murmurs, rubs or gallops. Abdomen unremarkable and without evidence of organomegaly, masses, or abdominal aortic enlargement, bowel sounds are present in all 4 quadrants, no abdominal tenderness was noted. Extremities nonedematous, no cyanosis was noted, no clubbing was noted. Neuro: Cranial nerves II through XII are grossly intact, no focal motor deficits were noted, sensation to light touch and pinprick is intact, motor exam 5/5 throughout. Psych: Patient is alert and oriented x3, she does not appear anxious or depressed, she does not appear agitated. Patient was discharged home in stable condition on 12/02/2024. Weight / BMI Weight Weight: 76.5 kg Body Mass Index (BMI) 32.9 ABG / Lab / Microbiology Data 12/02/24 06:34 12/02/24 05:51 Laboratory: Laboratory Results - last 24 hr 12/02/24 05:51: WBC Cancelled, Corrected WBC Cancelled, RBC Cancelled, Hgb Cancelled, Hct Cancelled, MCV Cancelled, MCH Cancelled, MCHC Cancelled, RDW Std Deviation Cancelled, RDW Coeff of Chelsie Cancelled, Plt Count Cancelled, MPV Cancelled, Immature Gran % (Auto) Cancelled, Neut % (Auto) Cancelled, Lymph % (Auto) Cancelled, [place] % (Auto) Cancelled, Eos % (Auto) Cancelled, Baso % (Auto) Cancelled, Absolute Neuts (auto) Cancelled, Absolute Lymphs (auto) Cancelled, Total Counted Cancelled, Neutrophils % (Manual) Cancelled, Band Neutrophils % Cancelled, Lymphocytes % (Manual) Cancelled, Monocytes % (Manual) Cancelled, Eosinophils % (Manual) Cancelled, Basophils % (Manual) Cancelled, Metamyelocytes % Cancelled, Myelocytes % Cancelled, Promyelocytes % Cancelled, Blast Cells % Cancelled, Plasma Cell % (Manual) Cancelled, Other Cells % Cancelled, Nucleated RBC % Cancelled, Nucleated RBCs/100 WBC Cancelled, Differential Comment Cancelled, Diff Path Review Cancelled, Hypersegmented Neuts Cancelled, Atypical Lymphocytes Cancelled, Reactive Lymphocytes Cancelled, Smudge Cells Cancelled, Toxic Granulation Cancelled, Toxic Vacuolation Cancelled, Dohle Bodies Cancelled, Krystle Rods Cancelled, Platelet Estimate Cancelled, Plt Morphology Comment Cancelled, RBC Morphology Cancelled 12/02/24 05:51: RBC Morphology Cancelled, Polychromasia Cancelled, Hypochromasia Cancelled, Basophilic Stippling Cancelled, Anisocytosis Cancelled, Microcytosis Cancelled, Macrocytosis Cancelled, Spherocytes Cancelled, Sickle Cells Cancelled, Target Cells Cancelled, Tear Drop Cells Cancelled, Ovalocytes Cancelled, Stomatocytes Cancelled, Gutierrez-[place] Bodies Cancelled, [place] Cells Cancelled, Bite Cells Cancelled, Crenated Cell Cancelled, Acanthocytes (Spur) Cancelled, Rouleaux Cancelled, Schistocytes Cancelled, Sodium 136, Potassium 3.7, Chloride 102, Carbon Dioxide 26.0, Anion Gap 8, BUN 11, Creatinine 0.53 L, Estim Creat Clear Calc 55.54, Est GFR (MDRD) Af Amer 145, Est GFR (MDRD) Non-Af 120, BUN/Creatinine Ratio 20.8 H, Glucose 143 H, Calcium 8.9 12/02/24 06:34: WBC 7.7, RBC 4.32, Hgb 15.3 H, Hct 44.3, MCV 102.5 H, MCH 35.4 H , MCHC 34.5, RDW Std Deviation 66.0 H, RDW Coeff of Chelsie 17.3 H, Plt Count 143 L, MPV 9.7, Immature Gran % (Auto) 0.400, Neut % (Auto) 89.6 H, Lymph % (Auto) 2.7 L, [place] % (Auto) 7.2, Eos % (Auto) 0.0, Baso % (Auto) 0.1, Absolute Neuts (auto) 6.9, Absolute Lymphs (auto) 0.21 L, Nucleated RBC % 0, Anisocytosis 1+ Microbiology: Microbiology 11/30/24 06:00 Sputum, Expectorated/Coughed Gram Stain - Final 11/30/24 06:00 Sputum, Expectorated/Coughed Respiratory Culture - Final Mixed normal respiratory abdoulaye. No Haemophilus, Streptococcus pneumoniae, beta-hemolytic Streptococcus or Staphylococcus aureus isolated. 11/28/24 21:08 Sputum, Expectorated/Coughed Gram Stain - Final 11/28/24 21:08 Sputum, Expectorated/Coughed Respiratory Culture - Final 11/29/24 12:20 Mucosa - Nose Respiratory Panel (PCR) - Final 11/28/24 19:00 Mucosa - Nose SARS-CoV-2, Influenza & RSV (PCR) - Final D/C Instructions Discharge Diet: No restrictions Weight Bearing Status: Full weight bearing DC O2, CPAP, BIPAP Needs RN Home O2 Qualification: Home O2 Qualification: Is the patient on home oxygen No 12/02/24 11:10 Home O2 Qualification: AT REST 1- Pulse Ox at rest 92 12/02/24 11:10 Home O2 Qualification: WITH AMBULATION 1- Pulse Ox with ambulation 90 12/02/24 11:10 1- Oxygen Flow Rate with 0 12/02/24 11:10 ambulation PSN CPAP & BiPAP: BiPAP & CPAP Settings per PSN Mode BiPAP 12/02/24 00:10 Bipap Delivery Device Face Mask 11/30/24 02:49 BiPAP Inspiratory Pressure 12 11/30/24 02:49 BiPAP Expiratory Pressure 6 11/30/24 02:49 BiPAP Rate 12 11/30/24 02:49 Fraction of Inspired Oxygen ( 45 11/30/24 03:30 FIO2) Home O2 Discharge instructions: No Meaningful Use Info Meaningful Use Meaningful Use Diagnoses (Choose all that apply): None applicable Ischemic Stroke Statin Dosing Therapy Reference: STATIN DOSE THERAPY REFERENCE: * Patients > 75 years receive moderate or high dose statin therapy. * Patients 75 years or YOUNGER should receive HIGH intensity statin dose unless contraindicated. You will be required to document reason for non-treatment if statin daily dose does not meet guidelines. HIGH DOSE STATIN THERAPY DAILY Atorvastatin > than or = to 40 mg Rosuvastatin > than or = to 20 mg Amlodipine + Atorvastatin > than or = to 2.5/40 mg Ezetimibe + Simvastatin 10/80 mg Simvastatin 80mg Discharge Plan Admission Admit Date/Time: 11/28/24 22:40 Primary Reason for Your Visit: Exacerbation of COPD, probable viral illness Attending Provider: Ben Ornelas Primary Care Provider: Mell López NP Consulting Providers: Karen Liang; Get Kelley; Killian Mccall; Darinel Zaldivar; Sen Rodríguez; Oneal La; Drew Stubbs; Danis Man; Ashley Scott; Kevin Messer; Kyler Carreon; Cruz Schneider; Tamara Coronel; Jocelynn Britt; Kimi Ramos; Bryon Carrizales; Cesar Head; David Jane; Manny Lazcano; Beatriz Nunez; Emily Casanova; Pancho Gutierrez; Adan Diego; Ky Black; Shilpa Andrews Discharge Orders/Prescriptions Prescriptions: New prednisone 20 mg tablet 40 mg PO DAILY Qty: 9 0RF Rx Instructions: 2 tabs daily for 3 days, then 1 tab daily for 3 days then stop albuterol sulfate 90 mcg/actuation HFA aerosol inhaler 2 puff inhalation Q6H PRN (Reason: shortness of breath or wheezing) Qty: 6.7 0RF Continued amlodipine 5 mg tablet 5 mg PO DAILY budesonide-formoterol [Symbicort] 80-4.5 mcg/actuation HFA aerosol inhaler 2 puff inhalation BID multivitamin Tablet 1 tab PO DAILY vitamin B complex Capsule 1 cap PO DAILY Probiotic 3 billion cell Capsule 3,000 mmu cells PO DAILY Rx Instructions: administer with a meal polyethylene glycol 3350 [Miralax] 17 gram/dose powder 17 g PO DAILY Qty: 119 0RF potassium chloride 10 mEq tablet,ER particles/crystals 10 meq PO DAILY duloxetine 20 mg capsule,delayed release(DR/EC) 20 mg PO DAILY aspirin 81 mg capsule 81 mg PO DAILY atorvastatin 40 mg tablet 40 mg PO DAILY Referrals / Follow Up: Mell López FIRE SPRINKLER SERVICE TECHNICIAN, FIRE SPRINKLER SERVICE TECHNICIAN-C [Primary Care Provider] - Within 2 Weeks Disposition Disposition (needs filled in before D/C Order can be placed): Home, Self Care Charges/Coding Visit Charges Inpatient E&M: 67344 Disch Hosp >30min
--- NOTE | 2024-12-02 12:07 | CASEMGMT ---
Patient has order for discharge. RN CM in to discuss needs at discharge, son at bedside. Patient declines outpatient therapy at discharge and RN CM advised patient and son to follow-up with PCP if they should reconsider, patient and son voiced understanding. Patient denies needs or help at discharge. Patient had no further questions or concerns.
== END 2024-12-02 12:35 | disposition home or self-care (01) | DRG 189 ==
LOC: ED 20:17 → PCU 23:26
PROVIDERS: Internal Medicine Critical Care Medicine; Student in an Organized Health Care Education/Training Program; Admitting Provider Family Medicine; Emergency Provider Surgery; PCP Internal Medicine; Visit Provider Internal Medicine
DX: J96.01 Acute respiratory failure with hypoxia (principal); E87.1 Hypo-osmolality and hyponatremia; J44.1 Chronic obstructive pulmonary disease with (acute) exacerbation; M48.54XA Collapsed vertebra, not elsewhere classified, thoracic region, initial encounter for fracture; E86.1 Hypovolemia; I10 Essential (primary) hypertension; F32.A Depression, unspecified; F10.10 Alcohol abuse, uncomplicated; E66.811 Obesity, class 1; E78.5 Hyperlipidemia, unspecified; E87.8 Other disorders of electrolyte and fluid balance, not elsewhere classified; G43.709 Chronic migraine without aura, not intractable, without status migrainosus; E87.6 Hypokalemia; F17.210 Nicotine dependence, cigarettes, uncomplicated; F41.9 Anxiety disorder, unspecified; R19.7 Diarrhea, unspecified; Z68.32 Body mass index [BMI] 32.0-32.9, adult; Z11.52 Encounter for screening for COVID-19; Z79.51 Long term (current) use of inhaled steroids; Z79.82 Long term (current) use of aspirin; Z92.3 Personal history of irradiation; Z85.3 Personal history of malignant neoplasm of breast
CPT/HCPCS: 36415; 71046; 71275; 80048; 80053; 82803; 83605; 83735; 83880; 84100; 84145; 84484; 85025; 85379; 87070; 87205; 87631; 87633; 93005; 93306; 93970; 94002; 94003; 94640; 94760; 94762; 97116; 97163; 97166; 97530; 97535; 99285; 99406; Q9967; A4216; J0696

== ENCOUNTER 2024-12-14 18:36 | Inpatient (IN) | payer MEDICARE, SELFPAY ==
[2024-12-14] VITALS (8 sets, daily range): BP systolic 120–151; BP diastolic 67–95; PULSE 82–90; RESP 18–26; TEMP 36.6–36.8; O2SAT 86–95; BMI 32.5; BMI 31.1
--- NOTE | 2024-12-14 18:49 | EKG12_ITS ---
Test Reason : DYSRHYTHMIA Blood Pressure : */* mmHG Vent. Rate : 83 BPM Atrial Rate : 83 BPM P-R Int : 164 ms QRS Dur : 70 ms QT Int : 372 ms P-R-T Axes : 49 -43 10 degrees QTcB Int : 437 ms Normal sinus rhythm Left axis deviation Low voltage QRS Inferior infarct (cited on or before 29-Dec-2022) Cannot rule out Anterior infarct (cited on or before 29-Dec-2022) Abnormal ECG Confirmed by Qasim Valadez ([id number]), news assignment editor EMILIANO TAYLOR ([id number]) on 12/16/2024 10:12:02 AM Referred By: Porter Elias Confirmed By: Qasim Valadez
--- NOTE | 2024-12-14 18:55 | EDS_ITS ---
HPI <ANITRA Francisco - Last Filed: 12/14/24 22:04> History of Present Illness Chief Complaint: Confusion Narrative Narrative: 74-year-old female with past medical history of HTN, HLD, COPD woke up from her nap around 5:30 PM and was hard to arouse and confused. She was 84% on room air for EMS and placed on nasal cannula oxygen. She does not wear home O2. states she had a very similar episode on 11/28/2024 where she was admitted here. They initially thought it was pneumonia but then they were told it was respiratory failure from COPD. She was discharged on room air and was doing well. She followed up with her PCP and had a normal outpatient chest x-ray on 12/10. Even this morning she was feeling fine and they had breakfast and she was doing things around the house. She has a chronic cough from COPD but denies increase in cough or sputum production. No fever or chills. No chest pain and she denies feeling short of breath. [facility] <ANITRA Francisco - Last Filed: 12/14/24 22:04> [facility] Medical History (Updated 12/14/24 @ 21:56 by ANITRA Francisco) Pneumonia COPD exacerbation Acute hypoxic respiratory failure History of breast cancer Obesity Asthma Anxiety and depression Tobacco use Thrombocytopenia HLD (hyperlipidemia) Chronic neck and back pain Alcohol abuse Osteopenia Coagulation defect Popliteal aneurysm COPD (chronic obstructive pulmonary disease) History of colon polyps Hypertension Migraines Chronic bronchitis Home Medications ?Medication ?Instructions ?Recorded ?Last Taken ?Type amlodipine 5 mg tablet 5 mg PO DAILY BLOOD PRESSURE 04/27/22 12/29/22 History budesonide-formoterol HFA 80 2 puff inhalation BID [employer]ULT [employer]UCATION [employer]ESSION[employer] D 09/26/22 12/29/22 History mcg-4.5 mcg/actuation aerosol inhaler (Symbicort) lactobacillus combination no.4 3 3,000 mmu cells PO DA [facility] 12/29/22 12/29/22 History billion cell capsule (Probiotic) multivitamin 1 tab PO DAILY [facility] 12/29/22 12/29/22 History polyethylene glycol 3350 17 17 g PO DAILY #119 grams 0 12/29/22 Unknown Rx gram/dose oral powder (Miralax) aspirin 81 mg capsule 81 mg PO DAILY 11/28/24 Unkn own History atorvastatin 40 mg tablet 40 mg PO DAILY 11/28/24 Unkn own History albuterol sulfate 90 mcg/actuation 2 puff inhalation Q 6H PRN 12/02/24 Unknown Rx aerosol inhaler shortness of breath or wheez ing #6.7 grams calcium carbonate (Calcium 600) 600 mg PO DAILY Unknown History clopidogrel 75 mg tablet 75 mg PO DAILY 12/14/24 Unkn own History duloxetine 30 mg capsule,delayed 30 mg PO DAILY Unknown History release magnesium 250 mg tablet 250 mg PO DAILY 12/14/24 Unk nown History methocarbamol 500 mg tablet 500 mg PO TID 12/14/24 Unk nown History potassium chloride 10 mEq 10 meq PO DAILY 12/14/24 Unk nown History tablet,extended release Allergy/AdvReac Type Severity Reaction Status Date / Time No Known Allergies Allergy Verified 12/14/24 18:36 Family History Daughter Alcoholism Anxiety Sister Diabetes Mother Heart disease Hypertension CVA (cerebral vascular accident) Father Heart disease Brother Lung cancer Surgical History S/P lumpectomy, left breast S/P spinal fusion History of Social History (Updated 11/28/24 @ 23:[address] Karen Liang MD) household members: spouse Smoking Status: Current every day smoker tobacco type: cigarettes Tobacco: How many years used: 50 second hand exposure: No alcohol intake: current alcohol intake frequency: 0-2 drinks per day Alcohol type: hard liquor details: occasoinally substance use type: does not use what type of physical activity do you participate in: other details: silver sneakers frequency: 3-4 times per week marielos/cheondoism: Hoahaoism seatbelt use: always ROS <ANITRA Francisco - Last Filed: 12/14/24 22:04> ROS ED ROS Narrative Constitutional: Negative for fever, chills, malaise. CVS: Negative for palpitations, chest pain, syncope. Respiratory: Positive for chronic cough. GI: Negative for abdominal pain, nausea, vomiting. EXAM <ANITRA Francisco - Last Filed: 12/14/24 22:04> Physical Exam Narrative Exam Narrative: CONST: Patient sitting in no acute distress. EYES: Normal inspection. NECK: Normal inspection. RESP: No respiratory distress, bibasilar crackles. CVS: Regular rate and rhythm, no murmur, no gallop. ABD: Soft and nontender, no guarding or rebound, nondistended. SKIN: Color normal, no rash, warm, dry, intact. EXTREMITIES: Normal appearance, no pedal edema. NEURO: Alert and oriented x 4 but then occasionally repeating herself and stating she wants to go home. Face symmetric, moving all extremities, no focal deficits. PSYCH: Normal affect. Const Vital Signs: 12/14/24 18:36 12/14/24 18:40 12/14/24 19:20 Temperature 98.3 F 98.3 F Temperature Source Oral Oral Pulse Rate 86 84 Respiratory Rate 22 H 24 H Blood Pressure 122/84 H 122/84 H Blood Pressure Mean 96 96 Pulse Ox 86 92 93 Oxygen Delivery Method Room Air Nasal Cannula Venturi Mask Oxygen Flow Rate (L/min) 5 8 Fraction of Inspired Oxygen (FIO2) 35 12/14/24 19:39 12/14/24 20:36 12/14/24 21:00 Temperature 97.9 F 97.9 F Temperature Source Oral Oral Pulse Rate 82 84 89 Respiratory Rate 18 21 H 18 Blood Pressure 134/82 H 123/80 H 131/95 H Blood Pressure Mean 99 94 107 Pulse Ox 95 95 95 Oxygen Delivery Method Venturi Mask Venturi Mask Oxygen Flow Rate (L/min) 8 8 Fraction of Inspired Oxygen (FIO2) 12/14/24 21:38 Temperature 97.8 F Temperature Source Pulse Rate 89 Respiratory Rate 19 H Blood Pressure 151/89 H Blood Pressure Mean 109 Pulse Ox 92 Oxygen Delivery Method Oxygen Flow Rate (L/min) Fraction of Inspired Oxygen (FIO2) <Porter Elias MD - Last Filed: 12/14/24 22:09> Physical Exam Const Vital Signs: 12/14/24 18:36 12/14/24 18:40 12/14/24 19:20 Temperature 98.3 F 98.3 F Temperature Source Oral Oral Pulse Rate 86 84 Respiratory Rate 22 H 24 H Blood Pressure 122/84 H 122/84 H Blood Pressure Mean 96 96 Pulse Ox 86 92 93 Oxygen Delivery Method Room Air Nasal Cannula Venturi Mask Oxygen Flow Rate (L/min) 5 8 Fraction of Inspired Oxygen (FIO2) 35 12/14/24 19:39 12/14/24 20:36 12/14/24 21:00 Temperature 97.9 F 97.9 F Temperature Source Oral Oral Pulse Rate 82 84 89 Respiratory Rate 18 21 H 18 Blood Pressure 134/82 H 123/80 H 131/95 H Blood Pressure Mean 99 94 107 Pulse Ox 95 95 95 Oxygen Delivery Method Venturi Mask Venturi Mask Oxygen Flow Rate (L/min) 8 8 Fraction of Inspired Oxygen (FIO2) 12/14/24 21:38 Temperature 97.8 F Temperature Source Pulse Rate 89 Respiratory Rate 19 H Blood Pressure 151/89 H Blood Pressure Mean 109 Pulse Ox 92 Oxygen Delivery Method Oxygen Flow Rate (L/min) Fraction of Inspired Oxygen (FIO2) MDM <ANITRA Francisco - Last Filed: 12/14/24 22:04> MDM MDM Narrative Medical decision making narrative: 74-year-old female with COPD presents with altered mental status. She was hypoxic at 80% on room air and arrived on 5 L nasal cannula. Exam notable for bibasilar crackles. She is alert and oriented x 4 and has no focal neurological deficits but states earlier she was repeating herself and hard to arouse from her nap. CBC shows WBC of 5.1, Hgb 14.2, platelets 185. Chemistry is unremarkable. EKG is nonischemic and troponin is 9. BNP 41.5. ABG shows pH of 7.361, CO2 58.9, O2 of 50.7. Since the patient was breathing through her mouth with the nasal cannula I requested the nurse to place her on a Venturi mask. With normal pH she is compensating and I do not think her CO2 level is high enough to cause her altered mental status. CXR is negative. Viral swab negative. Urinalysis negative. The nurse reported smelling alcohol on the patient's breath so a level was obtained and is 299. She admits to drinking daily. Patient is not wheezing so I did not order aerosols or steroids. Since this occurred after her nap I suspect she could have sleep apnea. She also was probably confused from her alcohol use. I discussed the case with the hospitalist for admission and she will discuss with the patient at bedside. Lab Data Attestation: I reviewed the patient's lab results. Labs: Laboratory Results - last 24 hr 12/14/24 12/14/24 12/14/24 18:40 20:04 20:07 WBC 5.1 RBC 4.03 L Hgb 14.2 Hct 41.8 MCV 103.7 H MCH 35.2 H MCHC 34.0 RDW Std Deviation 66.3 H RDW Coeff of Chelsie 17.3 H Plt Count 185 MPV 9.9 Immature Gran % (Auto) 0.600 Neut % (Auto) 57.2 Lymph % (Auto) 27.2 [place] % (Auto) 10.6 H Eos % (Auto) 2.6 Baso % (Auto) 1.8 H Absolute Neuts (auto) 2.9 Absolute Lymphs (auto) 1.38 Nucleated RBC % 0 Platelet Estimate ADEQUATE RBC Morphology N CHROM Anisocytosis 1+ Sodium 143 Potassium 4.5 Chloride 108 H Carbon Dioxide 29.0 Anion Gap 6 BUN 8 Creatinine 0.50 L Estim Creat Clear Calc 55.23 Est GFR (MDRD) Af Amer 153 Est GFR (MDRD) Non-Af 127 BUN/Creatinine Ratio 15.9 Glucose 86 Calcium 8.6 Troponin I High Sens 9 B-Natriuretic Peptide 41.5 Urine Color Yellow Urine Clarity Clear Urine pH 6.0 Ur Specific [place] 1.015 Urine Protein Negative Urine Glucose (UA) Normal Urine Ketones Negative Urine Occult Blood Negative Urine Nitrite Negative Urine Bilirubin Negative Urine Urobilinogen Normal Ur Leukocyte Esterase Negative Urine RBC 0 SEEN Urine WBC 0 SEEN Ur Squamous Epith Cells 0 SEEN Urine Bacteria 0 SEEN Urine Mucus 0 SEEN Ethyl Alcohol 299.0 ABG Data ABG results: ABG 12/14/24 19:13 Specimen Type ART Sample Site L Radial pH 7.36 Bicarbonate Actual 33.3 H Total CO2 35 Base Excess 8 H O2 Saturation 83 L O2 % 28.0 ABG pCO2 58.9 H ABG pO2 51 L Jose Angel Test Positive O2 Delivery Device Venti Mask Vent Mode Not entered Radiography Diagnostic Testing: Clinical Impression(s) from Imaging Studies Chest X-Ray 12/14/24 19:27 IMPRESSION: No definite acute airspace abnormality. Improved aeration of both lung bases compared to recent prior. Reading Location: [facility] attending interpretation of 2-view chest x-ray shows normal heart size, no acute infiltrate. EKG Initial EKG: Attestation: I personally reviewed and interpreted this EKG as follows: Interpretation: Sinus Rhythm and No Acute Injury Pattern Comments: Normal sinus rhythm 83 bpm Left axis deviation, no acute ischemic changes <Porter Elias MD - Last Filed: 12/14/24 22:09> [facility] Lab Data Labs: Laboratory Results - last 24 hr 12/14/24 12/14/24 12/14/24 18:40 20:04 20:07 WBC 5.1 RBC 4.03 L Hgb 14.2 Hct 41.8 MCV 103.7 H MCH 35.2 H MCHC 34.0 RDW Std Deviation 66.3 H RDW Coeff of Chelsie 17.3 H Plt Count 185 MPV 9.9 Immature Gran % (Auto) 0.600 Neut % (Auto) 57.2 Lymph % (Auto) 27.2 [place] % (Auto) 10.6 H Eos % (Auto) 2.6 Baso % (Auto) 1.8 H Absolute Neuts (auto) 2.9 Absolute Lymphs (auto) 1.38 Nucleated RBC % 0 Platelet Estimate ADEQUATE RBC Morphology N CHROM Anisocytosis 1+ Sodium 143 Potassium 4.5 Chloride 108 H Carbon Dioxide 29.0 Anion Gap 6 BUN 8 Creatinine 0.50 L Estim Creat Clear Calc 55.23 Est GFR (MDRD) Af Amer 153 Est GFR (MDRD) Non-Af 127 BUN/Creatinine Ratio 15.9 Glucose 86 Calcium 8.6 Troponin I High Sens 9 B-Natriuretic Peptide 41.5 Urine Color Yellow Urine Clarity Clear Urine pH 6.0 Ur Specific [place] 1.015 Urine Protein Negative Urine Glucose (UA) Normal Urine Ketones Negative Urine Occult Blood Negative Urine Nitrite Negative Urine Bilirubin Negative Urine Urobilinogen Normal Ur Leukocyte Esterase Negative Urine RBC 0 SEEN Urine WBC 0 SEEN Ur Squamous Epith Cells 0 SEEN Urine Bacteria 0 SEEN Urine Mucus 0 SEEN Ethyl Alcohol 299.0 ABG Data ABG results: ABG 12/14/24 19:13 Specimen Type ART Sample Site L Radial pH 7.36 Bicarbonate Actual 33.3 H Total CO2 35 Base Excess 8 H O2 Saturation 83 L O2 % 28.0 ABG pCO2 58.9 H ABG pO2 51 L Jose Angel Test Positive O2 Delivery Device Venti Mask Vent Mode Not entered Radiography Diagnostic Testing: Clinical Impression(s) from Imaging Studies Chest X-Ray 12/14/24 19:27 IMPRESSION: No definite acute airspace abnormality. Improved aeration of both lung bases compared to recent prior. Reading Location: [facility] Management Discussion w/another healthcare provider: Hospitalist Treatment and Re-Evaluation :: Dr. Elias: I have personally performed a face to face assessment of the patient and have reviewed the VICTOR MANUEL Note. I performed a substantive portion of the visit including all aspects of the following. My dotson findings include: History is confusion, history of COPD. Went down for a nap and awoke confused according to . Exam is afebrile. Vital signs noted. Nontoxic-appearing. Intermittently belligerent. Cardiovascular examination regular rate and rhythm. Coarse breath sounds bilaterally. Abdomen soft and nontender with positive bowel sounds. Medical Decision Making: Patient initially hypoxic at 86% on room air. Placed on nasal cannula oxygen but was mouth breathing so placed on Venturi mask. Check EKG, EKG interpreted by myself independently demonstrates normal sinus rhythm at 83 bpm without ectopy or acute ST changes. No STEMI. Differential diagnosis includes CO2 retention versus COPD exacerbation. I have low suspicion for PE because she recently had an admission 2 weeks ago and a CTA that was negative for pulmonary embolism. I reviewed her prior records. Check ABG with pCO2 of 58.9. Was not felt that she requires BiPAP at this time. She was left on a Venturi mask. Check labs. Respiratory swab negative for COVID, influenza, and RSV. Chest x-ray interpreted by myself independently shows improvement of aeration without any consolidation or pneumothorax. I reviewed the radiology report which confirms my independent interpretation. Blood alcohol level is elevated to 99. Patient discussed with the hospitalist for admission for hypoxia as she does not have oxygen at home. Disposition is admit in stable condition. Other additions or changes: [None] Discharge Plan Triage Chief Complaint: Confusion ED Midlevel Provider: Narda Joy ED Provider: Porter Elias Dx/Rx/DC Orders Clinical Impression: Acute hypoxic respiratory failure, COPD (chronic obstructive pulmonary disease), Alcohol intoxication Prescriptions: No Action amlodipine 5 mg tablet 5 mg PO DAILY budesonide-formoterol [Symbicort] 80-4.5 mcg/actuation HFA aerosol inhaler 2 puff inhalation BID multivitamin Tablet 1 tab PO DAILY Probiotic 3 billion cell Capsule 3,000 mmu cells PO DAILY Rx Instructions: administer with a meal polyethylene glycol 3350 [Miralax] 17 gram/dose powder 17 g PO DAILY Qty: 119 0RF calcium carbonate [Calcium 600] 600 mg calcium (1,500 mg) tablet 600 mg PO DAILY clopidogrel 75 mg tablet 75 mg PO DAILY duloxetine 30 mg capsule,delayed release(DR/EC) 30 mg PO DAILY magnesium 250 mg tablet 250 mg PO DAILY methocarbamol 500 mg tablet 500 mg PO TID potassium chloride 10 mEq tablet extended release 10 meq PO DAILY aspirin 81 mg capsule 81 mg PO DAILY atorvastatin 40 mg tablet 40 mg PO DAILY albuterol sulfate 90 mcg/actuation HFA aerosol inhaler 2 puff inhalation Q6H PRN (Reason: shortness of breath or wheezing) Qty: 6.7 0RF Primary Care Provider: Mell López NP Referrals: Mell López NP, [employer] [Primary Care Provider] - Print Language: Frisian
[2024-12-14 18:58] LABS: Absolute Lymphocyte Count 1.38 X10^3/uL (0.83-4.51); Absolute Neutrophil Count 2.9 X10^3/uL (2.0-7.7); Basophil# 0.09 X10^3/uL; Basophil% 1.8 % (0-1); Eosinophil# 0.13 X10^3/uL; Eosinophils% 2.6 % (0-5); Hematocrit 41.8 % (37-47); Hemoglobin 14.2 g/dL (12.0-15.0); Lymphocyte # 1.38 X10^3/ul (0.83-4.51); Lymphocyte % 27.2 % (19-41); Mean Corpuscular Hgb 35.2 pg (27.0-32.0); Mean Corpuscular Volume 103.7 fL (81-99); Mean Platelet Vol. 9.9 fl (6.2-12.0); Monocyte# 0.54 X10^3/uL; Monocyte% 10.6 % (0-10); NRBC Flagged by Analyzer 0 % (0-5); Neutrophil # 2.91 X10^3/uL (2.7-7.7); Neutrophil % 57.2 % (47-70); POSITIVE MORPHOLOGY YES; Platelet Count 185 K/mm3 (150-450); RBC Distribution Width CV 17.3 % (11.6-14.6); RBC Distribution Width SD 66.3 fl (35.1-43.9); Red Blood Count 4.03 M/mm3 (4.2-5.4); White Blood Count 5.1 K/mm3 (4.4-11.0)
[2024-12-14 19:15] LABS: Differential Indicated SCAN CRITERIA MET
[2024-12-14 19:16] LABS: Anisocytosis 1+; Platelet Estimate ADEQUATE (ADEQ); Red Cell Morphology N CHROM NORMAL (NORM C&C)
[2024-12-14 19:16] LABS: Allen Test Positive; Base Excess 8 mmol/L (-2 to +2); Bicarbonate 33.3 mmol/L (22-26); Blood Gas Specimen Type ART; Mode Not entered; O2 Delivery Device Venti Mask; PO2 51 mmHG (75-100); SITE L Radial; SO2 83 % (95-99); Total Carbon Dioxide 35 mmol/L; pCO2 58.9 mmHg (35-45); pH 7.36 (7.35-7.45)
[2024-12-14 19:19] LABS: Anion Gap 6 (5-15); BUN 8 mg/dL (7-18); BUN/Creat Ratio 15.9 RATIO (10-20); Calcium,Total 8.6 mg/dL (8.5-10.1); Chloride 108 mmol/L (98-107); EST Glomerular Filtration Rate 127 mL/min (>60); Est Glom Filt Rate - Afr Amer 153 mL/min (>60); Estimated Creatinine Clearance 55.23 ml/min; Glucose 86 mg/dL (74-106); Potassium 4.5 mmol/L (3.5-5.1); Sodium Level 143 mmol/L (136-145); Troponin-I HS 9 pg/mL (3.0-54.0)
[2024-12-14 19:22] LABS: BNP,B-Type NATRIURETIC PEPTIDE 41.5 pg/mL (0-100)
--- NOTE | 2024-12-14 19:27 | RAD_ITS ---
PROCEDURE: Chest radiographs REASON FOR EXAM: Shortness of breath TECHNIQUE: Two views of the chest COMPARISON: 11/28/2024 FINDINGS: Mild cardiomegaly. Improved aeration of both lung bases. No confluent airspace consolidation, sizeable pleural effusion or pneumothorax. RAD/Chest PA and Lateral IMPRESSION: No definite acute airspace abnormality. Improved aeration of both lung bases c ompared to recent prior. Reading Location: [facility]
[2024-12-14 20:15] LABS: Bacteria 0 SEEN /hpf (None Seen); Mucous, Urine 0 SEEN /hpf (<or=2+); Squamous Epithelial Cells - UA 0 SEEN /hpf (5-10); White Blood Cells 0 SEEN /hpf (0-5)
[2024-12-14 20:25] LABS: Color, Urine Yellow (Yellow); Glucose, Dipstick Normal (Normal); Ketone-Dipstick Negative (Negative); Leukocyte Esterase-Dipstick Negative /ul (Negative); Nitrite-Dipstick Negative (Negative); Occult Blood-Urine Negative /ul (Negative); Protein-Dipstick Negative (Negative); Specific Gravity, Urine 1.015 (1.002-1.030); Urine Bilirubin Dipstick Negative (Negative); Urine Clarity Clear (Clear); Urine Urobilinogen Normal (Normal)
[2024-12-14 20:34] LABS: Red Blood Cells-Urine 0 SEEN /hpf (0-5)
--- NOTE | 2024-12-14 21:46 | HP.PCM.HOS_ITS ---
HPI - General General Date of Admission: 12/14/24 Date of Service: 12/14/24 Chief Complaint: Hypoxia, confusion. HPI Narrative The patient is a 74 y/o F w/ PMHx: Breast cancer unclear type, obesity, EtOH abuse, Chronic thrombocytopenia, Anxiety and Depression, Tobacco use, COPD/asthma, HTN, HLD, Chronic migraines, Obesity, recent discharge 12/02/2024 secondary to acute hypoxic respiratory failure secondary to COPD exacerbation with initial concerns for pneumonia eventually ruled out discharge to home per record on room air with prednisone taper and albuterol inhaler refill who now re-presents to the [facility] ED on 11/28/2024 with history of awakening from a nap at approximately 5:30 PM noted to be difficult to arouse and confused prompting EMS call reporting that she was 84% on room air placing her nasal cannula prompting ED evaluation be cautious. reports that she had improved clinically since her recent discharge and had a follow-up chest x-ray outpatient that was normal with PCP and even had breakfast and was doing things around the house without issue with unchanged chronic cough and no recent fever or chills or any changes in status until this occurred. Workup in the ED included T98.3, heart rate 86, BP 122/84, respiratory rate 22, initially 84% on room air eventually transitioning to Ventimask with 35% FiO2, most recent repeat vitals T97.9, heart rate 89, BP 131/95, respiratory rate 18, 95% on 8 L Ventimask, CBC with WBC 5.1, hemoglobin 14.2, platelet 185 without marked shift, ABG with pH 7.36, bicarb 33.3, O2 saturation 83%, pCO2 58.9, pO2 51 on Ventimask, BMP with chloride 108, BUN/creatinine 8/0.51 otherwise unremarkable, troponin 9, BNP 41.5, urinalysis unremarkable, rapid SARS COVID/influenza/RSV negative, chest x-ray with no acute cardiopulmonary findings with improved aeration from previous film. [facility] Medical History Pneumonia COPD exacerbation Acute hypoxic respiratory failure History of breast cancer Obesity Asthma Anxiety and depression Tobacco use Thrombocytopenia HLD (hyperlipidemia) Chronic neck and back pain Alcohol abuse Osteopenia Coagulation defect Popliteal aneurysm COPD (chronic obstructive pulmonary disease) History of colon polyps Hypertension Migraines Chronic bronchitis Home Medications ?Medication ?Instructions ?Recorded ?Last Taken ?Type amlodipine 5 mg tablet 5 mg PO DAILY BLOOD PRESSURE 04/27/22 12/29/22 History budesonide-formoterol HFA 80 2 puff inhalation BID FIELD LOGISTICS COORDINATOR D 09/26/22 12/29/22 History mcg-4.5 mcg/actuation aerosol inhaler (Symbicort) lactobacillus combination no.4 3 3,000 mmu cells PO DA [facility] 12/29/22 12/29/22 History billion cell capsule (Probiotic) multivitamin 1 tab PO DAILY [facility] 12/29/22 12/29/22 History polyethylene glycol 3350 17 17 g PO DAILY #119 grams 0 12/29/22 Unknown Rx gram/dose oral powder (Miralax) aspirin 81 mg capsule 81 mg PO DAILY 11/28/24 Unkn own History atorvastatin 40 mg tablet 40 mg PO DAILY 11/28/24 Unkn own History albuterol sulfate 90 mcg/actuation 2 puff inhalation Q 6H PRN 12/02/24 Unknown Rx aerosol inhaler shortness of breath or wheez ing #6.7 grams calcium carbonate (Calcium 600) 600 mg PO DAILY Unknown History clopidogrel 75 mg tablet 75 mg PO DAILY 12/14/24 Unkn own History duloxetine 30 mg capsule,delayed 30 mg PO DAILY Unknown History release magnesium 250 mg tablet 250 mg PO DAILY 12/14/24 Unk nown History methocarbamol 500 mg tablet 500 mg PO TID 12/14/24 Unk nown History potassium chloride 10 mEq 10 meq PO DAILY 12/14/24 Unk nown History tablet,extended release Allergy/AdvReac Type Severity Reaction Status Date / Time No Known Allergies Allergy Verified 12/14/24 18:36 Family History Daughter Alcoholism Anxiety Sister Diabetes Mother Heart disease Hypertension CVA (cerebral vascular accident) Father Heart disease Brother Lung cancer Surgical History S/P lumpectomy, left breast S/P spinal fusion History of Social History (Updated 12/14/24 @ 23:[address] Karen Liang MD) household members: spouse Smoking Status: Current every day smoker tobacco type: cigarettes Tobacco: How many years used: 50 second hand exposure: No alcohol intake: current alcohol intake frequency: 0-2 drinks per day Alcohol type: hard liquor details: At least 2-3 mixed heavy hard liquor drinks at least daily. substance use type: does not use what type of physical activity do you participate in: other details: silver sneakers frequency: 3-4 times per week marielos/presybeterian: Episcopal seatbelt use: always ROS Review of Systems ROS Unobtainable: due to encephalopathy Vital Signs Vital Signs Vital Signs: 12/14/24 18:36 12/14/24 18:40 12/14/24 19:20 Temperature 98.3 F 98.3 F Temperature Source Oral Oral Pulse Rate 86 84 Respiratory Rate 22 H 24 H Blood Pressure 122/84 H 122/84 H Blood Pressure Mean 96 96 Pulse Ox 86 92 93 Oxygen Delivery Method Room Air Nasal Cannula Venturi Mask Oxygen Flow Rate (L/min) 5 8 Fraction of Inspired Oxygen (FIO2) 35 12/14/24 19:39 12/14/24 20:36 12/14/24 21:00 Temperature 97.9 F 97.9 F Temperature Source Oral Oral Pulse Rate 82 84 89 Respiratory Rate 18 21 H 18 Blood Pressure 134/82 H 123/80 H 131/95 H Blood Pressure Mean 99 94 107 Pulse Ox 95 95 95 Oxygen Delivery Method Venturi Mask Venturi Mask Oxygen Flow Rate (L/min) 8 8 Fraction of Inspired Oxygen (FIO2) 12/14/24 21:38 Temperature 97.8 F Temperature Source Pulse Rate 89 Respiratory Rate 19 H Blood Pressure 151/89 H Blood Pressure Mean 109 Pulse Ox 92 Oxygen Delivery Method Oxygen Flow Rate (L/min) Fraction of Inspired Oxygen (FIO2) Weight Weight: 166 lb 14.239 oz Body Mass Index (BMI) 32.5 Physical Exam Narrative Physical Examination: General: Patient is more alert, awakens, mildly agitated but improving throughout evaluation, oriented to self but does not recall events coming up to being presented to the ED, laying in ED bed. Skin: Normal color, normal turgor, no icterus, no cyanosis except occasional stage ecchymoses, abrasion, left breast more darkened skin and orange peel like in texture. HEENT: AT/NC, EOMI although difficult assessment, PERRLA, dry MM, Ventimask in place, no carotid bruits or JVD noted. Lungs: Diminished, greater bases, mildly increased respiratory rate but no distress, no rales, ronchi or wheezing. Heart: Regular rate and rhythm; no gallop, rub audible. Abdomen: Soft, obese, NTTP, distant BS, no obvious distention or HSM but habitus makes evaluation difficult. Extremities: No cyanosis, clubbing, or edema. Neurological: Patient is more alert, awakens, mildly agitated but improving throughout evaluation, oriented to self but does not recall events coming up to being presented to the ED, laying in ED bed, cognitive function improving but still not baseline intact; pupils equally reactive to light and accommodation, cranial nerves grossly normal, moving all 4 extremities, strength moderately to severely globally decreased but improving. Psychiatric: Affect appears intermittently agitated, no acute evidence of depressive or anxiety feelings but does have underlying history. Results Lab / Micro Data 12/14/24 18:40 12/14/24 18:40 Labs: Laboratory Results - last 24 hr 12/14/24 18:40: WBC 5.1, RBC 4.03 L, Hgb 14.2, Hct 41.8, MCV 103.7 H, MCH 35.2 H , MCHC 34.0, RDW Std Deviation 66.3 H, RDW Coeff of Chelsie 17.3 H, Plt Count 185, MPV 9.9, Immature Gran % (Auto) 0.600, Neut % (Auto) 57.2, Lymph % (Auto) 27.2, [place] % (Auto) 10.6 H, Eos % (Auto) 2.6, Baso % (Auto) 1.8 H, Absolute Neuts (auto) 2.9, Absolute Lymphs (auto) 1.38, Nucleated RBC % 0, Platelet Estimate ADEQUATE, RBC Morphology N CHROM, Anisocytosis 1+, Sodium 143, Potassium 4.5, C hloride 108 H, Carbon Dioxide 29.0, Anion Gap 6, BUN 8, Creatinine 0.50 L, Estim Creat Clear Calc 55.23, Est GFR (MDRD) Af Amer 153, Est GFR (MDRD) Non-Af 127, BUN/Creatinine Ratio 15.9, Glucose 86, Calcium 8.6, Troponin I High Sens 9, B- Natriuretic Peptide 41.5 12/14/24 20:04: Urine Color Yellow, Urine Clarity Clear, Urine pH 6.0, Ur Specific [place] 1.015, Urine Protein Negative, Urine Glucose (UA) Normal, Urine Ketones Negative, Urine Occult Blood Negative, Urine Nitrite Negative, Urine Bilirubin Negative, Urine Urobilinogen Normal, Ur Leukocyte Esterase Negative, Urine RBC 0 SEEN, Urine WBC 0 SEEN, Ur Squamous Epith Cells 0 SEEN, Urine Bacteria 0 SEEN, Urine Mucus 0 SEEN 12/14/24 20:07: Ethyl Alcohol 299.0 Micro: Microbiology 12/14/24 20:04 Mucosa - Nose SARS-CoV-2, Influenza & RSV (PCR) - Final ABG Data ABG results: ABG 12/14/24 19:13 Specimen Type ART Sample Site L Radial pH 7.36 Bicarbonate Actual 33.3 H Total CO2 35 Base Excess 8 H O2 Saturation 83 L O2 % 28.0 ABG pCO2 58.9 H ABG pO2 51 L Jose Angel Test Positive O2 Delivery Device Venti Mask Vent Mode Not entered Imaging Radiology Impression Chest X-Ray 12/14/24 19:27 IMPRESSION: No definite acute airspace abnormality. Improved aeration of both lung bases compared to recent prior. Reading Location: [facility] Assessment & Plan Assessment/Plan (1) Alcohol intoxication: (2) Acute hypoxic respiratory failure: PLAN: Plan The patient is a 74 y/o F w/ PMHx: Breast cancer unclear type, obesity, EtOH abuse, Chronic thrombocytopenia, Anxiety and Depression, Tobacco use, COPD/asthma, HTN, HLD, Chronic migraines, Obesity, recent discharge 12/02/2024 secondary to acute hypoxic respiratory failure secondary to COPD exacerbation with initial concerns for pneumonia eventually ruled out discharge to home per record on room air with prednisone taper and albuterol inhaler refill who now re-presents to the [facility] ED on 11/28/2024 with history of awakening from a nap at approximately 5:30 PM noted to be difficult to arouse and confused prompting EMS call reporting that she was 84% on room air placing her nasal cannula prompting ED evaluation be cautious. #1. Acute Encephalopathy secondary to Acute Hypoxic and Hypercarbic Respiratory Failure (oxygenation decreased to 86% requiring Ventimask 8 L with FiO2 35) suspected secondary to recent Acute EtOH Intoxication and Suspected Underlying Undiagnosed RENETTA in addition to COPD/Asthma: Will admit to PCU in case of BiPAP needs, maintain on oxygen with wean as tolerated to room air although patient does mouth breathe thus usage of the Ventimask component, will maintain on ATC budesonide, PRN albuterol, will initiate overnight trending pulse oximeter, HOB, IS parameters. Will need early aggressive follow-up for sleep apnea assessment and again will initiate #2. Will need assessment for oxygen requirements for home. #2. Alcohol intoxication contributing to #1 with impending withdrawal potential: Will initiate and continue on protocol with taper course of Phenobarbital, as needed gabapentin, Catapres, Bentyl, Vistaril, IV fluids, IV antiemetics, Tylenol as needed for pain. Will consult Case management for assistance as patient would strongly benefit from continued alcohol withdrawal treatment. Mag, phos pending. Maintain on CIWA protocol concurrently. #3. History of L sided breast cancer, unclear type with concern for Recurrent L sided Breast CA unclear type: Initial diagnosis 01/2024, s/p L sided lumpectomy and several rounds of radiation only with no chemotherapy. Possibly following w/ CC Dr. Cervantes and Dr. Raymundo s/p lumpectomy. Recent admission prior with admission ED CTA of the chest with noted mild skin thickening of the left breast with subcutaneous soft tissue stranding with chronic discolored changes to the left breast which she had espoused had been more notable x 2 weeks with concerns for recurrent breast CA. This was discussed at length last admission and she was already set-up to following with her physician and did have her follow-up outpatient mammogram which was noted to be unremarkable. Discussed and still encourage continued early follow-up with her Oncology/Surgery team. #4. Chronic thrombocytopenia: Admission platelets 185, previously chronically low, last noted 12/02/2024 platelet 143, will continue to trend. #5. Hypertension: Once mentation appropriate will resume amlodipine, in the interim as needed IV hydralazine. #6. Hyperlipidemia: Per current list not on regimen, defer to outpatient. #7. Chronic migraines: Per current list patient uses Endocet as needed, given current presentation holding, would benefit outpatient from possible alternate abortive agent. #8. Anxiety and depression: Once mentation appropriate will resume citalopram regimen. #9. Tobacco Abuse: Encouraged cessation, inpatient consultation per RT, NR if desired. #10. Obesity: Weight loss and lifestyle changes encouraged. #11. DVT prophylaxis: Lovenox will continue to closely monitor CBC given history of thrombocytopenia, currently platelets improved from previous. #12. CODE status: Patient HCPOA is her who is present and living will is currently in place. Full Code status. Charges/Coding Visit Charges Inpatient E&M: 60337 Init Hosp L3
[2024-12-15] VITALS (11 sets, daily range): BP systolic 125–133; BP diastolic 70–86; PULSE 74–104; RESP 16–22; TEMP 36.4–37.1; O2SAT 85–98
[2024-12-15 00:17] LABS: Phosphorus 3.5 mg/dL (2.5-4.9)
[2024-12-15] MEDS: Lactated Ringers 1,000 ML 125 ML IV (00:17)
[2024-12-15] MEDS: Phenobarbital 32.4 MG Tablet 64.8 MG PO ×6 (00:17→19:59)
--- NOTE | 2024-12-15 02:45 | NURSING ---
This RN assuming care of this patient
[2024-12-15] MEDS: Methocarbamol 500 MG Tablet PO ×3 (04:58→21:32)
[2024-12-15 05:58] LABS: Absolute Lymphocyte Count 0.71 X10^3/uL (0.83-4.51); Absolute Neutrophil Count 6.8 X10^3/uL (2.0-7.7); Basophil# 0.06 X10^3/uL; Basophil% 0.7 % (0-1); Eosinophil# 0.08 X10^3/uL; Hematocrit 41.6 % (37-47); Lymphocyte # 0.71 X10^3/ul (0.83-4.51); Lymphocyte % 8.6 % (19-41); Mean Corp Hgb Conc 33.7 g/dL (32-36); Mean Corpuscular Hgb 35.2 pg (27.0-32.0); Mean Corpuscular Volume 104.5 fL (81-99); Monocyte# 0.58 X10^3/uL; NRBC Flagged by Analyzer 0 % (0-5); Neutrophil # 6.82 X10^3/uL (2.7-7.7); Neutrophil % 82.3 % (47-70); POSITIVE MORPHOLOGY YES; Platelet Count 163 K/mm3 (150-450); RBC Distribution Width CV 17.2 % (11.6-14.6); RBC Distribution Width SD 66.9 fl (35.1-43.9); Red Blood Count 3.98 M/mm3 (4.2-5.4); White Blood Count 8.3 K/mm3 (4.4-11.0)
[2024-12-15 06:08] LABS: Differential Indicated SCAN CRITERIA MET
[2024-12-15 06:21] LABS: ALB/GLOB Ratio 0.9 RATIO (0.9-2.4); AST(SGOT) 31 U/L (15-37); Alanine Aminotransfer ALT/SGPT 38 U/L (13-56); Alkaline Phosphatase 75 U/L (45-117); Anion Gap 7 (5-15); BUN 5 mg/dL (7-18); BUN/Creat Ratio 12.5 RATIO (10-20); Calcium,Total 8.4 mg/dL (8.5-10.1); Chloride 104 mmol/L (98-107); EST Glomerular Filtration Rate 165 mL/min (>60); Est Glom Filt Rate - Afr Amer 199 mL/min (>60); Globulin 3.4 g/dL (2.2-4.2); Glucose 83 mg/dL (74-106); Potassium 3.5 mmol/L (3.5-5.1); Protein, Total 6.4 g/dL (6.4-8.2); Sodium Level 140 mmol/L (136-145)
[2024-12-15 07:04] LABS: Anisocytosis 1+; Differential Comment SCANNED
[2024-12-15] MEDS: Budesonide Respules 0.5 MG/2 ML AMPUL.NEB. INHALATION ×2 (07:28→20:35)
--- NOTE | 2024-12-15 07:49 | PN.HOSP_ITS ---
Reason for Visit Reason for Visit: Diagnoses Alcohol use, unspecified with intoxication, unspecified (12/14/24) Acute respiratory failure with hypoxia (12/14/24) Objective Data Objective Data Vital Signs: Vital Signs Temp Pulse Resp BP Pulse Ox O2 Del Method O2 Flow Rate 97.6 F L 88 22 H 125/83 H 90 Nasal Cannula 6 12/15/24 05:16 12/15/24 07:29 12/15/24 07:29 12/15/24 05:16 12/15/24 07:29 12/15/24 07:29 12/15/24 07:29 FiO2 35 12/14/24 19:20 Oxygen Flow Rate (L/min) 6 Oxygen Delivery Method Nasal Cannula Weight: 159 lb 13.362 oz Body Mass Index (BMI) 31.1 Intake & Output: Intake and Output for Last 24 Hours 12/13/24 12/14/24 12/15/24 23:59 23:59 23:59 Intake Total 360 / 360 Output Total 1600 / 1600 Balance -1240 / -1240 Lab / Micro Data 12/15/24 05:42 12/15/24 05:42 Labs: Laboratory Results - last 24 hr 12/14/24 18:40: WBC 5.1, RBC 4.03 L, Hgb 14.2, Hct 41.8, MCV 103.7 H, MCH 35.2 H , MCHC 34.0, RDW Std Deviation 66.3 H, RDW Coeff of Chelsie 17.3 H, Plt Count 185, MPV 9.9, Immature Gran % (Auto) 0.600, Neut % (Auto) 57.2, Lymph % (Auto) 27.2, [place] % (Auto) 10.6 H, Eos % (Auto) 2.6, Baso % (Auto) 1.8 H, Absolute Neuts (auto) 2.9, Absolute Lymphs (auto) 1.38, Nucleated RBC % 0, Platelet Estimate ADEQUATE, RBC Morphology N CHROM, Anisocytosis 1+, Sodium 143, Potassium 4.5, C hloride 108 H, Carbon Dioxide 29.0, Anion Gap 6, BUN 8, Creatinine 0.50 L, Estim Creat Clear Calc 55.23, Est GFR (MDRD) Af Amer 153, Est GFR (MDRD) Non-Af 127, BUN/Creatinine Ratio 15.9, Glucose 86, Calcium 8.6, Phosphorus 3.5, Magnesium 2.0, Troponin I High Sens 9, B-Natriuretic Peptide 41.5 12/14/24 20:04: Urine Color Yellow, Urine Clarity Clear, Urine pH 6.0, Ur Specific [place] 1.015, Urine Protein Negative, Urine Glucose (UA) Normal, Urine Ketones Negative, Urine Occult Blood Negative, Urine Nitrite Negative, Urine Bilirubin Negative, Urine Urobilinogen Normal, Ur Leukocyte Esterase Negative, Urine RBC 0 SEEN, Urine WBC 0 SEEN, Ur Squamous Epith Cells 0 SEEN, Urine Bacteria 0 SEEN, Urine Mucus 0 SEEN 12/14/24 20:07: Ethyl Alcohol 299.0 12/15/24 05:42: WBC 8.3, RBC 3.98 L, Hgb 14.0, Hct 41.6, MCV 104.5 H, MCH 35.2 H , MCHC 33.7, RDW Std Deviation 66.9 H, RDW Coeff of Chelsie 17.2 H, Plt Count 163, MPV 9.0, Immature Gran % (Auto) 0.400, Neut % (Auto) 82.3 H, Lymph % (Auto) 8.6 L, [place] % (Auto) 7.0, Eos % (Auto) 1.0, Baso % (Auto) 0.7, Absolute Neuts (auto) 6.8, Absolute Lymphs (auto) 0.71 L, Nucleated RBC % 0, Differential Comment SCANNED, Anisocytosis 1+, Sodium 140, Potassium 3.5, Chloride 104, Carbon Dioxide 29.0, Anion Gap 7, BUN 5 L, Creatinine 0.40 L, Estim Creat Clear Calc 54.00, Est GFR (MDRD) Af Amer 199, Est GFR (MDRD) Non-Af 165, BUN/Creatinine Ratio 12.5, Glucose 83, Calcium 8.4 L, Total Bilirubin 0.50, AST 31, ALT 38, Alkaline Phosphatase 75, Total Protein 6.4, Albumin 3.0 L, Globulin 3.4, Albumin/Globulin Ratio 0.9 Micro: Microbiology 12/14/24 20:04 Mucosa - Nose SARS-CoV-2, Influenza & RSV (PCR) - Final ABG Data ABG results: ABG 12/14/24 19:13 Specimen Type ART Sample Site L Radial pH 7.36 Bicarbonate Actual 33.3 H Total CO2 35 Base Excess 8 H O2 Saturation 83 L O2 % 28.0 ABG pCO2 58.9 H ABG pO2 51 L Jose Angel Test Positive O2 Delivery Device Venti Mask Vent Mode Not entered Radiography Diagnostic Testing: Radiology Impression Chest X-Ray 12/14/24 19:27 IMPRESSION: No definite acute airspace abnormality. Improved aeration of both lung bases compared to recent prior. [facility] Assessment & Plan Assessment/Plan (1) Alcohol intoxication: (2) Acute hypoxic respiratory failure: PLAN: Plan The patient is a 74 y/o F admitted with confusion, difficult to arouse after her nap about 5:30 PM on the day of admission, disoriented and self repeating/echolalia. She was found unresponsive at home. Hypoxia, as per EMS 84% on room air. Patient alcohol level was found high 299. #1. Acute Encephalopathy secondary to Acute Hypoxic and Hypercarbic Respiratory Failure (oxygenation decreased to 86% requiring Ventimask 8 L with FiO2 35) suspected secondary to recent Acute EtOH Intoxication/decreased ventilation and Suspected Underlying Undiagnosed RENETTA in addition to COPD/Asthma: Patient admitted in PCU on BiPAP. ABG 7.3 on Ventimask 28% FiO2. Currently, SpO2 92% on room air. Acute respiratory failure resolved. #2. Alcohol intoxication: Potential for impending withdrawal. Patient asking for discharge. Patient on phenobarbital based order set along with other adjunctive medications gabapentin, Bentyl, Vistaril, clonidine, Klonopin as needed for alcohol withdrawal symptom control. Patient is on thiamine and folate acid. Serum magnesium and phosphorus level are normal. CIWA monitor. structural manager 180 consulted. #3. History of L sided breast cancer, unclear type and classification with concern for Recurrent L sided Breast CA unclear type: Initial diagnosis 01/2024, s/p L sided lumpectomy and several rounds of radiation only with no chemotherapy. Monday she followed with Dr. Cervantes in the past and Dr. Raymundo s/p lumpectomy. Recent admission prior with admission ED CTA of the chest with noted mild skin thickening of the left breast with subcutaneous soft tissue stranding with chronic discolored changes to the left breast: Advised early follow-up with the surgery and oncology #4. Chronic thrombocytopenia: Admission platelets 185, previously chronically low, last noted 12/02/2024 platelet 143, repeat platelet count 100 63K. #5. Hypertension: Blood pressure in normal range. #6. Hyperlipidemia: Not on a statin #7. Chronic migraines: Not an acute issue. Follow-up outpatient #8. Anxiety and depression: Hold citalopram. #9. Tobacco Abuse: Encouraged cessation, inpatient consultation per RT, NR if desired. #10. Obesity: Weight loss and lifestyle changes encouraged. #11. DVT prophylaxis: Lovenox. Discontinue if platelet count drops less than 50,000 or hemoglobin less than 8 g% #12. CODE status: Patient HCPOA is her who is present and living will is currently in place. Full Code status. Charges/Coding Visit Charges Inpatient E&M: 62453 Subs Hosp L2
[2024-12-15] MEDS: Aspirin 81 MG TAB.CHEW PO (08:28)
[2024-12-15] MEDS: Multivitamins,Ther W-Minerals Tablet 1 TABLET PO (08:29)
[2024-12-15] MEDS: Folic Acid 1 MG Tablet PO (08:29)
[2024-12-15] MEDS: Thiamine Hydrochloride 100 MG Tablet PO (08:30)
[2024-12-15] MEDS: DULoxetine Hcl 30 MG Capsule PO (10:48)
[2024-12-15] MEDS: Lactobacillis Acidophilus 1 CAP PO (10:48)
[2024-12-15] MEDS: Potassium Chloride Oral Tablet 10 MEQ PO (10:49)
[2024-12-15] MEDS: Enoxaparin 40 MG/0.4 ML Syringe SC (10:49)
[2024-12-15] MEDS: Clopidogrel Bisulfate 75 MG Tablet PO (10:50)
[2024-12-15] MEDS: amLODIPine 5 MG Tablet PO (10:50)
[2024-12-15] MEDS: Atorvastatin Calcium 40 MG Tablet PO (21:32)
[2024-12-15] MEDS: traZODone 100 MG Tablet PO (21:32)
[2024-12-16] VITALS (7 sets, daily range): BP systolic 112–127; BP diastolic 75–78; PULSE 80–103; RESP 15–18; TEMP 36.5–36.9; O2SAT 91–97
[2024-12-16] MEDS: Phenobarbital 32.4 MG Tablet 64.8 MG PO ×3 (00:14→09:42)
[2024-12-16 04:54] LABS: Absolute Neutrophil Count 3.7 X10^3/uL (2.0-7.7); Basophil# 0.05 X10^3/uL; Hemoglobin 14.3 g/dL (12.0-15.0); Mean Corpuscular Hgb 35.7 pg (27.0-32.0); Mean Corpuscular Volume 104.7 fL (81-99); Mean Platelet Vol. 9.5 fl (6.2-12.0); Monocyte# 0.42 X10^3/uL; Monocyte% 8.4 % (0-10); NRBC Flagged by Analyzer 0 % (0-5); Neutrophil # 3.73 X10^3/uL (2.7-7.7); Neutrophil % 74.4 % (47-70); Platelet Count 140 K/mm3 (150-450); RBC Distribution Width CV 16.6 % (11.6-14.6); RBC Distribution Width SD 64.3 fl (35.1-43.9); Red Blood Count 4.01 M/mm3 (4.2-5.4)
[2024-12-16 05:03] LABS: Anion Gap 7 (5-15); BUN 10 mg/dL (7-18); BUN/Creat Ratio 17.9 RATIO (10-20); Calcium,Total 8.6 mg/dL (8.5-10.1); Chloride 103 mmol/L (98-107); Creatinine, Serum 0.56 mg/dL (0.55-1.02); EST Glomerular Filtration Rate 112 mL/min (>60); Est Glom Filt Rate - Afr Amer 136 mL/min (>60); Glucose 92 mg/dL (74-106); Potassium 3.3 mmol/L (3.5-5.1); Sodium Level 140 mmol/L (136-145)
[2024-12-16] MEDS: Methocarbamol 500 MG Tablet PO (05:07)
[2024-12-16] MEDS: Budesonide Respules 0.5 MG/2 ML AMPUL.NEB. INHALATION (07:30)
[2024-12-16] MEDS: Aspirin 81 MG TAB.CHEW PO (09:42)
[2024-12-16] MEDS: Multivitamins,Ther W-Minerals Tablet 1 TABLET PO (09:42)
[2024-12-16] MEDS: Folic Acid 1 MG Tablet PO (09:42)
[2024-12-16] MEDS: Thiamine Hydrochloride 100 MG Tablet PO (09:42)
[2024-12-16] MEDS: Clopidogrel Bisulfate 75 MG Tablet PO (09:42)
[2024-12-16] MEDS: Potassium Chloride Oral Tablet 10 MEQ PO (09:42)
[2024-12-16] MEDS: Lactobacillis Acidophilus 1 CAP PO (09:42)
[2024-12-16] MEDS: amLODIPine 5 MG Tablet PO (09:43)
[2024-12-16] MEDS: DULoxetine Hcl 30 MG Capsule PO (09:43)
--- NOTE | 2024-12-16 12:58 | DCINST_ITS ---
Discharge Instructions Diet Discharge Diet: Low fat / Low cholesterol DC O2, CPAP, BIPAP needs Home O2 Discharge instructions: No Dressing / Incision Discharge Activity: Return to Normal Activity Dressing / Incision Call your doctor if you observe: Fever of 101 or Higher, Shortness of breath, Dizziness, Fainting spells, Swelling in the ankles, Chest pain and Increased palpitations (irregular heartbeat) Follow Up Care Test Results: Test results from this visit will be discussed in further detail at your follow-up appointment, if applicable. Discharge Plan Admission Admit Date/Time: 12/14/24 22:13 Attending Provider: Dave Fernandez Primary Care Provider: Mell López NP Consulting Providers: Karen Liang; Ad Villalta Discharge Orders/Prescriptions Prescriptions: Continued amlodipine 5 mg tablet 5 mg PO DAILY budesonide-formoterol [Symbicort] 80-4.5 mcg/actuation HFA aerosol inhaler 2 puff inhalation BID multivitamin Tablet 1 tab PO DAILY Probiotic 3 billion cell Capsule 3,000 mmu cells PO DAILY Rx Instructions: administer with a meal polyethylene glycol 3350 [Miralax] 17 gram/dose powder 17 g PO DAILY Qty: 119 0RF calcium carbonate [Calcium 600] 600 mg calcium (1,500 mg) tablet 600 mg PO DAILY clopidogrel 75 mg tablet 75 mg PO DAILY duloxetine 30 mg capsule,delayed release(DR/EC) 30 mg PO DAILY magnesium 250 mg tablet 250 mg PO DAILY methocarbamol 500 mg tablet 500 mg PO TID potassium chloride 10 mEq tablet extended release 10 meq PO DAILY aspirin 81 mg capsule 81 mg PO DAILY atorvastatin 40 mg tablet 40 mg PO DAILY albuterol sulfate 90 mcg/actuation HFA aerosol inhaler 2 puff inhalation Q6H PRN (Reason: shortness of breath or wheezing) Qty: 6.7 0RF Referrals / Follow Up: Mell López WEBSPHERE ARCHITECT, WEBSPHERE ARCHITECT-C [Primary Care Provider] - Within 1 Week Disposition Disposition (needs filled in before D/C Order can be placed): Home, Self Care
--- NOTE | 2024-12-16 13:02 | CHAPLAIN ---
Type of Pastoral Visit _x__ Initial Visit ___ Follow-up Visit ___ On-call Visit ___ General Patient Visit ___ Spiritual Assessment ___ Family Conference ___ Bereavement ___ Rapid Response ___ Code Blue ___ Other (describe below) Pastoral Care Referral From _x__ Patient ___ Family ___ Nurse ___ Physician ___ Yarn Dyer ___ [facility] ___ Other (describe below) Sacrament/Intervention _x__ Active listening ___ Anointing ___ Episcopalian ___ Bereavement ___ Communion ___ Samantha exploration ___ ___ Life review _x__ Prayer ___ Reconciliation ___ Sacrament of Sick _x__ Supportive presence ___ Wedding ___ Other (describe below) Pastoral Comments patient and family members are in the room; spouse says that they think patient will be going home; pt reiterates that this is her hope and plan too; pt says that she is doing better; spouse is more engaging in the conversation; all welcome prayer support as recommended first by pt; no other needs
--- NOTE | 2024-12-16 13:53 | PHA.DC.MR.R ---
Pharmacy [place] Med Reconciliation Pharmacy Service has performed discharge medication reconciliation for this patient. The patient's discharge medication list was reviewed for discrepancies and discrepancies were resolved. Medications at Discharge Home Medications amlodipine 5 mg tablet 5 mg PO DAILY BLOOD PRESSURE 04/27/22 budesonide-formoterol HFA 80 mcg-4.5 mcg/actuation aerosol inhaler (Symbicort) 2 puff inhalation BID COPD 09/26/22 lactobacillus combination no.4 3 billion cell capsule (Probiotic) 3,000 mmu cells PO DAILY GUT HEALTH 12/29/22 multivitamin 1 tab PO DAILY HEALTH MAINTENANCE 12/29/22 polyethylene glycol 3350 17 gram/dose oral powder (Miralax) 17 g PO DAILY #119 grams 12/29/22 aspirin 81 mg capsule 81 mg PO DAILY 11/28/24 atorvastatin 40 mg tablet 40 mg PO DAILY 11/28/24 albuterol sulfate 90 mcg/actuation aerosol inhaler 2 puff inhalation Q6H PRN shortness of breath or wheezing #6.7 grams 12/02/24 calcium carbonate (Calcium 600) 600 mg PO DAILY 12/14/24 clopidogrel 75 mg tablet 75 mg PO DAILY 12/14/24 duloxetine 30 mg capsule,delayed release 30 mg PO DAILY 12/14/24 magnesium 250 mg tablet 250 mg PO DAILY 12/14/24 methocarbamol 500 mg tablet 500 mg PO TID 12/14/24 potassium chloride 10 mEq tablet,extended release 10 meq PO DAILY 12/14/24
--- NOTE | 2024-12-16 14:08 | CASEMGMT ---
RN CM chart review: Patient was admitted 11/28-12/02/24 for acute hypoxic respiratory failure and COPD exacerbation. See assessment from 11/29/24. Patient was discharged to home with family support and follow-up plans in place. Patient returned to [facility] ED on 12/14/24 for confusion and was admitted for Encephalopathy, respiratory failure, and intoxification. Patient has order for discharge. RN CM in to discuss readmission and needs at discharge. Patient and state patient was taking medications as prescribed and attended follow-up appt. inquired about alcohol withdrawal, RN CM offered to have addiction counselor come and speak with patient, patient and declined and state they have pamphlet. RN CM encourage patient to follow-up with [facility] for outpatient services. states patient already has follow-up with PCP on 01/03/25, RN CM encourage patient to reach out to PCP to see if they would like patient seen sooner since patient was hospitalized again, voiced understanding. Patient and had no further questions or concerns.
--- NOTE | 2024-12-16 16:49 | PCM.DC.SUM ---
Providers Date of Admission: 12/14/24 Primary Care Physician: YO Bains Reason For Visit: ENCEPHALOPATHY, RESP FAILURE, INTOXICATION, POSS Diagnosis Discharge Diagnosis (1) Alcohol intoxication: Status: Acute Code(s): F10.929 - Alcohol use, unspecified with intoxication, unspecified (2) Acute hypoxic respiratory failure: Status: Acute Code(s): J96.01 - Acute respiratory failure with hypoxia Medications at Discharge Home Medications amlodipine 5 mg tablet 5 mg PO DAILY BLOOD PRESSURE 04/27/22 budesonide-formoterol HFA 80 mcg-4.5 mcg/actuation aerosol inhaler (Symbicort) 2 puff inhalation BID COPD 09/26/22 lactobacillus combination no.4 3 billion cell capsule (Probiotic) 3,000 mmu cells PO DAILY GUT HEALTH 12/29/22 multivitamin 1 tab PO DAILY HEALTH MAINTENANCE 12/29/22 polyethylene glycol 3350 17 gram/dose oral powder (Miralax) 17 g PO DAILY #119 grams 12/29/22 aspirin 81 mg capsule 81 mg PO DAILY 11/28/24 atorvastatin 40 mg tablet 40 mg PO DAILY 11/28/24 albuterol sulfate 90 mcg/actuation aerosol inhaler 2 puff inhalation Q6H PRN shortness of breath or wheezing #6.7 grams 12/02/24 calcium carbonate (Calcium 600) 600 mg PO DAILY 12/14/24 clopidogrel 75 mg tablet 75 mg PO DAILY 12/14/24 duloxetine 30 mg capsule,delayed release 30 mg PO DAILY 12/14/24 magnesium 250 mg tablet 250 mg PO DAILY 12/14/24 methocarbamol 500 mg tablet 500 mg PO TID 12/14/24 potassium chloride 10 mEq tablet,extended release 10 meq PO DAILY 12/14/24 Hospital Course Operations None Procedures None Summary of Care Provided Minutes Spent on Discharge: 33 Hospital Course: Per HPI: The patient is a 74 y/o F w/ PMHx: Breast cancer unclear type, obesity, EtOH abuse, Chronic thrombocytopenia, Anxiety and Depression, Tobacco use, COPD/asthma, HTN, HLD, Chronic migraines, Obesity, recent discharge 12/02/2024 secondary to acute hypoxic respiratory failure secondary to COPD exacerbation with initial concerns for pneumonia eventually ruled out discharge to home per record on room air with prednisone taper and albuterol inhaler refill who now re-presents to the [facility] ED on 11/28/2024 with history of awakening from a nap at approximately 5:30 PM noted to be difficult to arouse and confused prompting EMS call reporting that she was 84% on room air placing her nasal cannula prompting ED evaluation be cautious. reports that she had improved clinically since her recent discharge and had a follow-up chest x-ray outpatient that was normal with PCP and even had breakfast and was doing things around the house without issue with unchanged chronic cough and no recent fever or chills or any changes in status until this occurred. Workup in the ED included T98.3, heart rate 86, BP 122/84, respiratory rate 22, initially 84% on room air eventually transitioning to Ventimask with 35% FiO2, most recent repeat vitals T97.9, heart rate 89, BP 131/95, respiratory rate 18, 95% on 8 L Ventimask, CBC with WBC 5.1, hemoglobin 14.2, platelet 185 without marked shift, ABG with pH 7.36, bicarb 33.3, O2 saturation 83%, pCO2 58.9, pO2 51 on Ventimask, BMP with chloride 108, BUN/creatinine 8/0.51 otherwise unremarkable, troponin 9, BNP 41.5, urinalysis unremarkable, rapid SARS COVID/influenza/RSV negative, chest x-ray with no acute cardiopulmonary findings with improved aeration from previous film. Hospital Course: #1. Acute Encephalopathy secondary to Acute Hypoxic and Hypercarbic Respiratory Failure (oxygenation decreased to 86% requiring Ventimask 8 L with FiO2 35) suspected secondary to recent Acute EtOH Intoxication/decreased ventilation and Suspected Underlying Undiagnosed RENETTA in addition to COPD/Asthma: Patient admitted in PCU on BiPAP. ABG 7.3 on Ventimask 28% FiO2. Currently, SpO2 92% on room air. Acute respiratory failure resolved. Any mask 12/16/2024: Encephalopathy has resolved as has her respiratory failure. She not requiring oxygen at rest or with ambulation today. I discussed with her the plan for discharge she expressed understanding the risks and benefits of going home and would like to go home today. This was felt to be due to her unresponsiveness from her alcohol intoxication. #2. Alcohol intoxication: Potential for impending withdrawal. Patient asking for discharge. Patient on phenobarbital based order set along with other adjunctive medications gabapentin, Bentyl, Vistaril, clonidine, Klonopin as needed for alcohol withdrawal symptom control. Patient is on thiamine and folate acid. Serum magnesium and phosphorus level are normal. [facility] monitor. biomass production manager 180 consulted. 12/16/2024: She does not want to go through rehab or ramp therefore will be discharged home #3. History of L sided breast cancer, unclear type and classification with concern for Recurrent L sided Breast CA unclear type: Initial diagnosis 01/2024, s/p L sided lumpectomy and several rounds of radiation only with no chemotherapy. Monday she followed with Dr. Cervantes in the past and Dr. Raymundo s/p lumpectomy. Recent admission prior with admission ED CTA of the chest with noted mild skin thickening of the left breast with subcutaneous soft tissue stranding with chronic discolored changes to the left breast: Advised early follow-up with the surgery and oncology #4. Chronic thrombocytopenia: Admission platelets 185, previously chronically low, last noted 12/02/2024 platelet 143, repeat platelet count 100 63K. #5. Hypertension: Blood pressure in normal range. #6. Hyperlipidemia: Not on a statin #7. Chronic migraines: Not an acute issue. Follow-up outpatient #8. Anxiety and depression: Hold citalopram. #9. Tobacco Abuse: Encouraged cessation, inpatient consultation per RT, NR if desired. #10. Obesity: Weight loss and lifestyle changes encouraged. Physical Exam Narrative General: Alert, Oriented x3, Cooperative, No apparent distress HEENT: Atraumatic, PERRLA, EOMI, Normocephalic Oral: Moist Mucosa Neck: Supple, No JVD Lungs: Diminished, Normal air movement, No rhonchi, No wheeze, No rales Cardiovascular: Regular rate, Regular Rhythm, Normal S1, Normal S2, No murmurs Abdomen: Soft, Non Tender, Non-Distended, No Hepato-splenomegaly Extremities: No edema, Capillary Refill Less than 3 Seconds Skin: No rashes, No breakdown Musculoskeletal: No Tenderness to Palpation of Joints or Extremities Neurological: No focal neurological deficits, Motor Exam 5/5 strength throughout, Sensory exam intact to light touch and pain Psych/Mental Status: Normal Affect, Appropriate make ABG needles Weight / BMI Weight Weight: 159 lb 13.362 oz Body Mass Index (BMI) 31.1 ABG / Lab / Microbiology Data 12/16/24 03:30 12/16/24 03:30 Laboratory: Laboratory Results - last 24 hr 12/16/24 03:30: WBC 5.0, RBC 4.01 L, Hgb 14.3, Hct 42.0, MCV 104.7 H, MCH 35.7 H, MCHC 34.0, RDW Std Deviation 64.3 H, RDW Coeff of Chelsie 16.6 H, Plt Count 140 L, MPV 9.5, Immature Gran % (Auto) 0.200, Neut % (Auto) 74.4 H, Lymph % (Auto) 14.0 L, [place] % (Auto) 8.4, Eos % (Auto) 2.0, Baso % (Auto) 1.0, Absolute Neuts (auto) 3.7, Absolute Lymphs (auto) 0.70 L, Nucleated RBC % 0, Sodium 140, Potassium 3.3 L, Chloride 103, Carbon Dioxide 30.0, Anion Gap 7, BUN 10, Creatinine 0.56, Estim Creat Clear Calc 54.00, Est GFR (MDRD) Af Amer 136, Est GFR (MDRD) Non-Af 112, BUN/Creatinine Ratio 17.9, Glucose 92, Calcium 8.6 Microbiology: Microbiology 12/14/24 20:04 Mucosa - Nose SARS-CoV-2, Influenza & RSV (PCR) - Final D/C Instructions Discharge Diet: Low fat / Low cholesterol Call your doctor if you observe: Fever of 101 or Higher, Shortness of breath, Dizziness, Fainting spells, Swelling in the ankles, Chest pain and Increased palpitations (irregular heartbeat) DC O2, CPAP, BIPAP Needs PSN CPAP & BiPAP: BiPAP & CPAP Settings per PSN Fraction of Inspired Oxygen ( 35 12/14/24 19:20 FIO2) Home O2 Discharge instructions: No Meaningful Use Info Meaningful Use Meaningful Use Diagnoses (Choose all that apply): None applicable Ischemic Stroke Statin Dosing Therapy Reference: STATIN DOSE THERAPY REFERENCE: * Patients > 75 years receive moderate or high dose statin therapy. * Patients 75 years or YOUNGER should receive HIGH intensity statin dose unless contraindicated. You will be required to document reason for non-treatment if statin daily dose does not meet guidelines. HIGH DOSE STATIN THERAPY DAILY Atorvastatin > than or = to 40 mg Rosuvastatin > than or = to 20 mg Amlodipine + Atorvastatin > than or = to 2.5/40 mg Ezetimibe + Simvastatin 10/80 mg Simvastatin 80mg Discharge Plan Admission Admit Date/Time: 12/14/24 22:13 Attending Provider: Dave Fernandez Primary Care Provider: Mell López NP Consulting Providers: Karen Liang; Ad Villalta Discharge Orders/Prescriptions Prescriptions: Continued amlodipine 5 mg tablet 5 mg PO DAILY budesonide-formoterol [Symbicort] 80-4.5 mcg/actuation HFA aerosol inhaler 2 puff inhalation BID multivitamin Tablet 1 tab PO DAILY Probiotic 3 billion cell Capsule 3,000 mmu cells PO DAILY Rx Instructions: administer with a meal polyethylene glycol 3350 [Miralax] 17 gram/dose powder 17 g PO DAILY Qty: 119 0RF calcium carbonate [Calcium 600] 600 mg calcium (1,500 mg) tablet 600 mg PO DAILY clopidogrel 75 mg tablet 75 mg PO DAILY duloxetine 30 mg capsule,delayed release(DR/EC) 30 mg PO DAILY magnesium 250 mg tablet 250 mg PO DAILY methocarbamol 500 mg tablet 500 mg PO TID potassium chloride 10 mEq tablet extended release 10 meq PO DAILY aspirin 81 mg capsule 81 mg PO DAILY atorvastatin 40 mg tablet 40 mg PO DAILY albuterol sulfate 90 mcg/actuation HFA aerosol inhaler 2 puff inhalation Q6H PRN (Reason: shortness of breath or wheezing) Qty: 6.7 0RF Referrals / Follow Up: Mell López NP, [employer] [Primary Care Provider] - Within 1 Week Disposition Disposition (needs filled in before D/C Order can be placed): Home, Self Care Charges/Coding Visit Charges Inpatient E&M: 27305 Disch Hosp >30min
== END 2024-12-16 14:37 | disposition home or self-care (01) | DRG 917 ==
LOC: ED 22:42 → PCU 23:02
PROVIDERS: Internal Medicine; Physician Assistant; Admitting Provider Family Medicine; Emergency Provider Emergency Medicine; PCP Internal Medicine; Referring Provider Emergency Medicine; Visit Provider Family Medicine
DX: T51.0X1A Toxic effect of ethanol, accidental (unintentional), initial encounter (principal); J96.01 Acute respiratory failure with hypoxia; J96.02 Acute respiratory failure with hypercapnia; G92.9 Unspecified toxic encephalopathy; F10.139 Alcohol abuse with withdrawal, unspecified; J44.9 Chronic obstructive pulmonary disease, unspecified; I10 Essential (primary) hypertension; F32.A Depression, unspecified; E66.9 Obesity, unspecified; D69.6 Thrombocytopenia, unspecified; G43.709 Chronic migraine without aura, not intractable, without status migrainosus; G47.33 Obstructive sleep apnea (adult) (pediatric); E78.5 Hyperlipidemia, unspecified; F41.9 Anxiety disorder, unspecified; F17.210 Nicotine dependence, cigarettes, uncomplicated; F10.129 Alcohol abuse with intoxication, unspecified; Y90.8 Blood alcohol level of 240 mg/100 ml or more; Z11.52 Encounter for screening for COVID-19; Z79.51 Long term (current) use of inhaled steroids; Z79.02 Long term (current) use of antithrombotics/antiplatelets; Z79.82 Long term (current) use of aspirin; Z79.899 Other long term (current) drug therapy; Z85.3 Personal history of malignant neoplasm of breast; Z92.3 Personal history of irradiation
CPT/HCPCS: 36415; 36600; 71046; 80048; 80053; 81001; 82077; 82803; 83735; 83880; 84100; 84484; 85025; 87631; 93005; 94640; 94762; 97802; 99285; 99406; P9612; A4216

== ENCOUNTER → 2025-01-27 | Outpatient (CLI) | payer MEDICARE, SELFPAY ==
--- NOTE | 2025-01-27 12:55 | CT_ITS ---
PROCEDURE: CHEST WITHOUT CONTRAST ([facility]), 01/27/2025 REASON FOR EXAM: EVAL FOR PNEUMONIA RESOLUTION TECHNIQUE: CT chest was performed without IV contrast. Multiplanar reformats were generated. RADIATION DOSE SUMMARY: CTDlvol: 10.96 mGy DLP: 375.36 mGycm One or more dose reduction techniques were used (e.g., Automated exposure control, adjustment of the mA and/or kV according to patient size, use of iterative reconstruction technique). COMPARISON: 11/28/2024 FINDINGS: Note that evaluation of the vasculature, corrine, and soft tissues is limited in the absence of IV contrast. Additional limitation related to artifact from spinal fusion hardware. Heart/pericardium: Three-vessel coronary atherosclerosis and/or stents. Mild aortic and mitral annular calcification. Borderline mild cardiomegaly.. Aorta: Mild atherosclerosis with tortuosity. Pulmonary arteries: Top-normal in caliber.. Lymph nodes: Unremarkable. Lungs/pleura: Improved aeration of the lung bases now with mild airspace disease favorable for atelectasis/scarring, greatest in the lingula. Resolution of trace to small LEFT pleural effusion. Similar 3 mm. Subpleural 3 mm bilateral upper lobe nodules since 12/29/2022 (series 4, image 61 and 21). Airways: Unremarkable. Chest wall: Similar enlargement of the RIGHT lobe of the thyroid with suspected nodule measuring roughly 21 mm but difficult to measure. Partially imaged but probably slightly improved asymmetric LEFT breast tissue with skin thickening and fat stranding. Surgical clips and/or biopsy markers in the region. Upper abdomen: Grossly unremarkable. Musculoskeletal: Partially imaged thoracolumbar spinal fusion with T12 laminectomy crossing T12 and L1 burst fractures, similar appearance to prior. Demineralization. Multilevel spondylosis. Multilevel kyphoplasty/vertebroplasty. Old bilateral rib fractures. CT/Chest without Contrast IMPRESSION: 1. Near-complete resolution of previous airspace disease. Findings now appear compatible with atelectasis/scarring. Resolution of previous trace to small LEFT pleural effusion. 2. Partially imaged but probably slightly improved asymmetric skin thickening, breast tissue, and subcutaneous stranding in the LEFT breast. Correlate for improved although persistent mastitis versus contu april and recommend dedicated mammographic follow-up as these findings are not well evaluated by CT and an inflammatory ne oplasm can not be excluded. Surgical clips in the region. 3. Recommend thyroid ultrasound. 4. description as above. Reading Location: [id number]
== END | disposition home or self-care (01) ==
LOC: CT 12:43
PROVIDERS: PCP Internal Medicine; Referring Provider Nurse Practitioner Acute Care; Visit Provider Nurse Practitioner Acute Care
DX: J18.9 Pneumonia, unspecified organism (principal)
CPT/HCPCS: 71250

== ENCOUNTER → 2025-01-31 | Outpatient (CLI) | payer MEDICARE, SELFPAY | END | disposition home or self-care (01) | LOC: PSN 06:47 | PROVIDERS: PCP Internal Medicine; Referring Provider Nurse Practitioner Acute Care; Visit Provider Nurse Practitioner Acute Care | DX: J44.9 Chronic obstructive pulmonary disease, unspecified (principal) | CPT/HCPCS: 94060; 94726; 94729 ==